=== PATIENT | male | born 1945 | race Caucasian/White ===

== ENCOUNTER → 2016-08-26 | Outpatient (CLI) | payer MEDICARE ==
[~2016-08-26] MED LIST: /AMIT10TA PO; /DULO30CA PO; /TAMS4CA PO; ATOR1TAB19 PO; FURO20TA2 PO; GABA-279 PO; GABA300C3 PO; OXYC10TA12 PO; OXYC30TA84 PO; OXYCPOW25 PO; PROS5TAB PO; QUET50TA2 PO; ROBA750T4 PO; TRAZ50TA4 PO; VIST25CA PO; VITA400T PO; VITA500C24 PO; elmiron PO; vitamin d PO
--- NOTE | 2016-09-11 02:13 | ECWPNPC ---
PATIENT NAME: NBA DORMAN : 1945 GENDER: MALE VISIT DATE: 08/26/2016 DISCHARGE DATE: 08/26/16 1458 VISIT LOCKED DATE TIME: PHYSICIAN: CHRYSTAL PARKER RESOURCE: CHRYSTAL PARKER REASON FOR APPOINTMENT 1. BLADDER HISTORY OF PRESENT ILLNESS HISTORY OF PRESENT ILLNESS: PAIN THE PATIENT DESCRIBES THE PAIN... FALL RISK SCREENING: SCREENING :NO FALLS IN THE PAST YEAR TODAY'S VISIT: NOTES: RATES PAIN TODAY 4/10. I HAVING SHARP SHOOTING PAIN IN LEFT LEG, AND NOTES LEG IS NUMB "ALL THE WAY DOWN" WHILE BE SEEING UROLOGY FOR A PSA AND UA ON 09/12/16. IS STILL HAVING BLADDDER PAIN WORST IN AM AND IN LATE EVENING.. CURRENT MEDICATIONS TAKING VITAMIN C 500 MG TABLET 1TAB ORALLY DAILY TAKING VITAMIN D 1000 TABLET 1TAB ORALLY DAILY TAKING FUROSEMIDE 20 MG TABLET 2 TABLET ORALLY ONCE A DAY TAKING TRAZODONE 100 100MG TABLET ORAL BEFORE BEDTIME TAKING FINASTERIDE 5 MG TABLET 1 TABLET ORALLY ONCE A DAY TAKING ATORVASTATIN CALCIUM 10 MG TABLET 1 TABLET ORALLY ONCE A DAY TAKING VITAMIN B COMPLEX - TABLET 1 TAB ORALLY ONCE DAILY TAKING CLONIDINE HCL 0.1 MG TABLET 1 TABLET ORALLY Q 8 HRS PRN WITHDRAWAL SYMPTOMS TAKING GABAPENTIN 300 MG CAPSULE 1 CAPSULE ORALLY FOUR TIMES DAILY TAKING FLOMAX 0.4 MG CAPSULE 2 CAPSULES ORALLY ONCE DAILY TAKING METHOCARBAMOL 750 MG TABLET 1 TABLET ORALLY TWICE A DAY TAKING OXYCODONE HCL 10 MG TABLET 1 TABLET ORALLY EVERY 6 HRS PRN PAIN MDD=4 TAKING DULOXETINE HCL 60 MG CAPSULE DELAYED RELEASE PARTICLES 1 CAPSULE ORALLY ONCE A DAY TAKING ROBAFEN 100 MG/5ML SYRUP 10 ML ORALLY EVERY 4 HRS NOT-TAKING MUCINEX 600 MG TABLET EXTENDED RELEASE 12 HOUR 1 TABLET NEEDED ORALLY EVERY 12 HRS UNKNOWN QUETIAPINE FUMARATE 50 MG TABLETS 2 TABLET AT BEDTIME ORALLY ONCE A DAY MEDICATION LIST REVIEWED AND RECONCILED WITH THE PATIENT PAST MEDICAL HISTORY ARTHRITIS GERD FIBROMYALGIA EDEMA TENDON SEPARATION RIGHT SHOULDER ALLERGIES N.K.D.A. SURGICAL HISTORY HIP REPLACEMENT 1996 MEDIAN NERVE SURGERY 2008 CYSTOSCOPY/HYDRODISTENSION 06/2011 REVISION OF LEFT HIP ARTHROPLASTY 04/2016 SOCIAL HISTORY GENERAL: TOBACCO USE ARE YOU A:NONSMOKER LEARNING BARRIERS / SPECIAL NEEDS ORIENTED TO PLAN OF CARE: PATIENT, PAIN MANAGEMENT PATIENT, ORIENTED TO PLAN OF CARE: PATIENT, PAIN MANAGEMENT PATIENT. NEW PATIENT PAIN DIARY TODAY'S VISITNOTES FROM 0-10, WHAT LEVEL IS YOUR PAIN TODAY?0 PAIN CLINIC PFS, CLERGY, PUBLIC HEALTH REFERRALS PFS REFERRAL NEEDED?NO CLERGY REFERRAL NEEDED?NO PUBLIC HEALTH REFERRAL NEEDED?NO WAS THE PROVIDER NOTIFIED OF ANY PERTINENT INFO?NO PFS REFERRAL NEEDED?NO CLERGY REFERRAL NEEDED?NO PUBLIC HEALTH REFERRAL NEEDED?NO WAS THE PROVIDER NOTIFIED OF ANY PERTINENT INFO?NO HOSPITALIZATION/MAJOR DIAGNOSTIC PROCEDURE SURGICAL RELATED REVIEW OF SYSTEMS CONSTITUTIONAL: ANY CHANGE IN YOUR MEDICAL CONDITION? NO . CHILLS NO . FEVER NO . INFECTION: DO YOU HAVE NEW INFECTIONS? NO . DO YOU HAVE HISTORY OF MRSA? NO . MUSCULOSKELETAL: ANY NEW PATTERNS OF PAIN OR NUMBNESS? NO . GASTROENTEROLOGY: ANY NEW CHANGE IN BOWEL CONTROL? NO . GENITOURINARY: ANY NEW CHANGE IN BLADDER CONTROL? NO . IS THERE A CHANCE YOU COULD BE ? NO . HEMATOLOGY/LYMPH: DO YOU TAKE ANY BLOOD THINNERS? (FOR EXAMPLE- COUMADIN, PLAVIX, AGGRENOX, PLATEL, PRADAXA, OR XARELTO) NO . WHEN WAS YOUR LAST DOSE? DATE: TIME: . NEUROLOGY: HAVE YOU FALLEN IN THE PAST 6 MONTHS? NO . ANY NEW EXTREMITY NUMBNESS OR WEAKNESS? YES NEW TINGLING LEFT FOOT X 2 MOS SINCE LEFT HIP SURGERY. SEES JAMILA APODACA 08/30/16. . CARDIOLOGY: DO YOU HAVE A PACEMAKER OR DEFIBRILLATOR? NO . RESPIRATORY: HAVE YOU BEEN SICK IN THE PAST WEEK? NO . FEVER NO . FLU LIKE SYMPTOMS? NO . COUGH NO . INTEGUMENTARY: DO YOU HAVE ANY RASHES OR OPEN SORES? NO . ALLERGIC/IMMUNO: ARE YOU ALLERGIC TO SHELLFISH OR IV DYE? NO . ANY NEW ALLERGIES? NO . PSYCHIATRIC: DO YOU HAVE THOUGHTS OF HURTING YOURSELF OR SOMEONE ELSE? NO . ARE YOU ABUSED, NEGLECTED, OR IN AN UNSAFE ENVIRONMENT? NO . ENDOCRINOLOGY: ARE YOU DIABETIC? NO . OTHER: DO YOU NEED ANY PRESCRIPTIONS? NO . IF YES, PLEASE LIST: ____ . ANY NEW PROBLEMS WITH YOUR MEDICATIONS? NO . WHEN DID YOU LAST EAT? ____ . WHEN DID YOU LAST DRINK? ____ . WHAT DID YOU LAST DRINK? ____ . NAME OF PERSON DRIVING YOU HOME? ____ . DO YOU HAVE ANY OTHER QUESTIONS OR CONCERNS NO . UROLOGY: GENERAL VERY POOR SLEEP DUE TO NOCTURIA . REVIEWED BY: PROVIDER: CHRYSTAL GROSS . VITAL SIGNS WT 190 LBS, HT 60 IN, BMI 37.10 INDEX, BP 157/74 MM HG, HR 78 /MIN, RR 16 /MIN, TEMP 97.7 F, OXYGEN SAT % 93%, NA INITIALS SC 14:07, REVIEWED BY: MLF. EXAMINATION GENERAL EXAMINATION: GENERAL APPEARANCE:GOOD COLOR. PSYCHALERT , ORIENTED X 3 , ANXIOUS. LUNGS:FEW SCATTERED WHEEZES. NO RALES/CRACKLES. FULL RESPIRATORY EXCURSION NOTED. HEART:HEART RATE REGULAR, NO S3, S4, MURMUR OR RUB. ABDOMEN:SOFT, DISTENDED, ACTIVE BOWEL SOUNDS.. MALE GENITOURINARY:TENDER WITH PALPATION OVER BLADDER/SYMPHISIS PUBIS. MUSCULOSKELETAL:MUSCLE STRENGTH TESTING 5/5 BILATERAL LPOWER EXTREMITIES. CANE USED FOR BALANCE. NO PAIN WITH PALPATION OVER LOW BACK.. EXTREMITIES:1+ ON RIGHT 2+ ON LEFT. 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 FOLLOW UP WITH UROLOGY AND ORTHOPEDICAS SLOWLY START HIP EXERCISES PER PHYSICAL THERAPY, FALLS CARE PLAN: 1. RECOMMEND REMOVING ALL THROW RUGS. 2. RECOMMEND NIGHT LIGHTS 3. RECOMMEND WEARING RUBBER SOLED SHOES AND TO NOT GO BAREFOOT. 4.. ADVISED TO CHANGE POSITION SLOWLY FROM SUPINE TO STANDING TO AVOID DIZZINESS. 5. ADVISED TO USE ASSISTIVE DEVICE SUCH CANE OR WALKER 6. , #128 - SCREENING BMI AND F/U PLAN IN : BMI ABOVE NORMAL TODAY. DISCUSSED WITH PATIENT NUTRITIONAL FOOD CHOICES TO ASSIST WITH WEIGHT LOSS. RECCOMMENDED REDUCING SALT, SUGAR, SODA INTAKE. RECOMMEND INCREASE ACTIVITY TO INCLUDE WALKING ON A REGULAR BASIS. CLINICAL NOTES: ISTOP REGISTRY REVIEWED AND DEMNOSTRATES COMPLLIANCE. BRINGS IN MEDICATIONS WHICH IS APPROPRIATE FOR WHAT WAS DISPENSED. RECENT URINE TOXICOLOGY REVIEWED. NO UNAUTHORIZED MEDICATIONS. NO ILLICIT SUBSTANCES AND PRESCRIBED MEDICATIONS WERE PRESENT. PROCEDURE CODES FA211 ESTABILISHED PATIENT [facility] CHARGE G6232 BP SCR PRFRM RCMDD DEFIND SCR INTVL G3415 PAIN ASSESS POS TOOL F/U PLAN DOC 3016F PT SCRND UNHLTHY [place] USE 1124F ACP DISCUSS-NO DSCNMKR DOCD 1036F TOBACCO NON-USER 0518F FALL PLAN OF CARE DOCD G8427 DOC MEDS VERIFIED W/PT OR RE G8417 BMI >=30 CALCUATE W/FOLLOWUP 3288F FALL RISK ASSESSMENT DOCD FOLLOW UP 7 WEEKS ELECTRONICALLY SIGNED BY CONSUELO CUELLAR ON 09/09/2016 AT 01:17 PM EST DISCLAIMER : THIS IS A VISIT SUMMARY EXTRACTED FROM THE [employer] CHART. IT IS NOT A COPY OF THE [employer] PROGRESS NOTE. MTDD
== END ==
LOC: M PAIN 14:20
PROVIDERS: ATTEND Nurse Practitioner Family
DX: Z09 Encounter for follow-up examination after completed treatment for conditions other than malignant neoplasm (principal); N30.10 Interstitial cystitis (chronic) without hematuria; R39.89 Other symptoms and signs involving the genitourinary system; M19.90 Unspecified osteoarthritis, unspecified site; K21.9 Gastro-esophageal reflux disease without esophagitis; M79.7 Fibromyalgia; Z79.891 Long term (current) use of opiate analgesic; Z79.899 Other long term (current) drug therapy

== ENCOUNTER → 2016-09-05 | Outpatient (CLI) | payer MEDICARE | LOC: M SMT 15:11 | PROVIDERS: ATTEND Nurse Practitioner Family | CPT/HCPCS: 36415; 81001; 87086; G0103 ==

== ENCOUNTER → 2016-11-01 | Outpatient (CLI) | payer MEDICARE ==
--- NOTE | 2016-11-06 23:39 | ECWPNPC ---
PATIENT NAME: NBA DORMAN : 1945 GENDER: MALE VISIT DATE: 11/01/2016 DISCHARGE DATE: 11/01/16 1612 VISIT LOCKED DATE TIME: PHYSICIAN: CHRYSTAL PARKER RESOURCE: CHRYSTAL PARKER REASON FOR APPOINTMENT 1. BLADDER HISTORY OF PRESENT ILLNESS HISTORY OF PRESENT ILLNESS: PAIN THE PATIENT DESCRIBES THE PAIN... FALL RISK SCREENING: SCREENING :NO FALLS IN THE PAST YEAR TODAY'S VISIT: NOTES: BLADDER PAIN UNCHANGED. RATES PAIN TODAY 5/10. EXPRESSES FRUSTRATION THAT HE IS STILL HAVING PAIN IN HIS LEFT HIP. ALSO NOTES THAT HE HAS NOT GONE OUT OF THE HOUSE IN WEEKS AND IS FEELING QUITE DEPRESSED. DENIES SUICIDAL THOUGHTS OR A PLAN.. CURRENT MEDICATIONS TAKING VITAMIN C 500 MG TABLET 1TAB ORALLY DAILY TAKING FUROSEMIDE 20 MG TABLET 2 TABLET ORALLY ONCE A DAY TAKING TRAZODONE 100 100MG TABLET ORAL BEFORE BEDTIME TAKING FINASTERIDE 5 MG TABLET 1 TABLET ORALLY ONCE A DAY TAKING ATORVASTATIN CALCIUM 10 MG TABLET 1 TABLET ORALLY ONCE A DAY TAKING VITAMIN B COMPLEX - TABLET 1 TAB ORALLY ONCE DAILY TAKING GABAPENTIN 300 MG CAPSULE 1 CAPSULE ORALLY FOUR TIMES DAILY TAKING DULOXETINE HCL 60 MG CAPSULE DELAYED RELEASE PARTICLES 1 CAPSULE ORALLY ONCE A DAY TAKING ROBAFEN 100 MG/5ML SYRUP 10 ML ORALLY EVERY 4 HRS TAKING AMITRIPTYLINE HCL 10 MG TABLET 1 TABLET ORALLY ONCE A DAY TAKING FLOMAX 0.4 MG CAPSULE 2 CAPSULES ORALLY ONCE A DAY TAKING OXYCODONE HCL 10 MG TABLET 1 TABLET ORALLY EVERY 6 HRS PRN PAIN MDD=4 TAKING VITAMIN D 1000 TABLET 1TAB ORALLY DAILY TAKING METHOCARBAMOL 750 MG TABLET 1 TABLET ORALLY TWICE A DAY NOT-TAKING PROSCAR 5 MG TABLET 1 TABLET ORALLY ONCE A DAY NOT-TAKING CLONIDINE HCL 0.1 MG TABLET 1 TABLET ORALLY Q 8 HRS PRN WITHDRAWAL SYMPTOMS NOT-TAKING MUCINEX 600 MG TABLET EXTENDED RELEASE 12 HOUR 1 TABLET NEEDED ORALLY EVERY 12 HRS UNKNOWN QUETIAPINE FUMARATE 50 MG TABLETS 2 TABLET AT BEDTIME ORALLY ONCE A DAY MEDICATION LIST REVIEWED AND RECONCILED WITH THE PATIENT PAST MEDICAL HISTORY ARTHRITIS GERD FIBROMYALGIA EDEMA TENDON SEPARATION RIGHT SHOULDER ALLERGIES N.K.D.A. SOCIAL HISTORY GENERAL: TOBACCO USE ARE YOU A:NONSMOKER LEARNING BARRIERS / SPECIAL NEEDS ORIENTED TO PLAN OF CARE: PATIENT, PAIN MANAGEMENT PATIENT, ORIENTED TO PLAN OF CARE: PATIENT, PAIN MANAGEMENT PATIENT. NEW PATIENT PAIN DIARY TODAY'S VISITNOTES FROM 0-10, WHAT LEVEL IS YOUR PAIN TODAY?0 PAIN CLINIC PFS, CLERGY, PUBLIC HEALTH REFERRALS PFS REFERRAL NEEDED?NO CLERGY REFERRAL NEEDED?NO PUBLIC HEALTH REFERRAL NEEDED?NO WAS THE PROVIDER NOTIFIED OF ANY PERTINENT INFO?NO PFS REFERRAL NEEDED?NO CLERGY REFERRAL NEEDED?NO PUBLIC HEALTH REFERRAL NEEDED?NO WAS THE PROVIDER NOTIFIED OF ANY PERTINENT INFO?NO REVIEW OF SYSTEMS CONSTITUTIONAL: ANY CHANGE IN YOUR MEDICAL CONDITION? NO . CHILLS NO . FEVER NO . INFECTION: DO YOU HAVE NEW INFECTIONS? NO . DO YOU HAVE HISTORY OF MRSA? NO . MUSCULOSKELETAL: ANY NEW PATTERNS OF PAIN OR NUMBNESS? NO . GASTROENTEROLOGY: ANY NEW CHANGE IN BOWEL CONTROL? NO . GENITOURINARY: ANY NEW CHANGE IN BLADDER CONTROL? NO . IS THERE A CHANCE YOU COULD BE ? NO . HEMATOLOGY/LYMPH: DO YOU TAKE ANY BLOOD THINNERS? (FOR EXAMPLE- COUMADIN, PLAVIX, AGGRENOX, PLATEL, PRADAXA, OR XARELTO) NO . WHEN WAS YOUR LAST DOSE? DATE: TIME: . NEUROLOGY: HAVE YOU FALLEN IN THE PAST 6 MONTHS? NO . ANY NEW EXTREMITY NUMBNESS OR WEAKNESS? NO . CARDIOLOGY: DO YOU HAVE A PACEMAKER OR DEFIBRILLATOR? NO . RESPIRATORY: HAVE YOU BEEN SICK IN THE PAST WEEK? NO . FEVER NO . FLU LIKE SYMPTOMS? NO . COUGH YES WITH OCCASIONAL PRODUCTION. COUGH PRODUCES SPASMS AND THIS INCREASES PAIN . INTEGUMENTARY: DO YOU HAVE ANY RASHES OR OPEN SORES? NO . ALLERGIC/IMMUNO: ARE YOU ALLERGIC TO SHELLFISH OR IV DYE? NO . ANY NEW ALLERGIES? NO . PSYCHIATRIC: DO YOU HAVE THOUGHTS OF HURTING YOURSELF OR SOMEONE ELSE? NO . ARE YOU ABUSED, NEGLECTED, OR IN AN UNSAFE ENVIRONMENT? NO . ENDOCRINOLOGY: ARE YOU DIABETIC? NO . OTHER: DO YOU NEED ANY PRESCRIPTIONS? NO . IF YES, PLEASE LIST: ____ . ANY NEW PROBLEMS WITH YOUR MEDICATIONS? NO . WHEN DID YOU LAST EAT? ____ . WHEN DID YOU LAST DRINK? ____ . WHAT DID YOU LAST DRINK? ____ . NAME OF PERSON DRIVING YOU HOME? ____ . DO YOU HAVE ANY OTHER QUESTIONS OR CONCERNS NO . REVIEWED BY: PROVIDER: CHRYSTAL PARKER CHIEF EXECUTIVE OFFICER . VITAL SIGNS WT 201.4 LBS, HT 60 IN, BMI 39.33 INDEX, BP 151/71 MM HG, HR 80 /MIN, RR 18 /MIN, TEMP 99.4 F, OXYGEN SAT % 93%, NA INITIALS SC 15:09, REVIEWED BY: KG. EXAMINATION GENERAL EXAMINATION: GENERAL APPEARANCE:GOOD COLOR. PSYCHALERT , ORIENTED X 3 , ANXIOUS. LUNGS:FEW SCATTERED WHEEZES. NO RALES/CRACKLES. FULL RESPIRATORY EXCURSION NOTED. HEART:HEART RATE REGULAR, NO S3, S4, MURMUR OR RUB. ABDOMEN:SOFT, DISTENDED, ACTIVE BOWEL SOUNDS.. MALE GENITOURINARY:TENDER WITH PALPATION OVER BLADDER/SYMPHISIS PUBIS. MUSCULOSKELETAL:MUSCLE STRENGTH TESTING 5/5 BILATERAL LPOWER EXTREMITIES. CANE USED FOR BALANCE. NO PAIN WITH PALPATION OVER LOW BACK. TENDER WITH PALPATION OVER LEFT TROCANTER. EXTREMITIES:1+ ON RIGHT 2+ ON LEFT. 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 PROCEDURE CODES FA211 ESTABILISHED PATIENT [facility] CHARGE G8730 PAIN ASSESS POS TOOL F/U PLAN DOC G8427 DOC MEDS VERIFIED W/PT OR RE DISPOSITION & COMMUNICATION FOLLOW UP 4-6 WEEKS ELECTRONICALLY SIGNED BY CONSUELO CUELLAR ON 11/06/2016 AT 09:04 AM EDT DISCLAIMER : THIS IS A VISIT SUMMARY EXTRACTED FROM THE [employer] CHART. IT IS NOT A COPY OF THE [employer] PROGRESS NOTE. CHARBEL
== END ==
LOC: M PAIN 15:00
PROVIDERS: ATTEND Nurse Practitioner Family
DX: N30.10 Interstitial cystitis (chronic) without hematuria (principal); N40.0 Benign prostatic hyperplasia without lower urinary tract symptoms; R39.89 Other symptoms and signs involving the genitourinary system; Z79.891 Long term (current) use of opiate analgesic; Z79.899 Other long term (current) drug therapy

== ENCOUNTER → 2016-12-13 | Outpatient (CLI) | payer MEDICARE ==
[~2016-12-13] MED LIST changes: +BENZ100C5 PO; +DULO1CAP3 PO; +FLOM5CAP PO; +GABA-282 PO; -GABA300C3 PO; +PANT40TA2 PO; +STOO100C PO; +VITA-130 PO; +VITA100037 PO; +VITATAB11 PO
--- NOTE | 2017-01-03 00:49 | ECWPNPC ---
PATIENT NAME: NBA DORMAN : 1945 GENDER: MALE VISIT DATE: 12/13/2016 DISCHARGE DATE: 12/13/16 1433 VISIT LOCKED DATE TIME: PHYSICIAN: CHRYSTAL PARKER RESOURCE: CHRYSTAL PARKER REASON FOR APPOINTMENT 1. BLADDER HISTORY OF PRESENT ILLNESS HISTORY OF PRESENT ILLNESS: PAIN THE PATIENT DESCRIBES THE PAIN... FALL RISK SCREENING: SCREENING :NO FALLS IN THE PAST YEAR TODAY'S VISIT: NOTES: RATES PAIN TODAY 4/10. DESCRIBES PAIN INTERMITTANT, SHARP, AND STABBING, BURNING AND IS LOCATED IN BLADDER AREA. . CURRENT MEDICATIONS TAKING VITAMIN C 500 MG TABLET 1TAB ORALLY DAILY TAKING FUROSEMIDE 20 MG TABLET 2 TABLET ORALLY ONCE A DAY TAKING TRAZODONE 100 100MG TABLET ORAL BEFORE BEDTIME TAKING FINASTERIDE 5 MG TABLET 1 TABLET ORALLY ONCE A DAY TAKING ATORVASTATIN CALCIUM 10 MG TABLET 1 TABLET ORALLY ONCE A DAY TAKING DULOXETINE HCL 60 MG CAPSULE DELAYED RELEASE PARTICLES 1 CAPSULE ORALLY ONCE A DAY TAKING FLOMAX 0.4 MG CAPSULE 2 CAPSULES ORALLY ONCE A DAY TAKING VITAMIN D 1000 TABLET 1TAB ORALLY DAILY TAKING METHOCARBAMOL 750 MG TABLET 1 TABLET ORALLY TWICE A DAY TAKING VITAMIN B COMPLEX - TABLET 1 TAB ORALLY ONCE DAILY TAKING GABAPENTIN 300 MG CAPSULE 1 CAPSULE ORALLY FOUR TIMES DAILY TAKING OXYCODONE HCL 10 MG TABLET 1 TABLET ORALLY EVERY 6 HRS PRN PAIN MDD=4 TAKING BENZONATATE 100 MG CAPSULE 1 CAPSULE NEEDED ORALLY THREE TIMES A DAY NEEDED FOR COUGH TAKING PANTOPRAZOLE SODIUM 40 MG TABLET DELAYED RELEASE 1 TABLET ORALLY TWICE A DAY TAKING COLACE 100 MG CAPSULE 2 CAPSULE NEEDED ORALLY ONCE A DAY NOT-TAKING ROBAFEN 100 MG/5ML SYRUP 10 ML ORALLY EVERY 4 HRS NOT-TAKING PROSCAR 5 MG TABLET 1 TABLET ORALLY ONCE A DAY NOT-TAKING CLONIDINE HCL 0.1 MG TABLET 1 TABLET ORALLY Q 8 HRS PRN WITHDRAWAL SYMPTOMS NOT-TAKING MUCINEX 600 MG TABLET EXTENDED RELEASE 12 HOUR 1 TABLET NEEDED ORALLY EVERY 12 HRS UNKNOWN QUETIAPINE FUMARATE 50 MG TABLETS 2 TABLET AT BEDTIME ORALLY ONCE A DAY MEDICATION LIST REVIEWED AND RECONCILED WITH THE PATIENT PAST MEDICAL HISTORY ARTHRITIS GERD FIBROMYALGIA EDEMA TENDON SEPARATION RIGHT SHOULDER ALLERGIES N.K.D.A. REVIEW OF SYSTEMS CONSTITUTIONAL: ANY CHANGE IN YOUR MEDICAL CONDITION? NO . CHILLS NO . FEVER NO . INFECTION: DO YOU HAVE NEW INFECTIONS? NO . DO YOU HAVE HISTORY OF MRSA? NO . MUSCULOSKELETAL: ANY NEW PATTERNS OF PAIN OR NUMBNESS? NO . GASTROENTEROLOGY: ANY NEW CHANGE IN BOWEL CONTROL? NO . ACID REFLUX TO BE EVALUATED WITH UPCOMING ENDOSCOPY . GENITOURINARY: ANY NEW CHANGE IN BLADDER CONTROL? NO . IS THERE A CHANCE YOU COULD BE ? NO . HEMATOLOGY/LYMPH: DO YOU TAKE ANY BLOOD THINNERS? (FOR EXAMPLE- COUMADIN, PLAVIX, AGGRENOX, PLATEL, PRADAXA, OR XARELTO) NO . WHEN WAS YOUR LAST DOSE? DATE: TIME: . NEUROLOGY: HAVE YOU FALLEN IN THE PAST 6 MONTHS? NO . ANY NEW EXTREMITY NUMBNESS OR WEAKNESS? NO . CARDIOLOGY: DO YOU HAVE A PACEMAKER OR DEFIBRILLATOR? NO . RESPIRATORY: HAVE YOU BEEN SICK IN THE PAST WEEK? NO . FEVER NO . FLU LIKE SYMPTOMS? NO . COUGH YES - THICK MUCOUS, HARD TO EXPECTORATE. WHEN ASKED SPECIFICALLY STATES TESSALON PERLES ARE MINIMALLY EFFECTIVE . INTEGUMENTARY: DO YOU HAVE ANY RASHES OR OPEN SORES? NO . ALLERGIC/IMMUNO: ARE YOU ALLERGIC TO SHELLFISH OR IV DYE? NO . ANY NEW ALLERGIES? NO . PSYCHIATRIC: DO YOU HAVE THOUGHTS OF HURTING YOURSELF OR SOMEONE ELSE? NO . ARE YOU ABUSED, NEGLECTED, OR IN AN UNSAFE ENVIRONMENT? NO . ENDOCRINOLOGY: ARE YOU DIABETIC? NO . OTHER: DO YOU NEED ANY PRESCRIPTIONS? YES . IF YES, PLEASE LIST: BENZONATATE . ANY NEW PROBLEMS WITH YOUR MEDICATIONS? NO . WHEN DID YOU LAST EAT? ____ . WHEN DID YOU LAST DRINK? ____ . WHAT DID YOU LAST DRINK? ____ . NAME OF PERSON DRIVING YOU HOME? ____ . DO YOU HAVE ANY OTHER QUESTIONS OR CONCERNS NO . PSYCHOLOGY: DEPRESSION DEPRESSED MOOD - LACK OF DESIRE TO PARTICIPATE . REVIEWED BY: PROVIDER: CHRYSTAL GROSS . VITAL SIGNS WT 199.0 LBS, HT 60 IN, BMI 38.86 INDEX, BP 132/69 MM HG, HR 73 /MIN, RR 16 /MIN, TEMP 98.7 F, OXYGEN SAT % 96%, NA INITIALS TL 1404, REVIEWED BY: CS. EXAMINATION GENERAL EXAMINATION: GENERAL APPEARANCE:GOOD COLOR. PSYCHALERT , ORIENTED X 3 , ANXIOUS. LUNGS:FEW SCATTERED WHEEZES. NO RALES/CRACKLES. FULL RESPIRATORY EXCURSION NOTED. HEART:HEART RATE REGULAR, NO S3, S4, MURMUR OR RUB. ABDOMEN:SOFT, DISTENDED, ACTIVE BOWEL SOUNDS.. MALE GENITOURINARY:TENDER WITH PALPATION OVER BLADDER/SYMPHISIS PUBIS. MUSCULOSKELETAL:MUSCLE STRENGTH TESTING 5/5 BILATERAL LPOWER EXTREMITIES. CANE USED FOR BALANCE. NO PAIN WITH PALPATION OVER LOW BACK. TENDER WITH PALPATION OVER LEFT TROCANTER. EXTREMITIES:1+ ON RIGHT 2+ ON LEFT. 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 CONTINUE WALKING. KEEP APPOINTMENT WITH HIP SURGEON. RESTART PHYSICAL THERAPY. PROCEDURE CODES FA211 ESTABILISHED PATIENT [facility] CHARGE G8730 PAIN ASSESS POS TOOL F/U PLAN DOC G8427 DOC MEDS VERIFIED W/PT OR RE DISPOSITION & COMMUNICATION FOLLOW UP 2 MONTHS (REASON: BLADDER PAIN) ELECTRONICALLY SIGNED BY CONSUELO CUELLAR ON 01/02/2017 AT 06:05 PM EDT DISCLAIMER : THIS IS A VISIT SUMMARY EXTRACTED FROM THE [employer] CHART. IT IS NOT A COPY OF THE [employer] PROGRESS NOTE. CHARBEL
== END | disposition home or self-care (01) ==
LOC: M PAIN 14:00
PROVIDERS: ATTEND Nurse Practitioner Family
DX: G89.29 Other chronic pain (principal); N30.10 Interstitial cystitis (chronic) without hematuria; M79.7 Fibromyalgia; K21.9 Gastro-esophageal reflux disease without esophagitis; M19.90 Unspecified osteoarthritis, unspecified site; R60.0 Localized edema; Z79.899 Other long term (current) drug therapy

== ENCOUNTER → 2016-12-20 | Outpatient (CLI) | payer MEDICARE ==
[~2016-12-20] VITALS: Ht 152.4 cm; Wt 90.7 kg
[~2016-12-20] MED LIST changes: +ALBUTEROL SULFATE 2.5 MG/0.5 ML INH NEB SOLN INH ONE; +LIDOCAINE 2% INJ 100 MG/5 ML SDV (FOR ANES.) As Ordered ONE; +NS 1,000 ML IV ONE; +PROPOFOL 200 MG/20 ML VIAL As Ordered ONE
--- NOTE | 2016-12-20 09:29 | ROOR ---
Patient Name: Brennon Tolbert Procedure Date: 12/20/2016 9:08 AM Date of : 1945 Age: 71 Room: [facility] Gender: Male Note Status: Finalized Procedure: Upper GI endoscopy Indications: Dysphagia Providers: Paok XIAO MD Referring MD: NA PAREDES Requesting Provider: Medicines: Monitored Anesthesia Care Complications: No immediate complications. Procedure: Pre-Anesthesia Assessment: - The heart rate, respiratory rate, oxygen saturations, blood pressure, adequacy of pulmonary ventilation, and response to care were monitored throughout the procedure. The Endoscope was introduced through the mouth, and advanced to the second part of duodenum. The upper GI endoscopy was accomplished without difficulty. The patient tolerated the procedure well. Findings: The examined esophagus was normal. No endoscopic abnormality was evident in the esophagus to explain the patient's complaint of dysphagia. It was decided, however, to proceed with dilation of the entire esophagus. The scope was withdrawn. Dilation was performed with a Warner dilator with no resistance at 54 Fr. The dilation site was examined following endoscope reinsertion and showed no change. The entire examined stomach was normal. The examined duodenum was normal. Impression: - Normal esophagus. - No definite endoscopic esophageal abnormality to explain patient's dysphagia-cricopharyngeus indentation may perhaps be a bit prominent. Esophagus dilated with 54 F warner dilator. - Normal stomach. - Normal examined duodenum. - No specimens collected. - (I note dry mucosal membranes-Xerostomia in mouth and esophagus. Cause for dysphagia may be related to salivary dysfunction). Recommendation: - Use Protonix (pantoprazole) 40 mg PO BID. - Observe patient's clinical course. - I anticipate no further need for intervention. Pako Xiao MD Pako XIAO MD 12/20/2016 9:29:02 AM This report has been signed electronically. Number of Addenda: 0 Note Initiated On: 12/20/2016 9:08 AM Estimated Blood Loss: Estimated blood loss: none.
[2016-12-20 09:45] VITALS: BP 100/68
== END ==
LOC: M OPP 08:07
PROVIDERS: ATTEND Internal Medicine Gastroenterology
DX: R13.10 Dysphagia, unspecified (principal); J44.9 Chronic obstructive pulmonary disease, unspecified; M19.90 Unspecified osteoarthritis, unspecified site; N40.0 Benign prostatic hyperplasia without lower urinary tract symptoms; E78.5 Hyperlipidemia, unspecified; Z79.899 Other long term (current) drug therapy; Z88.8 Allergy status to other drugs, medicaments and biological substances

== ENCOUNTER → 2017-02-11 | Outpatient (CLI) | payer MEDICARE ==
[~2017-02-11] MED LIST changes: -ALBUTEROL SULFATE 2.5 MG/0.5 ML INH NEB SOLN INH ONE; -LIDOCAINE 2% INJ 100 MG/5 ML SDV (FOR ANES.) As Ordered ONE; -NS 1,000 ML IV ONE; -PROPOFOL 200 MG/20 ML VIAL As Ordered ONE; +TRAZ50TA11 PO; -TRAZ50TA4 PO; -VITA-130 PO; -VITA100037 PO; +VITA100067 PO; +VITA500T PO
--- NOTE | 2017-03-01 01:37 | ECWPNPC ---
PATIENT NAME: NBA DORMAN : 1945 GENDER: MALE VISIT DATE: 02/11/2017 DISCHARGE DATE: 02/11/17 1451 VISIT LOCKED DATE TIME: PHYSICIAN: CHRYSTAL PARKER RESOURCE: CHRYSTAL PARKER REASON FOR APPOINTMENT 1. BLADDER HISTORY OF PRESENT ILLNESS HISTORY OF PRESENT ILLNESS: PAIN THE PATIENT DESCRIBES THE PAIN... FALL RISK SCREENING: SCREENING :NO FALLS IN THE PAST YEAR TODAY'S VISIT: NOTES: RATES PAIN TODAY 4/10. DESCRIBES PAIN INTERMITTANT, BURNING, SHARP AND STABBING. REPORTS THE OXYCODOEN IS HELPFUL FOR THE BLADDER AREA PAIN. . CURRENT MEDICATIONS TAKING VITAMIN C 500 MG TABLET 1TAB ORALLY DAILY TAKING FUROSEMIDE 20 MG TABLET 2 TABLET ORALLY ONCE A DAY TAKING TRAZODONE 100 100MG TABLET ORAL BEFORE BEDTIME TAKING FINASTERIDE 5 MG TABLET 1 TABLET ORALLY ONCE A DAY TAKING ATORVASTATIN CALCIUM 10 MG TABLET 1 TABLET ORALLY ONCE A DAY TAKING DULOXETINE HCL 60 MG CAPSULE DELAYED RELEASE PARTICLES 1 CAPSULE ORALLY ONCE A DAY TAKING FLOMAX 0.4 MG CAPSULE 2 CAPSULES ORALLY ONCE A DAY TAKING VITAMIN D 1000 TABLET 1TAB ORALLY DAILY TAKING METHOCARBAMOL 750 MG TABLET 1 TABLET ORALLY TWICE A DAY TAKING VITAMIN B COMPLEX - TABLET 1 TAB ORALLY ONCE DAILY TAKING GABAPENTIN 300 MG CAPSULE 1 CAPSULE ORALLY FOUR TIMES DAILY TAKING PANTOPRAZOLE SODIUM 40 MG TABLET DELAYED RELEASE 1 TABLET ORALLY TWICE A DAY TAKING COLACE 100 MG CAPSULE 2 CAPSULE NEEDED ORALLY ONCE A DAY TAKING OXYCODONE HCL 10 MG TABLET 1 TABLET ORALLY EVERY 6 HRS PRN PAIN MDD=4 NOT-TAKING ROBAFEN 100 MG/5ML SYRUP 10 ML ORALLY EVERY 4 HRS NOT-TAKING PROSCAR 5 MG TABLET 1 TABLET ORALLY ONCE A DAY NOT-TAKING CLONIDINE HCL 0.1 MG TABLET 1 TABLET ORALLY Q 8 HRS PRN WITHDRAWAL SYMPTOMS NOT-TAKING MUCINEX 600 MG TABLET EXTENDED RELEASE 12 HOUR 1 TABLET NEEDED ORALLY EVERY 12 HRS UNKNOWN QUETIAPINE FUMARATE 50 MG TABLETS 2 TABLET AT BEDTIME ORALLY ONCE A DAY MEDICATION LIST REVIEWED AND RECONCILED WITH THE PATIENT PAST MEDICAL HISTORY ARTHRITIS GERD FIBROMYALGIA EDEMA TENDON SEPARATION RIGHT SHOULDER ALLERGIES N.K.D.A. SURGICAL HISTORY HIP REPLACEMENT 1996 MEDIAN NERVE SURGERY 2008 CYSTOSCOPY/HYDRODISTENSION 06/2011 REVISION OF LEFT HIP ARTHROPLASTY 04/2016 HOSPITALIZATION/MAJOR DIAGNOSTIC PROCEDURE SURGICAL RELATED REVIEW OF SYSTEMS REVIEWED BY: PROVIDER: CHRYSTAL PARKER TELECOMMUNICATIONS ANALYST . CONSTITUTIONAL: ANY CHANGE IN YOUR MEDICAL CONDITION? NO . CHILLS NO . FEVER NO . INFECTION: DO YOU HAVE NEW INFECTIONS? NO . DO YOU HAVE HISTORY OF MRSA? NO . MUSCULOSKELETAL: ANY NEW PATTERNS OF PAIN OR NUMBNESS? NO . GASTROENTEROLOGY: ANY NEW CHANGE IN BOWEL CONTROL? NO - SIGNIFICANT ISSUES WITH CONSTIPATION . GENITOURINARY: ANY NEW CHANGE IN BLADDER CONTROL? NO . IS THERE A CHANCE YOU COULD BE ? NO . HEMATOLOGY/LYMPH: DO YOU TAKE ANY BLOOD THINNERS? (FOR EXAMPLE- COUMADIN, PLAVIX, AGGRENOX, PLATEL, PRADAXA, OR XARELTO) NO . WHEN WAS YOUR LAST DOSE? DATE: TIME: . NEUROLOGY: HAVE YOU FALLEN IN THE PAST 6 MONTHS? NO . ANY NEW EXTREMITY NUMBNESS OR WEAKNESS? NO . CARDIOLOGY: DO YOU HAVE A PACEMAKER OR DEFIBRILLATOR? NO . RESPIRATORY: HAVE YOU BEEN SICK IN THE PAST WEEK? NO . FEVER NO . FLU LIKE SYMPTOMS? NO . COUGH IMPROVED SINCE STARTING ON PROTONIX BID . INTEGUMENTARY: DO YOU HAVE ANY RASHES OR OPEN SORES? YES - LEFT LEG . ALLERGIC/IMMUNO: ARE YOU ALLERGIC TO SHELLFISH OR IV DYE? NO . ANY NEW ALLERGIES? NO . PSYCHIATRIC: DO YOU HAVE THOUGHTS OF HURTING YOURSELF OR SOMEONE ELSE? NO . ARE YOU ABUSED, NEGLECTED, OR IN AN UNSAFE ENVIRONMENT? NO . ENDOCRINOLOGY: ARE YOU DIABETIC? NO . OTHER: DO YOU NEED ANY PRESCRIPTIONS? YES, DULOXETINE, METHOCARBAMOL . IF YES, PLEASE LIST: ____ . ANY NEW PROBLEMS WITH YOUR MEDICATIONS? NO . WHEN DID YOU LAST EAT? ____ . WHEN DID YOU LAST DRINK? ____ . WHAT DID YOU LAST DRINK? ____ . NAME OF PERSON DRIVING YOU HOME? ____ . DO YOU HAVE ANY OTHER QUESTIONS OR CONCERNS NO . VITAL SIGNS WT 203.8 LBS, HT 60 IN, BMI 39.80 INDEX, BP 144/74 MM HG, HR 76 /MIN, RR 18 /MIN, TEMP 98.1 F, OXYGEN SAT % 91%, SAFE IN ENV? (Y/N) Y, NA INITIALS [place] 13:52, REVIEWED BY: THOMAS. EXAMINATION GENERAL EXAMINATION: GENERAL APPEARANCE:GOOD COLOR. PSYCHALERT , ORIENTED X 3 , ANXIOUS. LUNGS:FEW SCATTERED WHEEZES. NO RALES/CRACKLES. FULL RESPIRATORY EXCURSION NOTED. HEART:HEART RATE REGULAR, NO S3, S4, MURMUR OR RUB. ABDOMEN:SOFT, DISTENDED, ACTIVE BOWEL SOUNDS.. MALE GENITOURINARY:TENDER WITH PALPATION OVER BLADDER/SYMPHISIS PUBIS. MUSCULOSKELETAL:MUSCLE STRENGTH TESTING 5/5 BILATERAL LPOWER EXTREMITIES. CANE USED FOR BALANCE. NO PAIN WITH PALPATION OVER LOW BACK. MINIMAL TENDERNESS WITH PALPATION OVER LEFT TROCANTER. EXTREMITIES:1+ ON RIGHT 2+ ON LEFT. 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 CONTINUE GOOD DIET, AND GET AT LEAST 4 GLASSES OF FLUID PER DAY. CALL TAMERA GTZ ABOUT OPEN AREAS/REDNESS ON LEFT LEG. PROCEDURE CODES FA211 ESTABILISHED PATIENT [facility] FACILITY CHARGE G8730 PAIN ASSESS POS TOOL F/U PLAN DOC G8427 DOC MEDS VERIFIED W/PT OR RE DISPOSITION & COMMUNICATION FOLLOW UP 2 MONTHS (REASON: BLADDER) ELECTRONICALLY SIGNED BY CONSUELO CUELLAR ON 02/28/2017 AT 09:00 AM EDT DISCLAIMER : THIS IS A VISIT SUMMARY EXTRACTED FROM THE [employer] CHART. IT IS NOT A COPY OF THE [employer] PROGRESS NOTE. CHARBEL
== END ==
LOC: M PAIN 14:00
PROVIDERS: ATTEND Nurse Practitioner Family
DX: N30.10 Interstitial cystitis (chronic) without hematuria (principal); Z79.891 Long term (current) use of opiate analgesic; R10.9 Unspecified abdominal pain; Z79.899 Other long term (current) drug therapy

== ENCOUNTER → 2017-04-30 | Outpatient (CLI) | payer MEDICARE ==
--- NOTE | 2017-05-15 00:39 | ECWPNPC ---
PATIENT NAME: NBA DORMAN : 1945 GENDER: MALE VISIT DATE: 04/30/2017 DISCHARGE DATE: 04/30/17 1519 VISIT LOCKED DATE TIME: PHYSICIAN: CHRYSTAL PARKER RESOURCE: CHRYSTAL PARKER REASON FOR APPOINTMENT 1. MEDS HISTORY OF PRESENT ILLNESS FALL RISK SCREENING: SCREENING :NO FALLS IN THE PAST YEAR PAIN SCREENING: PATIENT HAS A COMPLAINT OF ACUTE OR CHRONIC PAIN :YES TODAY'S VISIT: NOTES: RATES PAIN TODAY 4/10 DESCRIBES PAIN INTERMITTANT, BURNING, SHARP AND STABBING, SORE. PAIN IS IN THE PELVIS AND BLADEER AND HAS FREQ URINATION. DENIES HEMATURIA. CURRENT MEDICATIONS TAKING VITAMIN C 500 MG TABLET 1TAB ORALLY DAILY TAKING FUROSEMIDE 20 MG TABLET 2 TABLET ORALLY ONCE A DAY TAKING TRAZODONE 100 100MG TABLET ORAL BEFORE BEDTIME TAKING FINASTERIDE 5 MG TABLET 1 TABLET ORALLY ONCE A DAY TAKING ATORVASTATIN CALCIUM 10 MG TABLET 1 TABLET ORALLY ONCE A DAY TAKING FLOMAX 0.4 MG CAPSULE 2 CAPSULES ORALLY ONCE A DAY TAKING VITAMIN D 1000 TABLET 1TAB ORALLY DAILY TAKING VITAMIN B COMPLEX - TABLET 1 TAB ORALLY ONCE DAILY TAKING GABAPENTIN 300 MG CAPSULE 1 CAPSULE ORALLY FOUR TIMES DAILY TAKING PANTOPRAZOLE SODIUM 40 MG TABLET DELAYED RELEASE 1 TABLET ORALLY TWICE A DAY TAKING COLACE 100 MG CAPSULE 2 CAPSULE NEEDED ORALLY ONCE A DAY TAKING METHOCARBAMOL 750 MG TABLET 1 TABLET ORALLY TWICE A DAY TAKING DULOXETINE HCL 60 MG CAPSULE DELAYED RELEASE PARTICLES 1 CAPSULE ORALLY ONCE A DAY TAKING OXYCODONE HCL 10 MG TABLET 1 TABLET ORALLY EVERY 6 HRS PRN PAIN MDD=4 NOT-TAKING ROBAFEN 100 MG/5ML SYRUP 10 ML ORALLY EVERY 4 HRS NOT-TAKING PROSCAR 5 MG TABLET 1 TABLET ORALLY ONCE A DAY NOT-TAKING CLONIDINE HCL 0.1 MG TABLET 1 TABLET ORALLY Q 8 HRS PRN WITHDRAWAL SYMPTOMS NOT-TAKING MUCINEX 600 MG TABLET EXTENDED RELEASE 12 HOUR 1 TABLET NEEDED ORALLY EVERY 12 HRS UNKNOWN QUETIAPINE FUMARATE 50 MG TABLETS 2 TABLET AT BEDTIME ORALLY ONCE A DAY MEDICATION LIST REVIEWED AND RECONCILED WITH THE PATIENT PAST MEDICAL HISTORY ARTHRITIS GERD FIBROMYALGIA EDEMA TENDON SEPARATION RIGHT SHOULDER ALLERGIES N.K.D.A. SURGICAL HISTORY HIP REPLACEMENT 1996 MEDIAN NERVE SURGERY 2008 CYSTOSCOPY/HYDRODISTENSION 06/2011 REVISION OF LEFT HIP ARTHROPLASTY 04/2016 SOCIAL HISTORY GENERAL: TOBACCO USE ARE YOU A:NONSMOKER CAFFEINE CAFFEINE USE?YES HOW OFTEN AND HOW MUCH? 1 SODA PER DAY LEARNING BARRIERS / SPECIAL NEEDS ORIENTED TO PLAN OF CARE: PATIENT, PAIN MANAGEMENT PATIENT, ORIENTED TO PLAN OF CARE: PATIENT, PAIN MANAGEMENT PATIENT. NEW PATIENT PAIN DIARY TODAY'S VISITNOTES FROM 0-10, WHAT LEVEL IS YOUR PAIN TODAY?0 PAIN CLINIC PFS, CLERGY, PUBLIC HEALTH REFERRALS PFS REFERRAL NEEDED?NO CLERGY REFERRAL NEEDED?NO PUBLIC HEALTH REFERRAL NEEDED?NO WAS THE PROVIDER NOTIFIED OF ANY PERTINENT INFO?YES HAS THE PATIENT BEEN EDUCATED REGARDING HIS/HER PLAN OF CARE?YES HAS THE PATIENT BEEN EDUCATED REGARDING PAIN, THE RISK FOR PAIN, THE IMPORTANCE OF EFFECTIVE PAIN MANAGEMENT, AND THE PAIN ASSESSMENT PROCESS?YES REVIEWED BY: JOSE ANGEL. HOSPITALIZATION/MAJOR DIAGNOSTIC PROCEDURE SURGICAL RELATED REVIEW OF SYSTEMS REVIEWED BY: PROVIDER: CHRYSTAL GROSS . CONSTITUTIONAL: ANY CHANGE IN YOUR MEDICAL CONDITION? NO . CHILLS NO . FEVER NO . INFECTION: DO YOU HAVE NEW INFECTIONS? NO . DO YOU HAVE HISTORY OF MRSA? NO . MUSCULOSKELETAL: ANY NEW PATTERNS OF PAIN OR NUMBNESS? NO . SYTEMIC LUPUS NO . GASTROENTEROLOGY: ANY NEW CHANGE IN BOWEL CONTROL? NO . BARRETTS ESOPHAGUS NO . CIRRHOSIS NO . HEPATITIS NO . LIVER FAILURE NO . ACID REFLUX NO . CONSTIPATION HAVING TO STRAIN AND FEELS CONSTIPATED. NO HEMATACHEZIA . UNEXPLAINED WEIGHT LOSS NO . GENITOURINARY: ANY NEW CHANGE IN BLADDER CONTROL? NO . IS THERE A CHANCE YOU COULD BE ? NO . HEMATOLOGY/LYMPH: DO YOU TAKE ANY BLOOD THINNERS? (FOR EXAMPLE- COUMADIN, PLAVIX, AGGRENOX, PLATEL, PRADAXA, OR XARELTO) NO . WHEN WAS YOUR LAST DOSE? DATE: TIME: . LOW PLATELET COUNT NO . SICKLE CELL DISEASE NO . VON WILLIEBRANDS NO . FACTOR V LEIDEN NO . THALLASEMIA NO . ANEMIA NO . EASY BRUISING NO . NEUROLOGY: HAVE YOU FALLEN IN THE PAST 6 MONTHS? NO . ANY NEW EXTREMITY NUMBNESS OR WEAKNESS? NO . HEAD INJURY NO . DEMENTIA NO . CEREBRAL PALSY NO . MULTIPLE SCLEROSIS NO . DIZZINESS NO . HEADACHE NO . STROKES NO . VERTIGO NO . CARDIOLOGY: DO YOU HAVE A PACEMAKER OR DEFIBRILLATOR? NO . ANGINA NO . HEART ATTACK NO . HEART SURGERY NO . CONGESTIVE HEART FAILURE/FLUID OVERLOAD NO . CHEST PAIN NO . HIGH BLOOD PRESSURE NO . IRREGULAR HEART BEAT NO . RESPIRATORY: HAVE YOU BEEN SICK IN THE PAST WEEK? NO . FEVER NO . FLU LIKE SYMPTOMS? NO . CPAP NO . BYPAP NO . ASTHMA NO . EMPHYSEMA NO . CHRONIC LUNG DISEASES NO . SHORTNESS OF BREATH ON EXERTION NO . COUGH YES - NONE PRODUCTIVE. DOES NOT RESPOND TO ANY TREATMENT TRIED SO FAR . SNORING NO . INTEGUMENTARY: DO YOU HAVE ANY RASHES OR OPEN SORES? NO . ALLERGIC/IMMUNO: ARE YOU ALLERGIC TO SHELLFISH OR IV DYE? NO . ANY NEW ALLERGIES? NO . PSYCHIATRIC: DO YOU HAVE THOUGHTS OF HURTING YOURSELF OR SOMEONE ELSE? NO . ARE YOU ABUSED, NEGLECTED, OR IN AN UNSAFE ENVIRONMENT? NO . ENDOCRINOLOGY: ARE YOU DIABETIC? NO . THYROID DISORDER NO . OTHER: DO YOU NEED ANY PRESCRIPTIONS? YES, NEEDS VIT B COMPLEX REFILLED . IF YES, PLEASE LIST: ____ . ANY NEW PROBLEMS WITH YOUR MEDICATIONS? NO . WHEN DID YOU LAST EAT? ____ . WHEN DID YOU LAST DRINK? ____ . WHAT DID YOU LAST DRINK? ____ . NAME OF PERSON DRIVING YOU HOME? ____ . DO YOU HAVE ANY OTHER QUESTIONS OR CONCERNS NO . VITAL SIGNS WT 203 LBS, HT 60 IN, BMI 39.64 INDEX, BP 133/60 MM HG, HR 67 /MIN, RR 18 /MIN, TEMP 98.2 F, OXYGEN SAT % 93%, SAFE IN ENV? (Y/N) Y, NA INITIALS AW 1418, REVIEWED BY: JOSE ANGEL. EXAMINATION GENERAL EXAMINATION: PSYCHALERT , ORIENTED X 3 , APPROPRIATE MOOD AND AFFECT . LUNGS:CLEAR TO AUSCULTATION BILATERALLY, COUGH INTERMITTANT, DRY. HEART:HEART RATE REGULAR. ABDOMEN:DISTENDED, BOWEL SOUNDS QUIET . TENDER OVER PELVIS/BLADDER AREA. MUSCULOSKELETAL:GAIT STIFF, ANTALGIC WITH RIGHT LEG LIMP . 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 CALL WHEN SCRIPTS DUESTOP B COMPLEX VITAMIN - OK TO RESTART IF BLADDER AREA BURNING INCREASES. CLINICAL NOTES: ISTOP REGISTRY REVIEWED AND DEMNOSTRATES COMPLLIANCE. BRINGS IN MEDICATIONS WHICH IS APPROPRIATE FOR WHAT WAS DISPENSED. RECENT URINE TOXICOLOGY REVIEWED. NO UNAUTHORIZED MEDICATIONS. NO ILLICIT SUBSTANCES AND PRESCRIBED MEDICATIONS WERE PRESENT. PROCEDURE CODES FA211 ESTABILISHED PATIENT [facility] FACILITY CHARGE [id number] PAIN ASSESS POS TOOL F/U PLAN DOC G8427 DOC MEDS VERIFIED W/PT OR RE DISPOSITION & COMMUNICATION FOLLOW UP 2 MONTHS (REASON: BLADDER PAIN) ELECTRONICALLY SIGNED BY CONSUELO CUELLAR ON 05/14/2017 AT 01:19 PM EDT DISCLAIMER : THIS IS A VISIT SUMMARY EXTRACTED FROM THE [employer] CHART. IT IS NOT A COPY OF THE [employer] PROGRESS NOTE. CHARBEL
== END ==
LOC: M PAIN 14:15
PROVIDERS: ATTEND Nurse Practitioner Family
DX: N30.10 Interstitial cystitis (chronic) without hematuria (principal); G89.29 Other chronic pain; Z79.891 Long term (current) use of opiate analgesic; Z79.899 Other long term (current) drug therapy; R39.89 Other symptoms and signs involving the genitourinary system; R10.9 Unspecified abdominal pain

== ENCOUNTER → 2017-07-16 | Outpatient (CLI) | payer MEDICARE ==
--- NOTE | 2017-08-07 01:02 | ECWPNPC ---
PATIENT NAME: NBA DORMAN : 1945 GENDER: MALE VISIT DATE: 07/16/2017 DISCHARGE DATE: 07/16/17 1610 VISIT LOCKED DATE TIME: PHYSICIAN: CHRYSTAL PARKER RESOURCE: CHRYSTAL PARKER HISTORY OF PRESENT ILLNESS TODAY'S VISIT: NOTES: RATES PAIN TODAY 4/10. DESCRIBES PAIN BURNING SHARP AND STABBING AND PAIN IS INTERMITTANT. PAIN IS CENTERED IN BADDER AND PELVIS AND IS EXACERBATED BY URINATION. CAN FEEL URGE TO URINATE 1-10 TIMES IN HOUR. DENIED HEMATURIA. CURRENT MEDICATIONS TAKING VITAMIN C 500 MG TABLET 1TAB ORALLY DAILY TAKING FUROSEMIDE 20 MG TABLET 2 TABLET ORALLY ONCE A DAY TAKING TRAZODONE 100 100MG TABLET ORAL BEFORE BEDTIME TAKING FINASTERIDE 5 MG TABLET 1 TABLET ORALLY ONCE A DAY TAKING ATORVASTATIN CALCIUM 10 MG TABLET 1 TABLET ORALLY ONCE A DAY TAKING FLOMAX 0.4 MG CAPSULE 2 CAPSULES ORALLY ONCE A DAY TAKING VITAMIN D 1000 TABLET 1TAB ORALLY DAILY TAKING VITAMIN B COMPLEX - TABLET 1 TAB ORALLY ONCE DAILY TAKING PANTOPRAZOLE SODIUM 40 MG TABLET DELAYED RELEASE 1 TABLET ORALLY TWICE A DAY TAKING COLACE 100 MG CAPSULE 2 CAPSULE NEEDED ORALLY ONCE A DAY TAKING METHOCARBAMOL 750 MG TABLET 1 TABLET ORALLY TWICE A DAY TAKING DULOXETINE HCL 60 MG CAPSULE DELAYED RELEASE PARTICLES 1 CAPSULE ORALLY ONCE A DAY TAKING GABAPENTIN 300 MG CAPSULE 1 CAPSULE ORALLY FOUR TIMES DAILY TAKING OXYCODONE HCL 10 MG TABLET 1 TABLET ORALLY EVERY 6 HRS PRN PAIN MDD=4 NOT-TAKING ROBAFEN 100 MG/5ML SYRUP 10 ML ORALLY EVERY 4 HRS NOT-TAKING PROSCAR 5 MG TABLET 1 TABLET ORALLY ONCE A DAY NOT-TAKING CLONIDINE HCL 0.1 MG TABLET 1 TABLET ORALLY Q 8 HRS PRN WITHDRAWAL SYMPTOMS NOT-TAKING MUCINEX 600 MG TABLET EXTENDED RELEASE 12 HOUR 1 TABLET NEEDED ORALLY EVERY 12 HRS NOT-TAKING QUETIAPINE FUMARATE 50 MG TABLETS 2 TABLET AT BEDTIME ORALLY ONCE A DAY MEDICATION LIST REVIEWED AND RECONCILED WITH THE PATIENT PAST MEDICAL HISTORY ARTHRITIS GERD FIBROMYALGIA EDEMA TENDON SEPARATION RIGHT SHOULDER ALLERGIES N.K.D.A. SOCIAL HISTORY GENERAL: TOBACCO USE ARE YOU A:NONSMOKER CAFFEINE CAFFEINE USE?YES HOW OFTEN AND HOW MUCH? 1 SODA PER DAY EPISCOPALIAN [id number] NONE NO SABIANIST BELIEFS THAT WOULD IMPACT HEALTH CARE. LEARNING BARRIERS / SPECIAL NEEDS ORIENTED TO PLAN OF CARE: PATIENT, PAIN MANAGEMENT PATIENT, ORIENTED TO PLAN OF CARE: PATIENT, PAIN MANAGEMENT PATIENT. NEW PATIENT PAIN DIARY TODAY'S VISITNOTES FROM 0-10, WHAT LEVEL IS YOUR PAIN TODAY?0 PAIN CLINIC PFS, CLERGY, PUBLIC HEALTH REFERRALS PFS REFERRAL NEEDED?NO CLERGY REFERRAL NEEDED?NO PUBLIC HEALTH REFERRAL NEEDED?NO WAS THE PROVIDER NOTIFIED OF ANY PERTINENT INFO?YES HAS THE PATIENT BEEN EDUCATED REGARDING HIS/HER PLAN OF CARE?YES HAS THE PATIENT BEEN EDUCATED REGARDING PAIN, THE RISK FOR PAIN, THE IMPORTANCE OF EFFECTIVE PAIN MANAGEMENT, AND THE PAIN ASSESSMENT PROCESS?YES REVIEWED BY: JOSE ANGEL. ADVANCE DIRECTIVES HEALTH CARE PROXY?NO WOULD YOU LIKE MORE INFORMATION?NO REVIEW OF SYSTEMS FOLLOW-UP ROS: CARDIOLOGY: NEGATIVE FOR, CHEST PAIN . GENERAL: RECENT URI . PULMONOLOGY: POSITIVE FOR, COUGH WITH PRODUCTION . VITAL SIGNS WT 200 LBS, HT 60 IN, BMI 39.06 INDEX, BP 112/64 MM HG, HR 73 /MIN, RR 16 /MIN, TEMP 98.1 F, OXYGEN SAT % 90, NA INITIALS SC 15:20, REVIEWED BY: BRITTANY. EXAMINATION GENERAL EXAMINATION: PSYCHALERT , ORIENTED X 3 , APPROPRIATE MOOD AND AFFECT . LUNGS:BILATERAL WHEEZES, , COUGH INTERMITTANT, DRY. HEART:HEART RATE REGULAR. ABDOMEN:DISTENDED, BOWEL SOUNDS QUIET . TENDER OVER PELVIS/BLADDER AREA. MUSCULOSKELETAL:GAIT STIFF, ANTALGIC WITH RIGHT LEG LIMP . 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 CLINICAL NOTES: ISTOP REGISTRY REVIEWED AND DEMNOSTRATES COMPLLIANCE (REF # [id number]) . BRINGS IN MEDICATIONS WHICH IS APPROPRIATE FOR WHAT WAS DISPENSED. RECENT URINE TOXICOLOGY REVIEWED. NO UNAUTHORIZED MEDICATIONS. NO ILLICIT SUBSTANCES AND PRESCRIBED MEDICATIONS WERE PRESENT. , RISKS AND BENEFITS OF NARCOTIC/OPIOD MEDICATIONS WERE REVIEWED WITH PATIENT - THIS INCLUDES BUT IS NOT LIMITED TO RISK OF DEPENDANCE/DEVELOPMENT OF ADDICTION, MOOD DISTURBANCE AND DEPRESSION, OSTEOPOROSIS, HORMONAL AND LABIDAL CHANGES, RESPIRATORY DEPRESSION AND . PATIENT IS ADVISED NOT TO DRIVE WHILE ON THESE MEDICATIONS. PROCEDURE CODES FA211 ESTABILISHED PATIENT [facility] FACILITY CHARGE G6530 PAIN ASSESS POS TOOL F/U PLAN DOC G8427 DOC MEDS VERIFIED W/PT OR RE DISPOSITION & COMMUNICATION FOLLOW UP 7 WEEKS (REASON: BLADDER PAIN) ELECTRONICALLY SIGNED BY CONSUELO CUELLAR ON 08/06/2017 AT 07:41 PM EST DISCLAIMER : THIS IS A VISIT SUMMARY EXTRACTED FROM THE [employer] CHART. IT IS NOT A COPY OF THE [employer] PROGRESS NOTE. CHARBEL
== END ==
LOC: M PAIN 14:30
PROVIDERS: ATTEND Nurse Practitioner Family
DX: N30.10 Interstitial cystitis (chronic) without hematuria (principal); Z79.891 Long term (current) use of opiate analgesic; Z79.899 Other long term (current) drug therapy

== ENCOUNTER → 2017-09-08 | Outpatient (CLI) | payer MEDICARE ==
[2017-09-08 19:57] LABS: ANION GAP 5 MEQ/L (8-16); BLOOD UREA NITROGEN 15 MG/DL (7-18); CALCIUM LEVEL 9.1 MG/DL (8.8-10.2); CARBON DIOXIDE LEVEL 38 MEQ/L (21-32); CHLORIDE LEVEL 99 MEQ/L (98-107); CREATININE FOR GFR 0.96 MG/DL (0.70-1.30); GLOMERULAR FILTRATION RATE > 60.0 (>42); GLUCOSE, FASTING 106 MG/DL (70-100); POTASSIUM SERUM 4.2 MEQ/L (3.5-5.1); SODIUM LEVEL 142 MEQ/L (136-145)
== END ==
LOC: M SMT 10:40
DX: R31.29 Other microscopic hematuria (principal)
CPT/HCPCS: 80048

== ENCOUNTER → 2017-09-11 | Outpatient (CLI) | payer MEDICARE | LOC: M PAIN 15:00 | DX: N30.10 Interstitial cystitis (chronic) without hematuria (principal); T40.2X5A Adverse effect of other opioids, initial encounter; K59.03 Drug induced constipation; K21.9 Gastro-esophageal reflux disease without esophagitis; Z79.891 Long term (current) use of opiate analgesic; Z79.899 Other long term (current) drug therapy | CPT/HCPCS: G0463 ==

== ENCOUNTER → 2017-09-18 | Outpatient (CLI) | payer MEDICARE ==
[~2017-09-18] MED LIST changes: -/AMIT10TA PO; -/DULO30CA PO; -/TAMS4CA PO; -ATOR1TAB19 PO; -BENZ100C5 PO; -DULO1CAP3 PO; -FLOM5CAP PO; -FURO20TA2 PO; -GABA-279 PO; -GABA-282 PO; +ISOVUE-370 76% 100ML VIAL (Q9967) As Ordered; -OXYC10TA12 PO; -OXYC30TA84 PO; -OXYCPOW25 PO; -PANT40TA2 PO; -PROS5TAB PO; -QUET50TA2 PO; -ROBA750T4 PO; -STOO100C PO; -TRAZ50TA11 PO; -VIST25CA PO; -VITA100067 PO; -VITA400T PO; -VITA500C24 PO; -VITA500T PO; -VITATAB11 PO; -elmiron PO; -vitamin d PO
== END ==
LOC: M RAD 13:39
DX: R31.29 Other microscopic hematuria (principal)
CPT/HCPCS: Q9967

== ENCOUNTER → 2017-11-10 | Outpatient (CLI) | payer MEDICARE | LOC: M PAIN 10:15 | DX: N30.10 Interstitial cystitis (chronic) without hematuria (principal); Z79.891 Long term (current) use of opiate analgesic; T40.2X5A Adverse effect of other opioids, initial encounter; K59.03 Drug induced constipation; K21.9 Gastro-esophageal reflux disease without esophagitis; Z79.899 Other long term (current) drug therapy | CPT/HCPCS: G0463 ==

== ENCOUNTER → 2018-02-09 | Outpatient (CLI) | payer MEDICARE | LOC: M PAIN 13:15 | DX: N30.10 Interstitial cystitis (chronic) without hematuria (principal); T40.2X5S Adverse effect of other opioids, sequela; K59.03 Drug induced constipation; M19.90 Unspecified osteoarthritis, unspecified site; K21.9 Gastro-esophageal reflux disease without esophagitis; M79.7 Fibromyalgia; Z79.891 Long term (current) use of opiate analgesic; Z79.899 Other long term (current) drug therapy; Z96.649 Presence of unspecified artificial hip joint | CPT/HCPCS: G0463 ==

== ENCOUNTER → 2018-07-15 | Outpatient (CLI) | payer MEDICARE | LOC: M PAIN 11:00 | DX: N30.10 Interstitial cystitis (chronic) without hematuria (principal); G89.29 Other chronic pain; M19.90 Unspecified osteoarthritis, unspecified site; M79.7 Fibromyalgia; K21.9 Gastro-esophageal reflux disease without esophagitis; E66.01 Morbid (severe) obesity due to excess calories; Z68.39 Body mass index [BMI] 39.0-39.9, adult; Z79.891 Long term (current) use of opiate analgesic; Z79.899 Other long term (current) drug therapy; Z96.649 Presence of unspecified artificial hip joint | CPT/HCPCS: G0463 ==

== ENCOUNTER → 2018-09-03 | Outpatient (REF) | payer MEDICARE ==
[~2018-09-03] MED LIST changes: +/AMIT10TA PO; +/DULO30CA PO; +/TAMS4CA PO; +ATOR1TAB19 PO; +BENZ-18 PO; +DULO1CAP3 PO; +FLOM0.4C39 PO; +FURO20TA2 PO; +GABA-1171 PO; +GABA-843 PO; -ISOVUE-370 76% 100ML VIAL (Q9967) As Ordered; +OXYC10TA12 PO; +OXYC30TA84 PO; +OXYCPOW25 PO; +PANT40TA3 PO; +PROS5TAB PO; +QUET50TA2 PO; +ROBA750T4 PO; +STOO100C PO; +TRAZ-160 PO; +VIST25CA PO; +VITA100067 PO; +VITA400T PO; +VITA500C24 PO; +VITA500T PO; +VITATAB11 PO; +elmiron PO; +vitamin d PO
[2018-09-03 18:54] LABS: BACTERIA, URINE AUTO NEGATIVE (NEGATIVE); MUCUS, URINE SMALL (NEGATIVE); RBC, URINE AUTO TNTC /HPF (0-3); SQUAMOUS EPITHELIAL CELL UR AU 0 /HPF (0-6); WBC, URINE AUTO 9 /HPF (0-3)
== END ==
LOC: M SMT 17:24
PROVIDERS: ATTEND Specialist
DX: N30.10 Interstitial cystitis (chronic) without hematuria (principal)
CPT/HCPCS: 52000; 81015; 87086; G0463

== ENCOUNTER → 2018-09-10 | Outpatient (CLI) | payer MEDICARE ==
[2018-09-10 15:05] LABS: BLOOD UREA NITROGEN 10 MG/DL (7-18); CALCIUM LEVEL 8.8 MG/DL (8.8-10.2); CARBON DIOXIDE LEVEL 29 MEQ/L (21-32); CHLORIDE LEVEL 99 MEQ/L (98-107); CREATININE FOR GFR 0.96 MG/DL (0.70-1.30); GLOMERULAR FILTRATION RATE > 60.0 (>42); GLUCOSE, FASTING 84 MG/DL (70-100); SODIUM LEVEL 139 MEQ/L (136-145)
== END ==
LOC: M SMT 11:22
PROVIDERS: ATTEND Specialist
DX: R82.8 Abnormal findings on cytological and histological examination of urine (principal); N30.10 Interstitial cystitis (chronic) without hematuria

== ENCOUNTER → 2018-09-22 | Outpatient (CLI) | payer MEDICARE ==
--- NOTE | 2018-10-08 00:24 | ECWPNPC ---
PATIENT NAME: NBA DORMAN : 1945 GENDER: MALE VISIT DATE: 09/22/2018 DISCHARGE DATE: 09/22/18 1209 VISIT LOCKED DATE TIME: PHYSICIAN: NURIA FELIX RESOURCE: NURIA FELIX REASON FOR APPOINTMENT 1. MEDICATION MANAGEMENT HISTORY OF PRESENT ILLNESS HISTORY OF PRESENT ILLNESS: HERE FOR ROUTINE F/U AND MEDICINE MANAGEMENT FOR CHRONIC PELVIC PAIN/GROIN PAIN.DESCRIBES PAIN INTERMITTENT,SHARP AND STABBING PAIN.RATING PAIN VAS 5/10.HISTORY OF CHRONIC INTERSTITIAL CYSTITIS.CURRENTLY USING OXYCODONE 10MG Q6H PRN FOR PAIN.FINDS MEDICATION SOMEWHAT EFFECTIVE.DENIES SIDE EFFECTS. PAIN THE PATIENT DESCRIBES THE PAIN... THE PATIENT DESCRIBES THE PAIN... FALL RISK SCREENING: SCREENING :NO FALLS IN THE PAST YEAR CURRENT MEDICATIONS TAKING VITAMIN C 500 MG TABLET 1TAB ORALLY DAILY TAKING FUROSEMIDE 20 MG TABLET 2 TABLET ORALLY ONCE A DAY TAKING TRAZODONE 100 100MG TABLET ORAL BEFORE BEDTIME TAKING FINASTERIDE 5 MG TABLET 1 TABLET ORALLY ONCE A DAY TAKING ATORVASTATIN CALCIUM 10 MG TABLET 1 TABLET ORALLY ONCE A DAY TAKING VITAMIN D 2000 UNIT CAPSULE 1TAB ORALLY DAILY TAKING PANTOPRAZOLE SODIUM 40 MG TABLET DELAYED RELEASE 1 TABLET ORALLY TWICE A DAY TAKING GABAPENTIN 300 MG CAPSULE 1 CAPSULE ORALLY FOUR TIMES DAILY TAKING VITAMIN B COMPLEX - TABLET 1 TAB ORALLY ONCE DAILY TAKING GUAIFENESIN 100 MG/5ML SYRUP 10 ML NEEDED ORALLY EVERY 4 HRS TAKING PYRIDIUM 100 MG TABLET 1 TABLET AFTER MEALS ORALLY THREE TIMES A DAY NEEDED FOR BURNING OR BLADDER PAIN TAKING PHENAZOPYRIDINE HCL 95 MG TABLET 1 TABLETS AFTER MEALS ORALLY THREE TIMES A DAY TAKING ELMIRON 100 MG CAPSULE 1 CAPSULE ON AN EMPTY STOMACH ORALLY THREE TIMES A DAY TAKING MOVANTIK 25 MG TABLET 1 TABLET IN THE MORNING ORALLY ONCE A DAY TAKING DULOXETINE HCL 60 MG CAPSULE DELAYED RELEASE PARTICLES 1 CAPSULE ORALLY ONCE A DAY TAKING METHOCARBAMOL 750 MG TABLET 1 TABLET ORALLY TWICE A DAY TAKING OXYCODONE HCL 10 MG TABLET 1 TABLET ORALLY EVERY 6 HRS PRN PAIN MDD=4 TAKING FLOMAX 0.4 MG CAPSULE 2 CAPSULES ORALLY ONCE DAILY TAKING PROSCAR 5 MG TABLET 1 TABLET ORALLY ONCE A DAY NOT-TAKING BACTRIM DS 800-160 MG TABLET 1 TABLET 1 HOUR PRIOR TO YOUR CYSTOSCOPY ORALLY ONCE NOT-TAKING COLACE 100 MG CAPSULE 2 CAPSULE NEEDED ORALLY ONCE A DAY NOT-TAKING ROBAFEN 100 MG/5ML SYRUP 10 ML ORALLY EVERY 4 HRS NOT-TAKING CLONIDINE HCL 0.1 MG TABLET 1 TABLET ORALLY Q 8 HRS PRN WITHDRAWAL SYMPTOMS NOT-TAKING MUCINEX 600 MG TABLET EXTENDED RELEASE 12 HOUR 1 TABLET NEEDED ORALLY EVERY 12 HRS NOT-TAKING QUETIAPINE FUMARATE 50 MG TABLETS 2 TABLET AT BEDTIME ORALLY ONCE A DAY MEDICATION LIST REVIEWED AND RECONCILED WITH THE PATIENT PAST MEDICAL HISTORY ARTHRITIS GERD FIBROMYALGIA EDEMA TENDON SEPARATION RIGHT SHOULDER ALLERGIES N.K.D.A. SURGICAL HISTORY HIP REPLACEMENT 1996 MEDIAN NERVE SURGERY 2008 CYSTOSCOPY/HYDRODISTENSION 06/2011 REVISION OF LEFT HIP ARTHROPLASTY 04/2016 CYSTOSCOPY 09/03/2018 SOCIAL HISTORY GENERAL: TOBACCO USE ARE YOU A:FORMER SMOKER HOW LONG HAS IT BEEN SINCE YOU LAST SMOKED?> 10 YEARS ALCOHOL SCREENING DID YOU HAVE A DRINK CONTAINING ALCOHOL IN THE PAST YEAR?NO POINTS0 INTERPRETATIONNEGATIVE RECREATIONAL DRUG USE DRUG USE?NO CAFFEINE CAFFEINE USE?YES HOW OFTEN AND HOW MUCH? 1 SODA PER DAY SEXUAL HX HAD SEX IN THE LAST 12 MONTHS (VAGINAL, ORAL, OR ANAL)?NO HAVE YOU EVER HAD AN STD?NO BAPTISM [id number] NONE NO LUTHERAN BELIEFS THAT WOULD IMPACT HEALTH CARE. LANGUAGE LANGUAGES SPOKEN:MACEDONIAN EDUCATION LEVEL OF EDUCATION:COLLEGE LEARNING BARRIERS / SPECIAL NEEDS CHANGE FROM LAST VISIT?NO BARRIERS TO LEARNING?NO HEARING IMPAIRED?NO VISION IMPAIRED?YES COGNITIVELY IMPAIRED?NO :CORRECTIVE LENSES READINESS TO LEARN?YES LEARNING PREFERENCES?NO LEARNING CAPABILITIES PRESENT?YES EMOTIONAL BARRIERS?NO SPECIAL DEVICES?NO HERBARIUM CURATOR NEEDED?NO DOMESTIC VIOLENCE DO YOU FEEL SAFE IN YOUR ENVIRONMENT?YES NEW PATIENT PAIN DIARY TODAY'S VISIT NOTES, FROM 0-10, WHAT LEVEL IS YOUR PAIN TODAY? 0. PAIN CLINIC PFS, CLERGY, PUBLIC HEALTH REFERRALS PFS REFERRAL NEEDED?NO CLERGY REFERRAL NEEDED?NO PUBLIC HEALTH REFERRAL NEEDED?NO WAS THE PROVIDER NOTIFIED OF ANY PERTINENT INFO?YES HAS THE PATIENT BEEN EDUCATED REGARDING HIS/HER PLAN OF CARE?YES HAS THE PATIENT BEEN EDUCATED REGARDING PAIN, THE RISK FOR PAIN, THE IMPORTANCE OF EFFECTIVE PAIN MANAGEMENT, AND THE PAIN ASSESSMENT PROCESS?YES ADVANCE DIRECTIVE ADVANCE DIRECTIVE DISCUSSED WITH PATIENT:YES HCP CHRYSTAL DORMAN [phone] REVIEWED WITH PT 09/22/18 1155 LAS. HOSPITALIZATION/MAJOR DIAGNOSTIC PROCEDURE SURGICAL RELATED REVIEW OF SYSTEMS REVIEWED BY: PROVIDER: NURIA GROSS . CONSTITUTIONAL: ANY CHANGE IN YOUR MEDICAL CONDITION? NO . CHILLS NO . FEVER NO . INFECTION: DO YOU HAVE NEW INFECTIONS? NO . DO YOU HAVE HISTORY OF MRSA? NO . MUSCULOSKELETAL: ANY NEW PATTERNS OF PAIN OR NUMBNESS? NO . GASTROENTEROLOGY: ANY NEW CHANGE IN BOWEL CONTROL? NO . GENITOURINARY: ANY NEW CHANGE IN BLADDER CONTROL? NO . IS THERE A CHANCE YOU COULD BE ? NO . HEMATOLOGY/LYMPH: DO YOU TAKE ANY BLOOD THINNERS? (FOR EXAMPLE- COUMADIN, PLAVIX, AGGRENOX, PLATEL, PRADAXA, OR XARELTO) NO . WHEN WAS YOUR LAST DOSE? DATE: TIME: . NEUROLOGY: HAVE YOU FALLEN IN THE PAST 12 MONTHS? NO . ANY NEW EXTREMITY NUMBNESS OR WEAKNESS? NO . CARDIOLOGY: DO YOU HAVE A PACEMAKER OR DEFIBRILLATOR? NO . RESPIRATORY: HAVE YOU BEEN SICK IN THE PAST WEEK? NO . FEVER NO . FLU LIKE SYMPTOMS? NO . COUGH NO . INTEGUMENTARY: DO YOU HAVE ANY RASHES OR OPEN SORES? NO . ALLERGIC/IMMUNO: ARE YOU ALLERGIC TO IV DYE? NO . ANY NEW ALLERGIES? NO . PSYCHIATRIC: DO YOU HAVE THOUGHTS OF HURTING YOURSELF OR SOMEONE ELSE? NO . ARE YOU ABUSED, NEGLECTED, OR IN AN UNSAFE ENVIRONMENT? NO . ENDOCRINOLOGY: ARE YOU DIABETIC? NO . OTHER: DO YOU NEED ANY PRESCRIPTIONS? YES . IF YES, PLEASE LIST: ____OXYCODONE ON 09/30 . ANY NEW PROBLEMS WITH YOUR MEDICATIONS? NO . WHEN DID YOU LAST EAT? ____ . WHEN DID YOU LAST DRINK? ____ . WHAT DID YOU LAST DRINK? ____ . NAME OF PERSON DRIVING YOU HOME? ____ . DO YOU HAVE ANY OTHER QUESTIONS OR CONCERNS NO . VITAL SIGNS WT 201.6 LBS, HT 60 IN, BMI 39.37 INDEX, BP 122/56 MM HG, HR 70 /MIN, RR 18 /MIN, TEMP 98.1 F, OXYGEN SAT % 91%, SAFE IN ENV? (Y/N) YES, NA INITIALS VT 11:36, REVIEWED BY: YOBANY. EXAMINATION GENERAL EXAMINATION: GENERAL APPEARANCE:AWAKE,ALERT ,PLEAASANT . PSYCHAFFECT NORMAL . LUNGS:LUNG HOLMAN ARE CLEAR TO AUSCULTATION BILATERALLY. GOOD MOVEMENT OF AIR . HEART:S1, S2 IN A REGULAR RATE AND RHYTHM. NO SIGNIFICANT MURMURS, RUBS OR GALLOPS NOTED . ASSESSMENTS INTERSTITIAL CYSTITIS - N30.10 (PRIMARY) TREATMENT INTERSTITIAL CYSTITIS CONTINUE MOVANTIK TABLET, 25 MG, 1 TABLET IN THE MORNING, ORALLY, ONCE A DAY REFILL OXYCODONE HCL TABLET, 10 MG, 1 TABLET, ORALLY, EVERY 6 HRS PRN PAIN MDD=4, 30 DAY(S), 120, REFILLS 0 NOTES: ISTOP REGISTRY REVIEWED AND DEMONSTRATES COMPLLIANCE. BRINGS IN MEDICATIONS WHICH IS APPROPRIATE FOR WHAT WAS DISPENSED. RECENT URINE TOXICOLOGY REVIEWED. NO UNAUTHORIZED MEDICATIONS. NO ILLICIT SUBSTANCES AND PRESCRIBED MEDICATIONS WERE PRESENT. , RISKS AND BENEFITS OF NARCOTIC/OPIOD MEDICATIONS WERE REVIEWED WITH PATIENT - THIS INCLUDES BUT IS NOT LIMITED TO RISK OF DEPENDANCE/DEVELOPMENT OF ADDICTION, MOOD DISTURBANCE AND DEPRESSION, OSTEOPOROSIS, HORMONAL AND LABIDAL CHANGES, RESPIRATORY DEPRESSION AND . PATIENT IS ADVISED NOT TO DRIVE OR DRINK ALCOHOL WHILE ON THESE MEDICATIONS. PROCEDURE CODES FA211 ESTABILISHED PATIENT [facility] CHARGE DISPOSITION & COMMUNICATION FOLLOW UP 3 MONTHS ELECTRONICALLY SIGNED BY RENATO CARBONE ON 10/07/2018 AT 02:07 PM EST DISCLAIMER : THIS IS A VISIT SUMMARY EXTRACTED FROM THE [employer] CHART. IT IS NOT A COPY OF THE [employer] PROGRESS NOTE. CHARBEL
== END ==
LOC: M PAIN 11:15
PROVIDERS: ATTEND Nurse Practitioner Family
DX: N30.10 Interstitial cystitis (chronic) without hematuria (principal); M19.90 Unspecified osteoarthritis, unspecified site; K21.9 Gastro-esophageal reflux disease without esophagitis; M79.7 Fibromyalgia; Z96.642 Presence of left artificial hip joint; Z87.891 Personal history of nicotine dependence; Z79.891 Long term (current) use of opiate analgesic; Z79.899 Other long term (current) drug therapy

== ENCOUNTER → 2018-10-08 | Outpatient (CLI) | payer MEDICARE ==
[~2018-10-08] MED LIST changes: +ISOVUE-370 76% 100ML VIAL (Q9967) As Ordered ONE
--- NOTE | 2018-10-08 17:59 | REP ---
CT of the abdomen and pelvis without and with IV contrast, without bowel contrast: The studies performed for interstitial cystitis. Comparison is 09/18/2017. Initially a scanning is performed without IV contrast. This is followed by dual phase post IV contrast scanning, initially during the portal venous phase of enhancement and again later during the renal excretion phase of enhancement. The bladder is poorly distended. Additionally there is a left hip arthroplasty with beam-hardening artifacts significantly obscuring the inferior pelvis and bladder. Nevertheless, there is focal bladder wall irregularity along the posterolateral bladder wall on the left. This is nonspecific and could be postsurgical, infectious or neoplastic. However, it appears to be unchanged from the prior study. It appears to be just at and posterior to the left trigone. There is no left hydronephrosis or hydroureter. There are no renal or ureteral calculi. There is mild pararenal stranding, not significantly changed. The hepatic parenchyma, gallbladder, pancreas, spleen and adrenals are unremarkable. The abdominal aorta is unremarkable. There is no retroperitoneal adenopathy or mass. There is sigmoid colon diverticulosis. The CT of acute tear of the colitis. Pelvis: The appendix is unremarkable. There is no adenopathy or mass. There are findings in the bladder as described. Impression: There is focal irregularity of the bladder wall posterolaterally on the left in the region of the trigone. This is unchanged in appearance from the comparison study. The finding is nonspecific and could be postsurgical, infectious or neoplastic. There is no hydronephrosis. There are no renal collecting system calculi. No renal masses are identified. Sigmoid colon diverticulosis without diverticulitis. Otherwise, negative CT of the abdomen and pelvis Electronically Signed by Garry Scott MD 10/08/2018 05:51 P
== END ==
LOC: M RAD 14:56
PROVIDERS: ATTEND Specialist
DX: N30.10 Interstitial cystitis (chronic) without hematuria (principal)
CPT/HCPCS: 74178; Q9967

== ENCOUNTER → 2018-12-31 | Outpatient (CLI) | payer MEDICARE ==
[~2018-12-31] MED LIST changes: -/AMIT10TA PO; -/DULO30CA PO; -/TAMS4CA PO; +AMIT1TAB10 PO; +CYMB1CAP5 PO; -ISOVUE-370 76% 100ML VIAL (Q9967) As Ordered ONE
--- NOTE | 2019-01-20 01:25 | ECWPNPC ---
PATIENT NAME: NBA DORMAN : 1945 GENDER: MALE VISIT DATE: 12/31/2018 DISCHARGE DATE: 12/31/18 1222 VISIT LOCKED DATE TIME: PHYSICIAN: NURIA FELIX RESOURCE: NURIA FELIX REASON FOR APPOINTMENT 1. MED MGMT HISTORY OF PRESENT ILLNESS HISTORY OF PRESENT ILLNESS: HERE FOR ROUTINE F/U AND MEDICINE MANAGEMENT FOR CHRONIC PELVIC PAIN/GROIN PAIN.DESCRIBES PAIN INTERMITTENT,SHARP AND STABBING PAIN.RATING PAIN VAS 5/10.HISTORY OF CHRONIC INTERSTITIAL CYSTITIS.CURRENTLY USING OXYCODONE 10MG Q6H PRN FOR PAIN.FINDS MEDICATION SOMEWHAT EFFECTIVE.DENIES SIDE EFFECTS. PAIN THE PATIENT DESCRIBES THE PAIN... THE PATIENT DESCRIBES THE PAIN... THE PATIENT DESCRIBES THE PAIN... PAIN THE PATIENT DESCRIBES THE PAIN... THE PATIENT DESCRIBES THE PAIN... THE PATIENT DESCRIBES THE PAIN... FALL RISK SCREENING: SCREENING :NO FALLS REPORTED IN THE LAST YEAR CURRENT MEDICATIONS TAKING AMITRIPTYLINE HCL 25 MG TABLET 1 TABLET AT BEDTIME ORALLY ONCE A DAY TAKING VITAMIN C 500 MG TABLET 1TAB ORALLY DAILY TAKING FUROSEMIDE 20 MG TABLET 2 TABLET ORALLY ONCE A DAY TAKING TRAZODONE 100 100MG TABLET ORAL BEFORE BEDTIME TAKING FINASTERIDE 5 MG TABLET 1 TABLET ORALLY ONCE A DAY TAKING ATORVASTATIN CALCIUM 10 MG TABLET 1 TABLET ORALLY ONCE A DAY TAKING VITAMIN D 2000 UNIT CAPSULE 1TAB ORALLY DAILY TAKING PANTOPRAZOLE SODIUM 40 MG TABLET DELAYED RELEASE 1 TABLET ORALLY TWICE A DAY TAKING GABAPENTIN 300 MG CAPSULE 1 CAPSULE ORALLY FOUR TIMES DAILY TAKING PHENAZOPYRIDINE HCL 95 MG TABLET 1 TABLETS AFTER MEALS ORALLY THREE TIMES A DAY TAKING ELMIRON 100 MG CAPSULE 1 CAPSULE ON AN EMPTY STOMACH ORALLY THREE TIMES A DAY TAKING METHOCARBAMOL 750 MG TABLET 1 TABLET ORALLY TWICE A DAY TAKING FLOMAX 0.4 MG CAPSULE 2 CAPSULES ORALLY ONCE DAILY TAKING DULOXETINE HCL 60 MG CAPSULE DELAYED RELEASE PARTICLES 1 CAPSULE ORALLY ONCE A DAY TAKING MOVANTIK 25 MG TABLET 1 TABLET IN THE MORNING ORALLY ONCE A DAY TAKING OXYCODONE HCL 10 MG TABLET 1 TABLET ORALLY EVERY 6 HRS PRN PAIN MDD=4 TAKING ROBAFEN 100 MG/5ML SYRUP 10 ML ORALLY EVERY 4 HRS TAKING MUCINEX 600 MG TABLET EXTENDED RELEASE 12 HOUR 1 TABLET NEEDED ORALLY EVERY 12 HRS NOT-TAKING VITAMIN B COMPLEX - TABLET 1 TAB ORALLY ONCE DAILY NOT-TAKING GUAIFENESIN 100 MG/5ML SYRUP 10 ML NEEDED ORALLY EVERY 4 HRS NOT-TAKING PYRIDIUM 100 MG TABLET 1 TABLET AFTER MEALS ORALLY THREE TIMES A DAY NEEDED FOR BURNING OR BLADDER PAIN NOT-TAKING PROSCAR 5 MG TABLET 1 TABLET ORALLY ONCE A DAY, NOTES: DUPLICATE NOT-TAKING BACTRIM DS 800-160 MG TABLET 1 TABLET 1 HOUR PRIOR TO YOUR CYSTOSCOPY ORALLY ONCE NOT-TAKING COLACE 100 MG CAPSULE 2 CAPSULE NEEDED ORALLY ONCE A DAY NOT-TAKING CLONIDINE HCL 0.1 MG TABLET 1 TABLET ORALLY Q 8 HRS PRN WITHDRAWAL SYMPTOMS NOT-TAKING QUETIAPINE FUMARATE 50 MG TABLETS 2 TABLET AT BEDTIME ORALLY ONCE A DAY MEDICATION LIST REVIEWED AND RECONCILED WITH THE PATIENT PAST MEDICAL HISTORY ARTHRITIS GERD FIBROMYALGIA EDEMA TENDON SEPARATION RIGHT SHOULDER ALLERGIES N.K.D.A. SURGICAL HISTORY HIP REPLACEMENT 1996 MEDIAN NERVE SURGERY 2008 CYSTOSCOPY/HYDRODISTENSION 06/2011 REVISION OF LEFT HIP ARTHROPLASTY 04/2016 CYSTOSCOPY 09/03/2018 FAMILY HISTORY NO FAMILY HISTORY DOCUMENTED. SOCIAL HISTORY GENERAL: TOBACCO USE ARE YOU A:FORMER SMOKER HOW LONG HAS IT BEEN SINCE YOU LAST SMOKED?> 10 YEARS EDUCATION LEVEL OF EDUCATION:COLLEGE LANGUAGE LANGUAGES SPOKEN:SCOTTISH DOMESTIC VIOLENCE DO YOU FEEL SAFE IN YOUR ENVIRONMENT?YES NEW PATIENT PAIN DIARY TODAY'S VISIT NOTES, FROM 0-10, WHAT LEVEL IS YOUR PAIN TODAY? 0. RECREATIONAL DRUG USE DRUG USE?NO LEARNING BARRIERS / SPECIAL NEEDS CHANGE FROM LAST VISIT?NO BARRIERS TO LEARNING?NO HEARING IMPAIRED?NO VISION IMPAIRED?YES :CORRECTIVE LENSES COGNITIVELY IMPAIRED?NO READINESS TO LEARN?YES LEARNING PREFERENCES?NO LEARNING CAPABILITIES PRESENT?YES EMOTIONAL BARRIERS?NO SPECIAL DEVICES?NO PLASTIC HOSPITAL PRODUCTS ASSEMBLER NEEDED?NO PAIN CLINIC PFS, CLERGY, PUBLIC HEALTH REFERRALS PFS REFERRAL NEEDED?NO CLERGY REFERRAL NEEDED?NO PUBLIC HEALTH REFERRAL NEEDED?NO WAS THE PROVIDER NOTIFIED OF ANY PERTINENT INFO?YES HAS THE PATIENT BEEN EDUCATED REGARDING HIS/HER PLAN OF CARE?YES HAS THE PATIENT BEEN EDUCATED REGARDING PAIN, THE RISK FOR PAIN, THE IMPORTANCE OF EFFECTIVE PAIN MANAGEMENT, AND THE PAIN ASSESSMENT PROCESS?YES CAFFEINE CAFFEINE USE?YES HOW OFTEN AND HOW MUCH? 1 SODA PER DAY ADVANCE DIRECTIVE ADVANCE DIRECTIVE DISCUSSED WITH PATIENT:YES HCP CHRYSTAL DORMAN [phone] MANDAEISM [id number] NONE NO BUDDHISM BELIEFS THAT WOULD IMPACT HEALTH CARE. ALCOHOL SCREENING DID YOU HAVE A DRINK CONTAINING ALCOHOL IN THE PAST YEAR?NO POINTS0 INTERPRETATIONNEGATIVE SEXUAL HX HAD SEX IN THE LAST 12 MONTHS (VAGINAL, ORAL, OR ANAL)?NO HAVE YOU EVER HAD AN STD?NO REVIEWED WITH PT 09/22/18 1155 LASREVIEWED WITH PT 12/31/18 1140 LAS. HOSPITALIZATION/MAJOR DIAGNOSTIC PROCEDURE SURGICAL RELATED REVIEW OF SYSTEMS REVIEWED BY: PROVIDER: NURIA GROSS . CONSTITUTIONAL: ANY CHANGE IN YOUR MEDICAL CONDITION? NO . CHILLS NO . FEVER NO . INFECTION: DO YOU HAVE NEW INFECTIONS? NO . DO YOU HAVE HISTORY OF MRSA? NO . MUSCULOSKELETAL: ANY NEW PATTERNS OF PAIN OR NUMBNESS? NO . GASTROENTEROLOGY: ANY NEW CHANGE IN BOWEL CONTROL? NO . GENITOURINARY: ANY NEW CHANGE IN BLADDER CONTROL? NO . IS THERE A CHANCE YOU COULD BE ? NO . HEMATOLOGY/LYMPH: DO YOU TAKE ANY BLOOD THINNERS? (FOR EXAMPLE- COUMADIN, PLAVIX, AGGRENOX, PLATEL, PRADAXA, OR XARELTO) NO . WHEN WAS YOUR LAST DOSE? DATE: TIME: . NEUROLOGY: HAVE YOU FALLEN IN THE PAST 12 MONTHS? YES PT REPORTS THAT A COUPLE OF WEEKS AGO, HE TRIPPED OVER A DOORWAY THRESHOLD, FELL BACKWARDS ONTO BOTTOM, STATES IT HURT A BIT, BUT DENIES INJURIES. NO ED VISIT, NO XRAYS. . ANY NEW EXTREMITY NUMBNESS OR WEAKNESS? NO . CARDIOLOGY: DO YOU HAVE A PACEMAKER OR DEFIBRILLATOR? NO . RESPIRATORY: HAVE YOU BEEN SICK IN THE PAST WEEK? NO . FEVER NO . FLU LIKE SYMPTOMS? NO . COUGH NO . INTEGUMENTARY: DO YOU HAVE ANY RASHES OR OPEN SORES? NO . ALLERGIC/IMMUNO: ARE YOU ALLERGIC TO IV DYE? NO . ANY NEW ALLERGIES? NO . PSYCHIATRIC: DO YOU HAVE THOUGHTS OF HURTING YOURSELF OR SOMEONE ELSE? NO . ARE YOU ABUSED, NEGLECTED, OR IN AN UNSAFE ENVIRONMENT? NO . ENDOCRINOLOGY: ARE YOU DIABETIC? NO . OTHER: DO YOU NEED ANY PRESCRIPTIONS? NO . IF YES, PLEASE LIST: ____ . ANY NEW PROBLEMS WITH YOUR MEDICATIONS? NO . WHEN DID YOU LAST EAT? ____ . WHEN DID YOU LAST DRINK? ____ . WHAT DID YOU LAST DRINK? ____ . NAME OF PERSON DRIVING YOU HOME? ____ . DO YOU HAVE ANY OTHER QUESTIONS OR CONCERNS NO . VITAL SIGNS WT 203.4 LBS, HT 60 IN, BMI 39.72 INDEX, BP 121/63 MM HG, HR 67 /MIN, RR 18 /MIN, TEMP 98.2 F, OXYGEN SAT % 95, SAFE IN ENV? (Y/N) YES, NA INITIALS MP 1129, REVIEWED BY: YOBANY. EXAMINATION GENERAL EXAMINATION: GENERAL APPEARANCE:AWAKE,ALERT ,PLEAASANT . PSYCHAFFECT NORMAL . LUNGS:LUNG HOLMAN ARE CLEAR TO AUSCULTATION BILATERALLY. GOOD MOVEMENT OF AIR . HEART:S1, S2 IN A REGULAR RATE AND RHYTHM. NO SIGNIFICANT MURMURS, RUBS OR GALLOPS NOTED . 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 BRINGS IN MEDICATIONS WHICH IS APPROPRIATE FOR WHAT WAS DISPENSED. RECENT URINE TOXICOLOGY REVIEWED. NO UNAUTHORIZED MEDICATIONS. NO ILLICIT SUBSTANCES AND PRESCRIBED MEDICATIONS WERE PRESENT. , UTOX TODAY, [facility] NARCOTIC AGREEMENT WAS UPDATED REVIEWED AND SIGNED TODAY BY THE PATIENT. SEE ATTACHED DOCUMENT FOR FULL DETAILS; SPECIFIC ISSUES WERE REVIEWED: 1) KEEP PAIN MEDS IN THEIR ORIGINAL BOTTLES AND ANY WEEKLY PLANNERS ARE TO BE BROUGHT TO THE PAIN CENTER AT EVERY VISIT. 2) THE PATIENT IS NOT TO INCREASE DOSING OR TIMING OF THEIR PAIN MEDICATION WITHOUT SPECIFIC DIRECTION OF THEIR PAIN CENTERPROVIDER (NOT ER OR OTHER PROVIDERS). 3) ALL PAIN MEDS ARE TO BE KEPT SECURED, IN A LOCKED BOX. 4) NO PAIN MEDS ARE TO BE SHARED WITH ANY OTHER PERSON FOR ANY REASON. 5) NO PAIN MEDS MAY BE TAKEN FROM ANY FRIENDS OR RELATIVES FOR ANY REASON 6) NO MEDS OR SUBSTANCES WHICH ARE NOT LEGAL ARE TO BE USED- NO MARIJUANA, NO COCAINE, AMPHETAMINES, HEROIN, OR OTHERS ARE EVER TO BE USED. 7)URINE TESTING IS DONE TO ACCOUNT FOR MEDS AND SUBSTANCES BEING TAKEN AND WILL BE DONE RANDOMLY., RISKS AND BENEFITS OF NARCOTIC/OPIOD MEDICATIONS WERE REVIEWED WITH PATIENT - THIS INCLUDES BUT IS NOT LIMITED TO RISK OF DEPENDANCE/DEVELOPMENT OF ADDICTION, MOOD DISTURBANCE AND DEPRESSION, OSTEOPOROSIS, HORMONAL AND LABIDAL CHANGES, RESPIRATORY DEPRESSION AND . PATIENT IS ADVISED NOT TO DRIVE OR DRINK ALCOHOL WHILE ON THESE MEDICATIONS. PROCEDURE CODES FA211 ESTABILISHED PATIENT [facility] FACILITY CHARGE DISPOSITION & COMMUNICATION FOLLOW UP 3 MONTHS (REASON: MED MGMNT) ELECTRONICALLY SIGNED BY RENATO CARBONE ON 01/19/2019 AT 09:48 AM EDT DISCLAIMER : THIS IS A VISIT SUMMARY EXTRACTED FROM THE [email or web address] CHART. IT IS NOT A COPY OF THE [employer] PROGRESS NOTE. CHARBEL
== END ==
LOC: M PAIN 11:00
PROVIDERS: ATTEND Nurse Practitioner Family
DX: N30.10 Interstitial cystitis (chronic) without hematuria (principal); G89.29 Other chronic pain; K21.9 Gastro-esophageal reflux disease without esophagitis; M79.7 Fibromyalgia; M19.90 Unspecified osteoarthritis, unspecified site; Z79.891 Long term (current) use of opiate analgesic; Z79.899 Other long term (current) drug therapy; Z96.649 Presence of unspecified artificial hip joint; Z87.891 Personal history of nicotine dependence

== ENCOUNTER → 2019-05-04 | Outpatient (CLI) | payer MEDICARE ==
[~2019-05-04] MED LIST changes: -DULO1CAP3 PO; +DULO1CAP6 PO; +MM S100C PO; -STOO100C PO; -TRAZ-160 PO; +TRAZ-252 PO
--- NOTE | 2019-05-18 00:24 | ECWPNPC ---
PATIENT NAME: NBA DORMAN : 1945 GENDER: MALE VISIT DATE: 05/04/2019 DISCHARGE DATE: 05/04/19 1218 VISIT LOCKED DATE TIME: PHYSICIAN: NURIA FELIX RESOURCE: NURIA FELIX REASON FOR APPOINTMENT 1. MED MNGMNT HISTORY OF PRESENT ILLNESS HISTORY OF PRESENT ILLNESS: HERE FOR ROUTINE F/U AND MEDICINE MANAGEMENT FOR CHRONIC PELVIC PAIN/GROIN PAIN.DESCRIBES PAIN INTERMITTENT,SHARP AND STABBING PAIN.RATING PAIN VAS 5/10.HISTORY OF CHRONIC INTERSTITIAL CYSTITIS.CURRENTLY USING OXYCODONE 10MG Q6H PRN FOR PAIN.FINDS MEDICATION SOMEWHAT EFFECTIVE.DENIES SIDE EFFECTS. PAIN THE PATIENT DESCRIBES THE PAIN... THE PATIENT DESCRIBES THE PAIN... THE PATIENT DESCRIBES THE PAIN... THE PATIENT DESCRIBES THE PAIN... PAIN THE PATIENT DESCRIBES THE PAIN... THE PATIENT DESCRIBES THE PAIN... THE PATIENT DESCRIBES THE PAIN... THE PATIENT DESCRIBES THE PAIN... FALL RISK SCREENING: SCREENING :NO FALLS REPORTED IN THE LAST YEAR CURRENT MEDICATIONS TAKING AMITRIPTYLINE HCL 25 MG TABLET 1 TABLET AT BEDTIME ORALLY ONCE A DAY TAKING VITAMIN C 500 MG TABLET 1TAB ORALLY DAILY TAKING FUROSEMIDE 20 MG TABLET 2 TABLET ORALLY ONCE A DAY TAKING TRAZODONE 100 100MG TABLET ORAL BEFORE BEDTIME TAKING FINASTERIDE 5 MG TABLET 1 TABLET ORALLY ONCE A DAY TAKING ATORVASTATIN CALCIUM 10 MG TABLET 1 TABLET ORALLY ONCE A DAY TAKING VITAMIN D 2000 UNIT CAPSULE 1TAB ORALLY DAILY TAKING PANTOPRAZOLE SODIUM 40 MG TABLET DELAYED RELEASE 1 TABLET ORALLY TWICE A DAY TAKING PHENAZOPYRIDINE HCL 95 MG TABLET 1 TABLETS AFTER MEALS ORALLY THREE TIMES A DAY TAKING FLOMAX 0.4 MG CAPSULE 2 CAPSULES ORALLY ONCE DAILY TAKING ROBAFEN 100 MG/5ML SYRUP 10 ML ORALLY EVERY 4 HRS TAKING GABAPENTIN 300 MG CAPSULE 1 CAPSULE ORALLY FOUR TIMES DAILY TAKING METHOCARBAMOL 750 MG TABLET 1 TABLET ORALLY NEEDED FOR SPASMS AND PAIN TWICE A DAY MDD2 TAKING ELMIRON 100 MG CAPSULE 1 CAPSULE ON AN EMPTY STOMACH ORALLY THREE TIMES A DAY TAKING OXYCODONE HCL 10 MG TABLET 1 TABLET ORALLY EVERY 6 HRS PRN PAIN MDD=4 TAKING DULOXETINE HCL 60 MG CAPSULE DELAYED RELEASE PARTICLES 1 CAPSULE ORALLY ONCE A DAY TAKING MOVANTIK 25 MG TABLET 1 TABLET IN THE MORNING ORALLY ONCE A DAY NOT-TAKING VITAMIN B COMPLEX - TABLET 1 TAB ORALLY ONCE DAILY NOT-TAKING GUAIFENESIN 100 MG/5ML SYRUP 10 ML NEEDED ORALLY EVERY 4 HRS NOT-TAKING PYRIDIUM 100 MG TABLET 1 TABLET AFTER MEALS ORALLY THREE TIMES A DAY NEEDED FOR BURNING OR BLADDER PAIN NOT-TAKING PROSCAR 5 MG TABLET 1 TABLET ORALLY ONCE A DAY, NOTES: DUPLICATE NOT-TAKING BACTRIM DS 800-160 MG TABLET 1 TABLET 1 HOUR PRIOR TO YOUR CYSTOSCOPY ORALLY ONCE NOT-TAKING COLACE 100 MG CAPSULE 2 CAPSULE NEEDED ORALLY ONCE A DAY NOT-TAKING CLONIDINE HCL 0.1 MG TABLET 1 TABLET ORALLY Q 8 HRS PRN WITHDRAWAL SYMPTOMS NOT-TAKING QUETIAPINE FUMARATE 50 MG TABLETS 2 TABLET AT BEDTIME ORALLY ONCE A DAY DISCONTINUED MUCINEX 600 MG TABLET EXTENDED RELEASE 12 HOUR 1 TABLET NEEDED ORALLY EVERY 12 HRS MEDICATION LIST REVIEWED AND RECONCILED WITH THE PATIENT PAST MEDICAL HISTORY ARTHRITIS GERD FIBROMYALGIA EDEMA TENDON SEPARATION RIGHT SHOULDER ALLERGIES N.K.D.A. SURGICAL HISTORY HIP REPLACEMENT 1996 MEDIAN NERVE SURGERY 2008 CYSTOSCOPY/HYDRODISTENSION 06/2011 REVISION OF LEFT HIP ARTHROPLASTY 04/2016 CYSTOSCOPY 09/03/2018 FAMILY HISTORY NO FAMILY HISTORY DOCUMENTED. SOCIAL HISTORY GENERAL: TOBACCO USE ARE YOU A:FORMER SMOKER HOW LONG HAS IT BEEN SINCE YOU LAST SMOKED?> 10 YEARS EDUCATION LEVEL OF EDUCATION:COLLEGE DIET: REGULAR. LANGUAGE LANGUAGES SPOKEN:[place]OS[place] DOMESTIC VIOLENCE DO YOU FEEL SAFE IN YOUR ENVIRONMENT?YES NEW PATIENT PAIN DIARY TODAY'S VISIT NOTES, FROM 0-10, WHAT LEVEL IS YOUR PAIN TODAY? 0. RECREATIONAL DRUG USE DRUG USE?NO EXERCISE: NO REGULAR EXERCISE. LEARNING BARRIERS / SPECIAL NEEDS CHANGE FROM LAST VISIT?NO BARRIERS TO LEARNING?NO HEARING IMPAIRED?NO VISION IMPAIRED?YES COGNITIVELY IMPAIRED?NO :CORRECTIVE LENSES READINESS TO LEARN?YES LEARNING PREFERENCES?NO LEARNING CAPABILITIES PRESENT?YES EMOTIONAL BARRIERS?NO SPECIAL DEVICES?NO COIN PURSE ASSEMBLER NEEDED?NO PAIN CLINIC PFS, CLERGY, PUBLIC HEALTH REFERRALS PFS REFERRAL NEEDED?NO CLERGY REFERRAL NEEDED?NO PUBLIC HEALTH REFERRAL NEEDED?NO WAS THE PROVIDER NOTIFIED OF ANY PERTINENT INFO?YES HAS THE PATIENT BEEN EDUCATED REGARDING HIS/HER PLAN OF CARE?YES HAS THE PATIENT BEEN EDUCATED REGARDING PAIN, THE RISK FOR PAIN, THE IMPORTANCE OF EFFECTIVE PAIN MANAGEMENT, AND THE PAIN ASSESSMENT PROCESS?YES LATEX QUESTIONNAIRE LATEX ALLERGY : HAVE YOU EVER DEVELOPED ANY TYPE OF REACTION AFTER HANDLING LATEX PRODUCTS SUCH RUBBER GLOVES, CONDOMS, DIAPHRAGMS, BALLOONS, SOCKS, OR UNDERWEAR?NO LATEX ALLERGY : HAVE YOU EVER DEVELOPED ANY TYPE OF REACTION DURING OR AFTER DENTAL APPOINTMENT, VAGINAL/RECTAL EXAMINATION, SURGICAL PROCEDURE, OR ANY OTHER EXPOSURE?NO DATE ASKED : 03/12/2019 LATEX RISK : HAVE YOU EVER HAD ANY DIFFICULTY BREATHING OR HIVES AFTER EATING OR HANDLING ANY FRUITS, OR VEGETABLES; SUCH KIWI, BANANAS, STONE FRUITS, OR CHESTNUTSNO LATEX RISK : DO YOU HAVE A PREVIOUS PERSONAL HISTORY OF MORE THAN NINE SURGERIES, SPINA BIFIDA, OR REPEATED CATHERIZATIONS? NO LATEX RISK : ARE YOU FREQUENTLY EXPOSED TO LATEX PRODUCTS IN YOUR OCCUPATION?NO CAFFEINE CAFFEINE USE?YES HOW OFTEN AND HOW MUCH? 1 SODA PER DAY ADVANCE DIRECTIVE ADVANCE DIRECTIVE DISCUSSED WITH PATIENT:YES HCP CHRYSTAL DORMAN [phone] CHRISTIAN [id number] NONE NO DENOMINATIONAL BELIEFS THAT WOULD IMPACT HEALTH CARE. MARITAL STATUS: . ALCOHOL SCREENING DID YOU HAVE A DRINK CONTAINING ALCOHOL IN THE PAST YEAR?NO POINTS0 INTERPRETATIONNEGATIVE SEXUAL HX HAD SEX IN THE LAST 12 MONTHS (VAGINAL, ORAL, OR ANAL)?NO HAVE YOU EVER HAD AN STD?NO REVIEWED WITH PT 09/22/18 1155 LASREVIEWED WITH PT 12/31/18 1140 LAS. HOSPITALIZATION/MAJOR DIAGNOSTIC PROCEDURE SURGICAL RELATED REVIEW OF SYSTEMS REVIEWED BY: PROVIDER: NURIA GROSS . CONSTITUTIONAL: ANY CHANGE IN YOUR MEDICAL CONDITION? NO . CHILLS NO . FEVER NO . INFECTION: DO YOU HAVE NEW INFECTIONS? NO . DO YOU HAVE HISTORY OF MRSA? NO . MUSCULOSKELETAL: ANY NEW PATTERNS OF PAIN OR NUMBNESS? NO . GASTROENTEROLOGY: ANY NEW CHANGE IN BOWEL CONTROL? NO . GENITOURINARY: ANY NEW CHANGE IN BLADDER CONTROL? NO . IS THERE A CHANCE YOU COULD BE ? NO . HEMATOLOGY/LYMPH: DO YOU TAKE ANY BLOOD THINNERS? (FOR EXAMPLE- COUMADIN, PLAVIX, AGGRENOX, PLATEL, PRADAXA, OR XARELTO) NO . WHEN WAS YOUR LAST DOSE? DATE: TIME: . NEUROLOGY: HAVE YOU FALLEN IN THE PAST 12 MONTHS? NO . ANY NEW EXTREMITY NUMBNESS OR WEAKNESS? NO . CARDIOLOGY: DO YOU HAVE A PACEMAKER OR DEFIBRILLATOR? NO . RESPIRATORY: HAVE YOU BEEN SICK IN THE PAST WEEK? NO . FEVER NO . FLU LIKE SYMPTOMS? NO . COUGH NO . INTEGUMENTARY: DO YOU HAVE ANY RASHES OR OPEN SORES? NO . ALLERGIC/IMMUNO: ARE YOU ALLERGIC TO IV DYE? NO . ANY NEW ALLERGIES? NO . PSYCHIATRIC: DO YOU HAVE THOUGHTS OF HURTING YOURSELF OR SOMEONE ELSE? NO . ARE YOU ABUSED, NEGLECTED, OR IN AN UNSAFE ENVIRONMENT? NO . ENDOCRINOLOGY: ARE YOU DIABETIC? NO . OTHER: DO YOU NEED ANY PRESCRIPTIONS? YES, JESSENIA WAS CALLED IN THE SCRIPT LINE YESTERDAY . IF YES, PLEASE LIST: ____ . ANY NEW PROBLEMS WITH YOUR MEDICATIONS? NO . WHEN DID YOU LAST EAT? ____ . WHEN DID YOU LAST DRINK? ____ . WHAT DID YOU LAST DRINK? ____ . NAME OF PERSON DRIVING YOU HOME? ____ . DO YOU HAVE ANY OTHER QUESTIONS OR CONCERNS NO . VITAL SIGNS WT 198 LBS, HT 60 IN, BMI 38.67 INDEX, BP 153/65 MM HG, HR 64 /MIN, RR 18 /MIN, TEMP 94 F, OXYGEN SAT % 94%, NA INITIALS SC 11:41, REVIEWED BY: EM. EXAMINATION GENERAL EXAMINATION: GENERALAWAKE,ALERT ,PLEAASANT . PSYCHAFFECT NORMAL . LUNGS:LUNG HOLMAN ARE CLEAR TO AUSCULTATION BILATERALLY. GOOD MOVEMENT OF AIR . HEART:S1, S2 IN A REGULAR RATE AND RHYTHM. NO SIGNIFICANT MURMURS, RUBS OR GALLOPS NOTED . ASSESSMENTS INTERSTITIAL CYSTITIS - N30.10 (PRIMARY) TREATMENT INTERSTITIAL CYSTITIS REFILL OXYCODONE HCL TABLET, 10 MG, 1 TABLET, ORALLY, EVERY 6 HRS PRN PAIN MDD=4, 30 DAY(S), 120, REFILLS 0 REFILL MOVANTIK TABLET, 25 MG, 1 TABLET IN THE MORNING, ORALLY, ONCE A DAY, 30 DAYS, 30 TABLET, REFILLS 5 CONTINUE METHOCARBAMOL TABLET, 750 MG, 1 TABLET, ORALLY NEEDED FOR SPASMS AND PAIN, TWICE A DAY MDD2 CONTINUE DULOXETINE HCL CAPSULE DELAYED RELEASE PARTICLES, 60 MG, 1 CAPSULE, ORALLY, ONCE A DAY, 30 DAY(S), 30, REFILLS 5 NOTES: ISTOP REGISTRY REVIEWED AND DEMONSTRATES COMPLLIANCE. BRINGS IN MEDICATIONS WHICH IS APPROPRIATE FOR WHAT WAS DISPENSED. RECENT URINE TOXICOLOGY REVIEWED. NO UNAUTHORIZED MEDICATIONS. NO ILLICIT SUBSTANCES AND PRESCRIBED MEDICATIONS WERE PRESENT. , RISKS AND BENEFITS OF NARCOTIC/OPIOD MEDICATIONS WERE REVIEWED WITH PATIENT - THIS INCLUDES BUT IS NOT LIMITED TO RISK OF DEPENDANCE/DEVELOPMENT OF ADDICTION, MOOD DISTURBANCE AND DEPRESSION, OSTEOPOROSIS, HORMONAL AND LABIDAL CHANGES, RESPIRATORY DEPRESSION AND . PATIENT IS ADVISED NOT TO DRIVE OR DRINK ALCOHOL WHILE ON THESE MEDICATIONS. REFERRAL TO:OF [facility] [place] [facility] [employer] REASON:CHRONIC BLADDER PAIN ASSOCIATED W INTRSTITIAL CYSTITIS PROCEDURE CODES FA211 ESTABILISHED PATIENT [facility] CHARGE DISPOSITION & COMMUNICATION FOLLOW UP NO F/U NEEDED (REASON: [facility] REFERRAL) ELECTRONICALLY SIGNED BY RENATO CARBONE ON 05/17/2019 AT 08:56 AM EDT DISCLAIMER : THIS IS A VISIT SUMMARY EXTRACTED FROM THE [employer] CHART. IT IS NOT A COPY OF THE [employer] PROGRESS NOTE. CEDRICKD
== END ==
LOC: M PAIN 11:30
PROVIDERS: ATTEND Nurse Practitioner Family
DX: N30.10 Interstitial cystitis (chronic) without hematuria (principal); G89.29 Other chronic pain; M19.90 Unspecified osteoarthritis, unspecified site; K21.9 Gastro-esophageal reflux disease without esophagitis; M79.7 Fibromyalgia; Z96.649 Presence of unspecified artificial hip joint; Z87.891 Personal history of nicotine dependence; Z79.891 Long term (current) use of opiate analgesic; Z79.899 Other long term (current) drug therapy

== ENCOUNTER → 2020-01-25 | Outpatient (CLI) | payer MEDICARE ==
[~2020-01-25] MED LIST changes: +OXYC30TA PO; -OXYC30TA84 PO; +VITA-243 PO; -VITA500T PO
[2020-01-25 16:40] LABS: BLOOD UREA NITROGEN 10 MG/DL (7-18); CREATININE FOR GFR 0.94 MG/DL (0.70-1.30); GLOMERULAR FILTRATION RATE > 60.0 (>42)
== END ==
LOC: M LAB 15:35
PROVIDERS: ATTEND Ophthalmology
DX: H49.20 Sixth [abducent] nerve palsy, unspecified eye (principal)

== ENCOUNTER → 2020-01-26 | Outpatient (CLI) | payer MEDICARE ==
[~2020-01-26] MED LIST changes: +PROHANCE 279.3MG/ML 15ML VIAL As Ordered ONE; +PROHANCE 279.3MG/ML 5ML VIAL As Ordered ONE
--- NOTE | 2020-01-26 12:11 | REP ---
MRI brain and orbits: 01/26/2020. Indication: Sixth nerve palsy. Technique: Multiplanar short and long TR sequences of the brain and orbits were performed including post gadolinium imaging. Comparison: None. Findings: No areas of restricted diffusion are present. There are no areas of pathologic gadolinium enhancement. Diffuse cerebral volume loss is noted. There is no hydrocephalus or mass effect. There are multiple areas of elevated CT signal throughout the cerebral hemisphere white matter which is nonspecific but most consistent with chronic small vessel disease. There is no evidence of intracranial hemorrhage. The large intracranial flow voids are present. There are no abnormalities of the ocular or intramural anatomy. Diffuse chronic appearing periosteal mucosal thickening is present within the sinuses. The mastoid air cells are clear. Impression: Unremarkable ocular and intraorbital anatomy. No acute intracranial process. Volume loss and sequelae of chronic microangiopathic ischemic disease. Diffuse chronic appearing paranasal sinus mucosal disease. Electronically Signed by Shelton Emerson DO 01/26/2020 12:03 P
== END ==
LOC: M RAD 07:56
PROVIDERS: ATTEND Ophthalmology
DX: H49.20 Sixth [abducent] nerve palsy, unspecified eye (principal)
CPT/HCPCS: 70543; 70553; A9576

== ENCOUNTER → 2020-04-19 | Outpatient (CLI) | payer MEDICARE ==
[~2020-04-19] MED LIST changes: +PANT40TA29 PO; -PANT40TA3 PO; -PROHANCE 279.3MG/ML 15ML VIAL As Ordered ONE; -PROHANCE 279.3MG/ML 5ML VIAL As Ordered ONE
--- NOTE | 2020-04-19 16:13 | REPVR ---
PROCEDURE INFORMATION: Exam: US Duplex Left Lower Extremity Veins, Limited Exam date and time: 04/19/2020 3:55 PM Age: 74 years old Clinical indication: Pain; Leg, lower; Left; Additional info: Pain in left leg; R/O dvt TECHNIQUE: Imaging protocol: Real-time Duplex ultrasound of the Left Lower Extremity with 2-D byrne scale, color Doppler flow and spectral waveform analysis with image documentation. Limited exam focused on the left lower extremity veins. COMPARISON: US Duplex, Ext,LOWER veins,unilat 05/16/2016 1:09 PM FINDINGS: Left deep veins: Unremarkable. The common femoral, femoral and popliteal veins are patent without thrombus. Normal compressibility, augmentation response and Doppler waveforms. Left superficial veins: Unremarkable. Saphenofemoral junction is patent without thrombus. Soft tissues: Unremarkable. IMPRESSION: No sonographic evidence of deep vein thrombosis. Electronically signed by: Christos Ramirez On 04/19/2020 16:12:50 PM
== END ==
LOC: M RAD 15:15
PROVIDERS: ATTEND Family Medicine
DX: M79.605 Pain in left leg (principal); R60.9 Edema, unspecified

== ENCOUNTER 2021-03-23 16:34 | Emergency (ER) | payer MEDICARE ==
[~2021-03-23] VITALS: Ht 152.4 cm; Wt 85.5 kg
[~2021-03-23 16:34] MED LIST changes: +GABA-282 PO; -GABA-843 PO
[2021-03-23 16:35] VITALS: BP 136/61
== END 2021-03-23 19:10 | disposition left against medical advice (07) ==
LOC: M ED 18:48
DX: Z53.21 Procedure and treatment not carried out due to patient leaving prior to being seen by health care provider (principal)

== ENCOUNTER 2022-02-12 17:02 | Inpatient (IN) | payer MEDICARE ==
[~2022-02-12] VITALS: Ht 152.4 cm; Wt 87.5 kg
[2022-02-12] MEDS ORDERED: BOOSTRIX/ADACEL VACCINE (DIPHTH/PERTUSS/ACELL/TETANUS) 0.5ML SYR IM.IMMUN ONE (17:20)
[2022-02-12] MEDS ORDERED: DERMABOND TOPICAL SKIN ADHESIVE TOP ONE (17:40)
[2022-02-12] MEDS ORDERED: PERCOCET 5MG/325MG TAB PO ONE (18:10)
[2022-02-12] MEDS ORDERED: LIDOCAINE W/EPINEPHRINE 1% 20ML VIAL SC ONE (19:10)
[2022-02-12 21:32] LABS: BASO # 0.1 10^3/uL (0.0-0.2); BASO % 0.4 % (0.0-1.0); EOS # 0.1 10^3/uL (0.0-0.5); EOS % 0.8 % (0.0-3.0); HEMATOCRIT 45.2 % (42.0-52.0); HEMOGLOBIN 14.8 g/dl (13.5-17.5); LYMPH # 1.8 10^3/uL (1.5-5.0); LYMPH % 12.4 % (24.0-44.0); MEAN CORPUSCULAR HEMOGLOBIN 30.9 pg (27.0-33.0); MEAN CORPUSCULAR HGB CONC 32.7 g/dl (32.0-36.5); MEAN CORPUSCULAR VOLUME 94.4 fl (80.0-96.0); MONO # 0.8 10^3/uL (0.0-0.8); MONO % 5.8 % (2.0-8.0); NEUTROPHILS # 11.4 10^3/uL (1.5-8.5); NEUTROPHILS % 80.2 % (36.0-66.0); PLATELET COUNT, AUTOMATED 186 10^3/uL (150-450); RED BLOOD COUNT 4.79 10^6/uL (4.30-6.10); WHITE BLOOD COUNT 14.2 10^3/uL (4.0-10.0)
[2022-02-12 21:49] LABS: BLOOD UREA NITROGEN 8 MG/DL (7-18); CALCIUM LEVEL 8.5 MG/DL (8.8-10.2); CARBON DIOXIDE LEVEL 32 MEQ/L (21-32); CHLORIDE LEVEL 104 MEQ/L (98-107); CREATININE FOR GFR 0.82 MG/DL (0.70-1.30); GLOMERULAR FILTRATION RATE > 60.0 (>42); GLUCOSE, FASTING 90 MG/DL (70-100); POTASSIUM SERUM 3.9 MEQ/L (3.5-5.1); SODIUM LEVEL 141 MEQ/L (136-145)
[2022-02-12 22:00] LABS: RSV AMPLIFICATION NEGATIVE (NEGATIVE)
[2022-02-12] MEDS ORDERED: MORPHINE 2 MG/ML 1ML VIAL IV PRN (22:20)
[2022-02-12] MEDS ORDERED: MOM 30ML SUSPENSION UDC PO PRN (23:15)
[2022-02-12] MEDS ORDERED: ACETAMINOPHEN TAB 650MG DOSE (2X325MG) PO PRN (23:15)
[2022-02-13] MEDS: MORPHINE 4 MG/ML 1ML VIAL/SYRINGE IV PRN ×2 (00:56→04:04)
[2022-02-13] MEDS ORDERED: MELO15TA28 PO (01:43)
[2022-02-13] MEDS ORDERED: CVS100LI4 PO (01:43)
[2022-02-13] MEDS ORDERED: METH-1165 PO (01:43)
[2022-02-13] MEDS ORDERED: VITA100093 PO (01:43)
[2022-02-13] MEDS ORDERED: BUPR300T92 PO (01:43)
[2022-02-13] MEDS ORDERED: AMIT-253 PO (01:43)
[2022-02-13] MEDS ORDERED: HOME MED LIST COMPLETE! XX SCH (01:55)
[2022-02-13 07:08] LABS: HEMATOCRIT 44.3 % (42.0-52.0); HEMOGLOBIN 14.4 g/dl (13.5-17.5); MEAN CORPUSCULAR HEMOGLOBIN 30.9 pg (27.0-33.0); MEAN CORPUSCULAR HGB CONC 32.5 g/dl (32.0-36.5); MEAN CORPUSCULAR VOLUME 95.1 fl (80.0-96.0); PLATELET COUNT, AUTOMATED 175 10^3/uL (150-450); RED BLOOD COUNT 4.66 10^6/uL (4.30-6.10); WHITE BLOOD COUNT 13.3 10^3/uL (4.0-10.0)
[2022-02-13 07:32] LABS: BLOOD UREA NITROGEN 9 MG/DL (7-18); CALCIUM LEVEL 8.4 MG/DL (8.8-10.2); CARBON DIOXIDE LEVEL 31 MEQ/L (21-32); CHLORIDE LEVEL 103 MEQ/L (98-107); GLOMERULAR FILTRATION RATE > 60.0 (>42); GLUCOSE, FASTING 95 MG/DL (70-100); POTASSIUM SERUM 3.8 MEQ/L (3.5-5.1); SODIUM LEVEL 140 MEQ/L (136-145)
[2022-02-13] MEDS: DOCUSATE SODIUM 100MG CAPSULE PO SCH (14:00)
[2022-02-13] MEDS: ENOXAPARIN 40MG/0.4ML SYRINGE (J1650 PER 10MG) SC SCH (14:00)
[2022-02-13 17:15] LABS: APPEARANCE, URINE HAZY (CLEAR); BACTERIA, URINE AUTO NEGATIVE (NEGATIVE); BILIRUBIN, URINE AUTO 1+ (NEGATIVE); BLOOD, URINE BLOOD NEGATIVE (NEGATIVE); COLOR, URINE AMBER (YELLOW); GLUCOSE, URINE (UA) AUTO NEGATIVE (NEGATIVE); KETONE, URINE AUTO 1+ mg/dL (NEGATIVE); LEUKOCYTE ESTERASE, URINE AUTO 1+ (NEGATIVE); MUCUS, URINE SMALL (NEGATIVE); NITRITE, URINE AUTO NEGATIVE (NEGATIVE); PROTEIN, URINE AUTO 2+ mg/dL (NEGATIVE); RBC, URINE AUTO 4 /HPF (0-3); SPECIFIC GRAVITY URINE AUTO 1.025 (1.002-1.035); SQUAMOUS EPITHELIAL CELL UR AU 1 /HPF (0-6); WBC, URINE AUTO 5 /HPF (0-3)
[2022-02-13] MEDS ORDERED: TAMSULOSIN 0.4 MG CAP PO SCH (21:00)
[2022-02-13] MEDS ORDERED: AMITRIPTYLINE 10MG TABLET PO SCH (21:00)
[2022-02-13] MEDS ORDERED: traZODone 100 MG TAB PO SCH (21:00)
[2022-02-13 22:16] VITALS: BP 151/61
[2022-02-14] MEDS: DOCUSATE SODIUM 100MG CAPSULE PO SCH ×2 (01:42→08:45)
[2022-02-14] MEDS: GABAPENTIN 300 MG CAP PO SCH ×3 (01:57→13:26)
[2022-02-14] MEDS: methocarbamoL 750 MG TAB PO SCH ×2 (01:57→08:44)
[2022-02-14] MEDS ORDERED: cefTRIAXone SOD 1 GM in D5W MINI-BAG PLUS 50 ML IV SCH (05:00)
[2022-02-14] MEDS ORDERED: PHENAZOPYRIDINE 100 MG TAB PO ONE (05:00)
[2022-02-14 06:00] VITALS: BP 140/60
[2022-02-14 06:32] LABS: HEMATOCRIT 41.5 % (42.0-52.0); HEMOGLOBIN 13.7 g/dl (13.5-17.5); MEAN CORPUSCULAR HEMOGLOBIN 30.9 pg (27.0-33.0); MEAN CORPUSCULAR VOLUME 93.5 fl (80.0-96.0); PLATELET COUNT, AUTOMATED 173 10^3/uL (150-450); RED BLOOD COUNT 4.44 10^6/uL (4.30-6.10); WHITE BLOOD COUNT 13.3 10^3/uL (4.0-10.0)
[2022-02-14 06:59] LABS: ALBUMIN 3.2 GM/DL (3.2-5.2); ALT/SGPT 17 U/L (12-78); BILIRUBIN,TOTAL 0.8 MG/DL (0.2-1.0); BLOOD UREA NITROGEN 9 MG/DL (7-18); CALCIUM LEVEL 8.7 MG/DL (8.8-10.2); CARBON DIOXIDE LEVEL 27 MEQ/L (21-32); CHLORIDE LEVEL 108 MEQ/L (98-107); CREATININE FOR GFR 0.76 MG/DL (0.70-1.30); GLOMERULAR FILTRATION RATE > 60.0 (>42); GLUCOSE, FASTING 103 MG/DL (70-100); POTASSIUM SERUM 3.8 MEQ/L (3.5-5.1); SODIUM LEVEL 142 MEQ/L (136-145); TOTAL PROTEIN 5.9 GM/DL (6.4-8.2)
[2022-02-14] MEDS: ENOXAPARIN 40MG/0.4ML SYRINGE (J1650 PER 10MG) SC SCH (08:45)
[2022-02-14] MEDS ORDERED: DULoxetine 30MG CAPSULE (CYMBALTA) PO SCH (09:00)
[2022-02-14] MEDS ORDERED: PANTOPRAZOLE 40MG TAB (PROTONIX) PO SCH (09:00)
[2022-02-14] MEDS ORDERED: VITAMIN D 1,000 INTERNATIONAL UNITS TABLET PO SCH (09:00)
[2022-02-14] MEDS ORDERED: ATORVASTATIN 10 MG TAB PO SCH (09:00)
[2022-02-14] MEDS ORDERED: MELOXICAM (MOBIC) 7.5 MG TAB PO SCH (09:00)
[2022-02-14] MEDS ORDERED: FINASTERIDE 5MG TAB PO SCH (09:00)
[2022-02-14] MEDS ORDERED: buPROPion **XL** TABLET 150MG (WELLBUTRIN XL) PO SCH (09:00)
[2022-02-14] MEDS ORDERED: FUROSEMIDE 20 MG TAB PO SCH (09:00)
[2022-02-14] MEDS ORDERED: ASCORBIC ACID 500 MG TAB PO SCH (09:00)
[2022-02-14 10:33] LABS: APPEARANCE, URINE MANUAL CLEAR (CLEAR); COLOR, URINE MANUAL ORANGE (YELLOW); PH,URINE MAN 5.5 UNITS (5.0 - 7.0); SPECIFIC GRAVITY,URINE MANUAL 1.021 (1.002-1.035)
[2022-02-14 10:34] LABS: BILIRUBIN, URINE MANUAL OBSCURED (NEGATIVE); BLOOD URINE MANUAL OBSCURED (NEGATIVE); GLUCOSE, URINE (UA) MANUAL NEGATIVE (NEGATIVE); KETONE, URINE MANUAL 2+ mg/dL (NEGATIVE); LEUKOCYTE ESTERASE, URINE MAN OBSCURED (NEGATIVE); NITRITE, URINE MANUAL OBSCURED (NEGATIVE); PROTEIN, URINE MANUAL NEGATIVE (NEGATIVE); UROBILINOGEN, URINE MANUAL OBSCURED mg/dl (NORMAL)
[2022-02-14 10:48] LABS: RBC, URINE NONE SEEN /hpf (0-3)
[2022-02-14 10:49] LABS: AMORPHOUS SEDIMENT, URINE SMALL AMOUNT (NEGATIVE); BACTERIA, URINE SMALL AMOUNT; HYALINE CAST, URINE NONE SEEN /lpf (0-1); MUCUS, URINE MOD AMOUNT (NEGATIVE); SQUAMOUS EPITHELIAL CELL URINE SMALL AMOUNT /hpf (SMALL AMT)
[2022-02-14] MEDS ORDERED: BACITRACIN OINTMENT 30GM TUBE TOP SCH (11:45)
[2022-02-14] MEDS ORDERED: BACI50OI TOP (12:39)
[2022-02-14] MEDS ORDERED: CEFD300CAP PO (12:40)
[2022-02-14] MEDS ORDERED: CEFDINIR 300 MG CAP (OMNICEF) PO SCH (21:00)
== END 2022-02-14 14:12 | disposition home or self-care (01) | DRG 948 ==
LOC: M ED 17:02 → EDBD 17:02 → M ED INP 23:12 → ENRESERV 02-13 17:28 → M MSPAV 02-13 22:16
PROVIDERS: ADMIT Family Medicine; ATTEND Family Medicine
DX: G89.11 Acute pain due to trauma (principal); N39.0 Urinary tract infection, site not specified; M25.552 Pain in left hip; R33.9 Retention of urine, unspecified; N30.10 Interstitial cystitis (chronic) without hematuria; Z87.891 Personal history of nicotine dependence; Z96.642 Presence of left artificial hip joint; Z79.899 Other long term (current) drug therapy; Z88.8 Allergy status to other drugs, medicaments and biological substances; S51.012A Laceration without foreign body of left elbow, initial encounter; W18.09XA Striking against other object with subsequent fall, initial encounter; Y92.009 Unspecified place in unspecified non-institutional (private) residence as the place of occurrence of the external cause; Y93.89 Activity, other specified; Y99.8 Other external cause status

== ENCOUNTER → 2022-03-20 | Outpatient (REF) | payer MEDICARE ==
[~2022-03-20] MED LIST changes: +AMIT-253 PO; +BACI50OI TOP; +BUPR300T92 PO; +CEFD300CAP PO; +CVS100LI4 PO; +MELO15TA28 PO; +METH-1165 PO; +VITA100093 PO
[2022-03-20 17:28] LABS: BACTERIA, URINE AUTO NEGATIVE (NEGATIVE); MUCUS, URINE SMALL (NEGATIVE); RBC, URINE AUTO 1 /HPF (0-3); SQUAMOUS EPITHELIAL CELL UR AU 0 /HPF (0-6); WBC, URINE AUTO 4 /HPF (0-3)
== END ==
LOC: M SMT 16:34
PROVIDERS: ATTEND Specialist
DX: N30.10 Interstitial cystitis (chronic) without hematuria (principal)

== ENCOUNTER → 2022-05-02 | Outpatient (CLI) | payer MEDICARE | LOC: M WUC 14:06 | PROVIDERS: ATTEND Physician Assistant | DX: M25.512 Pain in left shoulder (principal) ==

== ENCOUNTER → 2022-11-04 | Outpatient (CLI) | payer MEDICARE ==
[2022-11-04 19:29] LABS: HEMATOCRIT 44.9 % (42.0-52.0); HEMOGLOBIN 14.3 g/dl (13.5-17.5); MEAN CORPUSCULAR HGB CONC 31.8 g/dl (32.0-36.5); MEAN CORPUSCULAR VOLUME 97.4 fl (80.0-96.0); PLATELET COUNT, AUTOMATED 198 10^3/uL (150-450); RED BLOOD COUNT 4.61 10^6/uL (4.30-6.10); WHITE BLOOD COUNT 9.6 10^3/uL (4.0-10.0)
[2022-11-04 20:05] LABS: PROSTATIC SPECIFIC AG MONITOR 0.68 NG/ML (< 4.00)
[2022-11-04 20:07] LABS: ALBUMIN 3.8 G/DL (3.2-5.2); ALKALINE PHOSPHATASE 77 U/L (46-116); ALT/SGPT 36 U/L (7.0-40); AST/SGOT 18 U/L (<34); BILIRUBIN,TOTAL 0.4 MG/DL (0.3-1.2); BLOOD UREA NITROGEN 13 MG/DL (9-23); CALCIUM LEVEL 8.9 MG/DL (8.3-10.6); CARBON DIOXIDE LEVEL 31 MMOL/L (20-31); CHLORIDE LEVEL 104 MMOL/L (98-107); CHOLESTEROL LEVEL 160 MG/DL (<200); CHOLESTEROL RISK RATIO 2.41 (<5); CREATININE FOR GFR 1.01 MG/DL (0.70-1.30); GLOMERULAR FILTRATION RATE > 60.0 (>42); GLUCOSE, FASTING 86 MG/DL (74-106); HDL CHOLESTEROL 66.3 MG/DL (>40); LDL CHOLESTEROL 50.7 MG/DL (<100); NON-HDL-C 93.7 MG/DL; POTASSIUM SERUM 4.2 MMOL/L (3.5-5.1); SODIUM LEVEL 140 MMOL/L (136-145); TOTAL PROTEIN 6.5 G/DL (5.7-8.2); TRIGLYCERIDES LEVEL 215 MG/DL (<150)
[2022-11-04 20:09] LABS: THYROID STIMULATING HORMONE 1.834 uIU/ML (0.55-4.78)
[2022-11-04 20:47] LABS: APPEARANCE, URINE HAZY (CLEAR); BACTERIA, URINE AUTO NEGATIVE (NEGATIVE); BILIRUBIN, URINE AUTO NEGATIVE (NEGATIVE); BLOOD, URINE BLOOD NEGATIVE (NEGATIVE); COLOR, URINE AMBER (YELLOW); GLUCOSE, URINE (UA) AUTO NEGATIVE (NEGATIVE); KETONE, URINE AUTO TRACE mg/dL (NEGATIVE); LEUKOCYTE ESTERASE, URINE AUTO NEGATIVE (NEGATIVE); MUCUS, URINE SMALL (NEGATIVE); NITRITE, URINE AUTO NEGATIVE (NEGATIVE); PROTEIN, URINE AUTO NEGATIVE (NEGATIVE); RBC, URINE AUTO 1 /HPF (0-3); SPECIFIC GRAVITY URINE AUTO 1.019 (1.002-1.035); SQUAMOUS EPITHELIAL CELL UR AU 0 /HPF (0-6); UROBILINOGEN, URINE AUTO 0.2 mg/dL (0.0-2.0); WBC, URINE AUTO 5 /HPF (0-3)
== END ==
LOC: M WUC 15:20
PROVIDERS: ATTEND Physician Assistant
DX: M25.512 Pain in left shoulder (principal); R73.01 Impaired fasting glucose; E78.5 Hyperlipidemia, unspecified; R35.1 Nocturia

== ENCOUNTER 2023-02-14 17:07 | Inpatient (IN) | payer MEDICARE ==
[~2023-02-14] VITALS: Ht 152.4 cm; Wt 73.0 kg
[~2023-02-14 17:07] MED LIST changes: +FINA-48 PO; -PROS5TAB PO
[2023-02-14 18:27] LABS: BASO # 0.1 10^3/uL (0.0-0.2); BASO % 0.4 % (0.0-1.0); EOS # 0.2 10^3/uL (0.0-0.5); EOS % 1.8 % (0.0-3.0); HEMATOCRIT 41.1 % (42.0-52.0); HEMOGLOBIN 13.2 g/dl (13.5-17.5); LYMPH # 1.7 10^3/uL (1.5-5.0); LYMPH % 15.1 % (24.0-44.0); MEAN CORPUSCULAR HEMOGLOBIN 30.5 pg (27.0-33.0); MEAN CORPUSCULAR HGB CONC 32.1 g/dl (32.0-36.5); MEAN CORPUSCULAR VOLUME 94.9 fl (80.0-96.0); MONO # 0.6 10^3/uL (0.0-0.8); MONO % 5.2 % (2.0-8.0); NEUTROPHILS # 8.9 10^3/uL (1.5-8.5); NEUTROPHILS % 77.1 % (36.0-66.0); PLATELET COUNT, AUTOMATED 194 10^3/uL (150-450); RED BLOOD COUNT 4.33 10^6/uL (4.30-6.10); WHITE BLOOD COUNT 11.5 10^3/uL (4.0-10.0)
[2023-02-14 18:43] LABS: CK-MB VALUE MASS 1.2 NG/ML (<3.6); ETHYL ALCOHOL (ETHANOL) < 0.003 % (0.000-0.010)
[2023-02-14 18:45] LABS: ALBUMIN 3.6 G/DL (3.2-5.2); ALKALINE PHOSPHATASE 70 U/L (46-116); ALT/SGPT 22 U/L (7.0-40); AST/SGOT 26 U/L (<34); BILIRUBIN,DIRECT 0.1 MG/DL (<0.4); BILIRUBIN,TOTAL 0.4 MG/DL (0.3-1.2); BLOOD UREA NITROGEN 12 MG/DL (9-23); CALCIUM LEVEL 8.1 MG/DL (8.3-10.6); CARBON DIOXIDE LEVEL 28 MMOL/L (20-31); CHLORIDE LEVEL 108 MMOL/L (98-107); CREATININE FOR GFR 1.03 MG/DL (0.70-1.30); GLOMERULAR FILTRATION RATE > 60.0 (>42); GLUCOSE, FASTING 82 MG/DL (74-106); POTASSIUM SERUM 4.1 MMOL/L (3.5-5.1); SODIUM LEVEL 139 MMOL/L (136-145); TOTAL PROTEIN 5.8 G/DL (5.7-8.2)
[2023-02-14 18:46] LABS: INR 0.96
[2023-02-14 18:47] LABS: PARTIAL THROMBOPLASTIN TIME 28.3 SECONDS (24.8-34.2); THYROID STIMULATING HORMONE 2.201 uIU/ML (0.55-4.78)
[2023-02-14 19:01] LABS: CPK CREATINE PHOSPHOKINASE 281 U/L (46-171); MB/CK RELATIVE INDEX 0.42 (< OR =4)
[2023-02-14 19:45] LABS: RSV AMPLIFICATION NEGATIVE (NEGATIVE)
[2023-02-14] MEDS ORDERED: MED REC IN PROGRESS XX SCH (19:55)
[2023-02-14] MEDS ORDERED: cefTRIAXone SOD 1 GM in D5W MINI-BAG PLUS 50 ML IV ONE (19:55)
[2023-02-14] MEDS ORDERED: THIAMINE 200MG 2ML VIAL IM ONE (20:05)
[2023-02-14 20:17] LABS: CK-MB VALUE MASS 1.2 NG/ML (<3.6)
[2023-02-14] MEDS ORDERED: AMIT25TA17 PO (20:18)
[2023-02-14] MEDS ORDERED: HOME MED LIST COMPLETE! XX SCH (20:20)
[2023-02-14 20:23] LABS: MB/CK RELATIVE INDEX 0.26 (< OR =4)
[2023-02-14] MEDS ORDERED: oxyBUTYnin 5 MG TAB PO ONE (21:35)
[2023-02-14] MEDS ORDERED: ALBUTEROL SULFATE 2.5MG/0.5ML INH NEB SOLN NEB PRN (21:35)
[2023-02-14] MEDS ORDERED: ALPRAZolam 0.25 MG TAB PO ONE (22:00)
[2023-02-14 22:16] LABS: PROCALCITONIN 0.07 ng/ml
[2023-02-14] MEDS: NS 1,000 ML IV SCH (23:00)
[2023-02-14] MEDS: TAMSULOSIN 0.4 MG CAP PO SCH (23:00)
[2023-02-14] MEDS: GABAPENTIN 300 MG CAP PO SCH (23:00)
[2023-02-14 23:35] VITALS: BP 138/66; TEMP 97.2; O2SAT 92
[2023-02-15] MEDS: IPRATROPIUM 0.5MG/ALBUTEROL 2.5MG INH SOL UD 3ML (DUONEB) NEB SCH ×4 (02:01→19:28)
[2023-02-15 04:00] VITALS: BP 143/76; TEMP 97.8; O2SAT 96
[2023-02-15 06:01] LABS: BLOOD UREA NITROGEN 11 MG/DL (9-23); CALCIUM LEVEL 8.6 MG/DL (8.3-10.6); CARBON DIOXIDE LEVEL 31 MMOL/L (20-31); CHLORIDE LEVEL 107 MMOL/L (98-107); CREATININE FOR GFR 0.94 MG/DL (0.70-1.30); GLOMERULAR FILTRATION RATE > 60.0 (>42); GLUCOSE, FASTING 80 MG/DL (74-106); POTASSIUM SERUM 3.9 MMOL/L (3.5-5.1); SODIUM LEVEL 142 MMOL/L (136-145)
[2023-02-15 06:02] LABS: CPK CREATINE PHOSPHOKINASE 1077 U/L (46-171)
[2023-02-15 07:34] VITALS: BP 139/61; TEMP 97.1; O2SAT 96
[2023-02-15] MEDS ORDERED: MIRALAX *UNIT DOSE* 17GM PACKET PO PRN (08:10)
[2023-02-15 08:31] LABS: BASO # 0.1 10^3/uL (0.0-0.2); BASO % 0.6 % (0.0-1.0); EOS # 0.2 10^3/uL (0.0-0.5); EOS % 2.3 % (0.0-3.0); HEMATOCRIT 39.5 % (42.0-52.0); HEMOGLOBIN 12.6 g/dl (13.5-17.5); LYMPH # 1.9 10^3/uL (1.5-5.0); LYMPH % 22.9 % (24.0-44.0); MEAN CORPUSCULAR HEMOGLOBIN 30.7 pg (27.0-33.0); MEAN CORPUSCULAR HGB CONC 31.9 g/dl (32.0-36.5); MEAN CORPUSCULAR VOLUME 96.1 fl (80.0-96.0); MONO # 0.6 10^3/uL (0.0-0.8); MONO % 6.8 % (2.0-8.0); NEUTROPHILS # 5.6 10^3/uL (1.5-8.5); NEUTROPHILS % 67.2 % (36.0-66.0); PLATELET COUNT, AUTOMATED 167 10^3/uL (150-450); RED BLOOD COUNT 4.11 10^6/uL (4.30-6.10); WHITE BLOOD COUNT 8.3 10^3/uL (4.0-10.0)
[2023-02-15] MEDS ORDERED: PANTOPRAZOLE 40MG TAB (PROTONIX) PO SCH (09:00)
[2023-02-15] MEDS ORDERED: FINASTERIDE 5MG TAB PO SCH (09:00)
[2023-02-15] MEDS ORDERED: ATORVASTATIN 10 MG TAB PO SCH (09:00)
[2023-02-15] MEDS ORDERED: DULoxetine 30MG CAPSULE (CYMBALTA) PO SCH (09:00)
[2023-02-15] MEDS ORDERED: FOLIC ACID 1MG TAB PO SCH (09:00)
[2023-02-15] MEDS ORDERED: buPROPion **XL** TABLET 150MG (WELLBUTRIN XL) PO SCH (09:00)
[2023-02-15] MEDS ORDERED: MULTIVITAMINS/MINERALS THERAP 1 TAB PO SCH (09:00)
[2023-02-15 09:04] LABS: ALBUMIN 3.1 G/DL (3.2-5.2); ALKALINE PHOSPHATASE 67 U/L (46-116); ALT/SGPT 22 U/L (7.0-40); AST/SGOT 26 U/L (<34); BILIRUBIN,TOTAL 0.6 MG/DL (0.3-1.2); BLOOD UREA NITROGEN 10 MG/DL (9-23); CALCIUM LEVEL 8.4 MG/DL (8.3-10.6); CARBON DIOXIDE LEVEL 28 MMOL/L (20-31); CHLORIDE LEVEL 108 MMOL/L (98-107); CK-MB VALUE MASS 2.6 NG/ML (<3.6); CPK CREATINE PHOSPHOKINASE 1079 U/L (46-171); CREATININE FOR GFR 0.85 MG/DL (0.70-1.30); GLOMERULAR FILTRATION RATE > 60.0 (>42); GLUCOSE, FASTING 77 MG/DL (74-106); MB/CK RELATIVE INDEX 0.24 (< OR =4); SODIUM LEVEL 141 MMOL/L (136-145); TOTAL PROTEIN 5.4 G/DL (5.7-8.2)
[2023-02-15] MEDS: THIAMINE 100 MG TAB PO SCH ×3 (10:58→21:10)
[2023-02-15] MEDS: LORazepam 2 MG TAB PO PRN ×3 (10:59→15:45)
[2023-02-15] MEDS: GABAPENTIN 300 MG CAP PO SCH ×5 (10:59→21:10)
[2023-02-15] MEDS: DOCUSATE SODIUM 100MG CAPSULE PO SCH ×3 (10:59→21:10)
[2023-02-15] MEDS: HEPARIN SOD (PORCINE) 5000UNITS/ML 1ML VIAL/SYRINGE SC SCH ×2 (11:00→21:11)
[2023-02-15 11:55] VITALS: BP 137/67; TEMP 97.3; O2SAT 92
[2023-02-15] MEDS: NS 1,000 ML IV SCH (13:54)
[2023-02-15] MEDS ORDERED: OXAZEPAM 10MG CAP PO SCH (14:35)
[2023-02-15] MEDS: OXAZEPAM 10MG CAP PO SCH ×2 (15:22→18:00)
[2023-02-15 15:40] VITALS: BP 139/63; TEMP 97.6; O2SAT 93
[2023-02-15 20:00] VITALS: BP 150/70; TEMP 97; O2SAT 97
[2023-02-15] MEDS ORDERED: cefTRIAXone SOD 1 GM in D5W MINI-BAG PLUS 50 ML IV SCH (20:00)
[2023-02-15] MEDS: TAMSULOSIN 0.4 MG CAP PO SCH ×2 (21:00→21:10)
[2023-02-15] MEDS: AMITRIPTYLINE 25MG TABLET PO SCH ×2 (21:00→21:10)
[2023-02-15] MEDS: SENNA 8.6 MG TAB (SENOKOT) PO SCH ×2 (21:00→21:10)
[2023-02-16] VITALS (38 sets, daily range): BP systolic 93–187; BP diastolic 58–121; TEMP 97–99.1; O2SAT 92–100
[2023-02-16] MEDS: OXAZEPAM 10MG CAP PO SCH ×2 (00:21→05:15)
[2023-02-16] MEDS: LORazepam 2 MG TAB PO PRN ×5 (00:36→06:48)
[2023-02-16] MEDS: IPRATROPIUM 0.5MG/ALBUTEROL 2.5MG INH SOL UD 3ML (DUONEB) NEB SCH ×4 (01:24→19:14)
[2023-02-16] MEDS: NS 1,000 ML IV SCH (04:06)
[2023-02-16 05:24] LABS: HEMATOCRIT 41.2 % (42.0-52.0); MEAN CORPUSCULAR HEMOGLOBIN 30.6 pg (27.0-33.0); MEAN CORPUSCULAR HGB CONC 31.6 g/dl (32.0-36.5); MEAN CORPUSCULAR VOLUME 96.9 fl (80.0-96.0); PLATELET COUNT, AUTOMATED 172 10^3/uL (150-450); RED BLOOD COUNT 4.25 10^6/uL (4.30-6.10); WHITE BLOOD COUNT 11.4 10^3/uL (4.0-10.0)
[2023-02-16 05:55] LABS: CK-MB VALUE MASS 3.4 NG/ML (<3.6)
[2023-02-16 05:57] LABS: ALBUMIN 3.3 G/DL (3.2-5.2); ALKALINE PHOSPHATASE 70 U/L (46-116); ALT/SGPT 20 U/L (7.0-40); AST/SGOT 37 U/L (<34); BILIRUBIN,TOTAL 0.5 MG/DL (0.3-1.2); BLOOD UREA NITROGEN 9 MG/DL (9-23); CALCIUM LEVEL 7.8 MG/DL (8.3-10.6); CARBON DIOXIDE LEVEL 30 MMOL/L (20-31); CHLORIDE LEVEL 106 MMOL/L (98-107); GLOMERULAR FILTRATION RATE > 60.0 (>42); GLUCOSE, FASTING 79 MG/DL (74-106); POTASSIUM SERUM 4.3 MMOL/L (3.5-5.1); SODIUM LEVEL 141 MMOL/L (136-145); TOTAL PROTEIN 5.6 G/DL (5.7-8.2)
[2023-02-16 05:58] LABS: CPK CREATINE PHOSPHOKINASE 1098 U/L (46-171)
[2023-02-16] MEDS ORDERED: LORazepam 2 MG/ML 1ML VIAL IV STA (06:25)
[2023-02-16] MEDS ORDERED: LR 1,000 ML IV SCH (07:50)
[2023-02-16] MEDS: HEPARIN SOD (PORCINE) 5000UNITS/ML 1ML VIAL/SYRINGE SC SCH ×2 (09:05→20:28)
[2023-02-16] MEDS: PANTOPRAZOLE 40MG VIAL IV SCH (09:05)
[2023-02-16] MEDS: LORazepam 2 MG/ML 1ML VIAL IV PRN ×3 (09:05→11:41)
[2023-02-16] MEDS: MULTIVITAMIN -ADULT INJECTION 10 ML, THIAMINE INJection 100 MG, FOLIC ACID 1 MG in NS 1... IV SCH (09:23)
[2023-02-16] MEDS ORDERED: LORazepam 2 MG/ML 1ML VIAL IM STA ×2 (10:39→11:36)
[2023-02-16] MEDS ORDERED: ALBUTEROL SULFATE 2.5MG/0.5ML INH NEB SOLN NEB PRN (10:55)
[2023-02-16 11:39] LABS: PHOSPHORUS LEVEL 3.4 MG/DL (2.4-5.1)
[2023-02-16] MEDS: dexmedeTOMidine 200 MCG in IV 1 EA IV SCH ×3 (13:36→21:48)
[2023-02-16] MEDS: LORazepam 2 MG/ML 1ML VIAL IV SCH ×2 (15:37→20:13)
[2023-02-16] MEDS ORDERED: hydrALAZINE 20MG/ML 1ML VIAL IV ONE (17:10)
[2023-02-16] MEDS: D5W/LR 1,000 ML IV SCH (19:54)
[2023-02-17] VITALS (31 sets, daily range): BP systolic 97–177; BP diastolic 56–84; TEMP 97.4–98.9; O2SAT 88–99
[2023-02-17] MEDS: LORazepam 2 MG/ML 1ML VIAL IV SCH ×7 (01:16→23:00)
[2023-02-17] MEDS: D5W/LR 1,000 ML IV SCH ×3 (01:28→23:42)
[2023-02-17] MEDS: IPRATROPIUM 0.5MG/ALBUTEROL 2.5MG INH SOL UD 3ML (DUONEB) NEB SCH ×4 (01:40→19:05)
[2023-02-17] MEDS: hydrALAZINE 20MG/ML 1ML VIAL IV PRN ×3 (03:37→21:39)
[2023-02-17 05:23] LABS: HEMATOCRIT 40.5 % (42.0-52.0); HEMOGLOBIN 13.1 g/dl (13.5-17.5); MEAN CORPUSCULAR HEMOGLOBIN 30.7 pg (27.0-33.0); MEAN CORPUSCULAR HGB CONC 32.3 g/dl (32.0-36.5); MEAN CORPUSCULAR VOLUME 94.8 fl (80.0-96.0); PLATELET COUNT, AUTOMATED 175 10^3/uL (150-450); RED BLOOD COUNT 4.27 10^6/uL (4.30-6.10); WHITE BLOOD COUNT 11.6 10^3/uL (4.0-10.0)
[2023-02-17 05:58] LABS: ALKALINE PHOSPHATASE 63 U/L (46-116); ALT/SGPT 11 U/L (7.0-40); AST/SGOT 43 U/L (<34); BILIRUBIN,TOTAL 0.5 MG/DL (0.3-1.2); BLOOD UREA NITROGEN 11 MG/DL (9-23); CALCIUM LEVEL 7.7 MG/DL (8.3-10.6); CARBON DIOXIDE LEVEL 30 MMOL/L (20-31); CHLORIDE LEVEL 108 MMOL/L (98-107); CPK CREATINE PHOSPHOKINASE 1274 U/L (46-171); CREATININE FOR GFR 0.76 MG/DL (0.70-1.30); GLOMERULAR FILTRATION RATE > 60.0 (>42); GLUCOSE, FASTING 109 MG/DL (74-106); POTASSIUM SERUM 4.1 MMOL/L (3.5-5.1); SODIUM LEVEL 143 MMOL/L (136-145); TOTAL PROTEIN 5.2 G/DL (5.7-8.2)
[2023-02-17] MEDS: PANTOPRAZOLE 40MG VIAL IV SCH (07:49)
[2023-02-17] MEDS: dexmedeTOMidine 200 MCG in IV 1 EA IV SCH ×4 (08:47→23:01)
[2023-02-17] MEDS: HEPARIN SOD (PORCINE) 5000UNITS/ML 1ML VIAL/SYRINGE SC SCH ×2 (09:00→20:14)
[2023-02-17] MEDS ORDERED: GLUCOSE 4GM CHEW TABLET PO PRN (10:25)
[2023-02-17] MEDS ORDERED: DEXTROSE 50% 50ML SYRINGE IV PRN (10:25)
[2023-02-17] MEDS ORDERED: GLUCAGON INJ 1MG VIAL SC PRN (10:25)
[2023-02-17] MEDS: MULTIVITAMIN -ADULT INJECTION 10 ML, THIAMINE INJection 100 MG, FOLIC ACID 1 MG in NS 1... IV SCH (10:56)
[2023-02-17] MEDS ORDERED: MIDAZOLAM 5MG/ML 1ML VIAL IV ONE (16:45)
[2023-02-18] VITALS (63 sets, daily range): BP systolic 112–231; BP diastolic 57–107; TEMP 97.5–98.7; O2SAT 91–100
[2023-02-18] MEDS ORDERED: HALOPERIDOL 5MG/ML 1ML VIAL IM STA ×2 (00:36→09:51)
[2023-02-18] MEDS: IPRATROPIUM 0.5MG/ALBUTEROL 2.5MG INH SOL UD 3ML (DUONEB) NEB SCH ×4 (00:53→19:14)
[2023-02-18] MEDS ORDERED: MORPHINE 2 MG/ML 1ML VIAL IV ONE (00:55)
[2023-02-18] MEDS: dexmedeTOMidine 200 MCG in IV 1 EA IV SCH ×3 (01:35→12:12)
[2023-02-18] MEDS: D5W/LR 1,000 ML IV SCH ×3 (04:00→22:21)
[2023-02-18] MEDS: LORazepam 2 MG/ML 1ML VIAL IV SCH ×3 (05:58→12:13)
[2023-02-18 06:50] LABS: HEMATOCRIT 37.6 % (42.0-52.0); HEMOGLOBIN 12.5 g/dl (13.5-17.5); MEAN CORPUSCULAR HEMOGLOBIN 31.1 pg (27.0-33.0); MEAN CORPUSCULAR HGB CONC 33.2 g/dl (32.0-36.5); MEAN CORPUSCULAR VOLUME 93.5 fl (80.0-96.0); PLATELET COUNT, AUTOMATED 155 10^3/uL (150-450); RED BLOOD COUNT 4.02 10^6/uL (4.30-6.10); WHITE BLOOD COUNT 11.1 10^3/uL (4.0-10.0)
[2023-02-18 07:02] LABS: CPK CREATINE PHOSPHOKINASE 918 U/L (46-171)
[2023-02-18 07:03] LABS: ALBUMIN 2.7 G/DL (3.2-5.2); ALKALINE PHOSPHATASE 59 U/L (46-116); ALT/SGPT 20 U/L (7.0-40); AST/SGOT 37 U/L (<34); BILIRUBIN,TOTAL 0.6 MG/DL (0.3-1.2); BLOOD UREA NITROGEN 10 MG/DL (9-23); CALCIUM LEVEL 7.6 MG/DL (8.3-10.6); CARBON DIOXIDE LEVEL 27 MMOL/L (20-31); CHLORIDE LEVEL 108 MMOL/L (98-107); CREATININE FOR GFR 0.63 MG/DL (0.70-1.30); GLOMERULAR FILTRATION RATE > 60.0 (>42); GLUCOSE, FASTING 166 MG/DL (74-106); MAGNESIUM LEVEL 1.8 MG/DL (1.8-2.4); PHOSPHORUS LEVEL 2.5 MG/DL (2.4-5.1); POTASSIUM SERUM 3.7 MMOL/L (3.5-5.1); SODIUM LEVEL 142 MMOL/L (136-145)
[2023-02-18] MEDS: PANTOPRAZOLE 40MG VIAL IV SCH (07:49)
[2023-02-18] MEDS ORDERED: IPRATROPIUM 0.5MG/ALBUTEROL 2.5MG INH SOL UD 3ML (DUONEB) NEB PRN (08:30)
[2023-02-18] MEDS ORDERED: FAMOTIDINE 20MG/2ML VIAL IVP SCH (09:00)
[2023-02-18] MEDS: EPINEPHrine INJ 1 MG/ML 1ML AMP IM STA ×2 (10:18→10:30)
[2023-02-18] MEDS ORDERED: RACEPINEPHrine 2.25% UD INHAL As Ordered ONE (10:19)
[2023-02-18] MEDS ORDERED: EPINEPHrine INJ 1 MG/ML 1ML AMP IM STA ×3 (10:19→14:11)
[2023-02-18] MEDS ORDERED: RACEPINEPHrine 2.25% UD INHAL INH ONE ×3 (10:20→14:15)
[2023-02-18] MEDS ORDERED: diphenhydrAMINE 50MG/ML VIAL IV STA (10:36)
[2023-02-18] MEDS: methylPREDNISolone 40MG 1ML VIAL IV SCH ×2 (10:40→22:20)
[2023-02-18 11:30] LABS: ABG BASE EXCESS 1.3 (-2.0-2.0); ABG HCO3 26.1 MMOL/L (22.0-26.0); ABG O2 SATURATION 99.3 % (95.0-99.0); ABG PARTIAL PRESSURE CO2 41.8 mmHg (35.0-45.0); ABG PARTIAL PRESSURE O2 242.9 mmHg (75.0-100.0); ABG STANDARD HCO3 25.7 MMOL/L. (22.0-26.0); ABG TOTAL CO2 27.4 MMOL/L (23.0-31.0); ABG pH (ARTERIAL) 7.413 UNITS (7.350-7.450)
[2023-02-18] MEDS: HEPARIN SOD (PORCINE) 5000UNITS/ML 1ML VIAL/SYRINGE SC SCH ×2 (11:44→21:13)
[2023-02-18] MEDS: MULTIVITAMIN -ADULT INJECTION 10 ML, THIAMINE INJection 100 MG, FOLIC ACID 1 MG in NS 1... IV SCH (12:12)
[2023-02-18] MEDS: hydrALAZINE 20MG/ML 1ML VIAL IV PRN (12:13)
[2023-02-18] MEDS: MAG SULF 1GM/100ML (MAG RUN) 1 GM in IV 1 EA IV SCH ×2 (12:14→13:00)
[2023-02-18] MEDS ORDERED: PROPOFOL 1,000 MG/100 ML VIAL As Ordered ONE (14:31)
[2023-02-18] MEDS ORDERED: FENTANYL DRIP LOCK BOX KEY 1 EACH XX PRN (14:35)
[2023-02-18 15:05] LABS: ABG BASE EXCESS -1.4 (-2.0-2.0); ABG HCO3 22.6 MMOL/L (22.0-26.0); ABG O2 SATURATION 95.8 % (95.0-99.0); ABG PARTIAL PRESSURE CO2 35.8 mmHg (35.0-45.0); ABG PARTIAL PRESSURE O2 80.4 mmHg (75.0-100.0); ABG STANDARD HCO3 23.3 MMOL/L. (22.0-26.0); ABG TOTAL CO2 23.7 MMOL/L (23.0-31.0); ABG pH (ARTERIAL) 7.418 UNITS (7.350-7.450)
[2023-02-18 15:24] LABS: HEMATOCRIT 37.4 % (42.0-52.0); HEMOGLOBIN 12.3 g/dl (13.5-17.5); MEAN CORPUSCULAR HGB CONC 32.9 g/dl (32.0-36.5); MEAN CORPUSCULAR VOLUME 94.2 fl (80.0-96.0); PLATELET COUNT, AUTOMATED 169 10^3/uL (150-450); RED BLOOD COUNT 3.97 10^6/uL (4.30-6.10); WHITE BLOOD COUNT 15.7 10^3/uL (4.0-10.0)
[2023-02-18] MEDS: propofoL 1,000 MG in IV 1 EA IV SCH ×2 (15:35→20:25)
[2023-02-18] MEDS ORDERED: ETOMIDATE INJ 20MG/10ML VIAL IV STA (15:36)
[2023-02-18] MEDS ORDERED: propofoL 200 MG/20 ML VIAL ONE (15:38)
[2023-02-18] MEDS ORDERED: ETOMIDATE INJ 20MG/10ML VIAL ONE (15:38)
[2023-02-18] MEDS ORDERED: ROCURONIUM BROMIDE 50MG/5ML VIAL ONE (15:38)
[2023-02-18] MEDS ORDERED: propofoL 200 MG/20 ML VIAL IV ONE (15:40)
[2023-02-18] MEDS ORDERED: ROCURONIUM BROMIDE 50MG/5ML VIAL IV SCH (15:40)
[2023-02-18 15:47] LABS: ALBUMIN 2.7 G/DL (3.2-5.2); ALKALINE PHOSPHATASE 56 U/L (46-116); ALT/SGPT 10 U/L (7.0-40); AST/SGOT 53 U/L (<34); BILIRUBIN,TOTAL 0.7 MG/DL (0.3-1.2); BLOOD UREA NITROGEN 9 MG/DL (9-23); CALCIUM LEVEL 7.2 MG/DL (8.3-10.6); CARBON DIOXIDE LEVEL 22 MMOL/L (20-31); CHLORIDE LEVEL 110 MMOL/L (98-107); CREATININE FOR GFR 0.58 MG/DL (0.70-1.30); GLOMERULAR FILTRATION RATE > 60.0 (>42); GLUCOSE, FASTING 176 MG/DL (74-106); MAGNESIUM LEVEL 2.3 MG/DL (1.8-2.4); PHOSPHORUS LEVEL 2.1 MG/DL (2.4-5.1); POTASSIUM SERUM 3.6 MMOL/L (3.5-5.1); SODIUM LEVEL 141 MMOL/L (136-145); TOTAL PROTEIN 4.8 G/DL (5.7-8.2)
[2023-02-18] MEDS: KCL 10MEQ/100ML SWI (KRUN) 10 MEQ in IV 1 EA IV SCH ×4 (15:51→19:10)
[2023-02-18] MEDS: PIPERACILLIN/TAZOBACTAM SOD 3.375 GM in D5W MINI-BAG PLUS 50 ML IV SCH ×2 (16:38→21:13)
[2023-02-18] MEDS: fentaNYL CITRATE/NaCl 1,000 MCG in IV 1 EA IV SCH (17:58)
[2023-02-18] MEDS: CHLORHEXIDINE GLUCONATE 0.12 % 15ML UDC (PERIDEX ORAL RINSE) MT SCH (21:14)
[2023-02-18] MEDS ORDERED: diphenhydrAMINE 50MG/ML VIAL IV PRN (23:00)
[2023-02-18] MEDS ORDERED: diphenhydrAMINE 50MG/ML VIAL IV SCH (23:00)
[2023-02-19] VITALS (35 sets, daily range): BP systolic 117–177; BP diastolic 58–96; TEMP 97–98; O2SAT 90–97
[2023-02-19] MEDS: IPRATROPIUM 0.5MG/ALBUTEROL 2.5MG INH SOL UD 3ML (DUONEB) NEB SCH ×4 (03:06→20:37)
[2023-02-19] MEDS: PIPERACILLIN/TAZOBACTAM SOD 3.375 GM in D5W MINI-BAG PLUS 50 ML IV SCH ×4 (03:54→21:28)
[2023-02-19 04:44] LABS: HEMATOCRIT 35.1 % (42.0-52.0); HEMOGLOBIN 11.5 g/dl (13.5-17.5); MEAN CORPUSCULAR HEMOGLOBIN 30.6 pg (27.0-33.0); MEAN CORPUSCULAR HGB CONC 32.8 g/dl (32.0-36.5); MEAN CORPUSCULAR VOLUME 93.4 fl (80.0-96.0); PLATELET COUNT, AUTOMATED 145 10^3/uL (150-450); RED BLOOD COUNT 3.76 10^6/uL (4.30-6.10); WHITE BLOOD COUNT 10.7 10^3/uL (4.0-10.0)
[2023-02-19 05:11] LABS: ALBUMIN 2.3 G/DL (3.2-5.2); ALKALINE PHOSPHATASE 52 U/L (46-116); ALT/SGPT 19 U/L (7.0-40); AST/SGOT 24 U/L (<34); BILIRUBIN,TOTAL 0.5 MG/DL (0.3-1.2); BLOOD UREA NITROGEN 8 MG/DL (9-23); CALCIUM LEVEL 7.3 MG/DL (8.3-10.6); CARBON DIOXIDE LEVEL 23 MMOL/L (20-31); CHLORIDE LEVEL 109 MMOL/L (98-107); CREATININE FOR GFR 0.58 MG/DL (0.70-1.30); GLOMERULAR FILTRATION RATE > 60.0 (>42); GLUCOSE, FASTING 212 MG/DL (74-106); MAGNESIUM LEVEL 2.1 MG/DL (1.8-2.4); PHOSPHORUS LEVEL 1.4 MG/DL (2.4-5.1); POTASSIUM SERUM 3.6 MMOL/L (3.5-5.1); SODIUM LEVEL 140 MMOL/L (136-145); TOTAL PROTEIN 4.6 G/DL (5.7-8.2)
[2023-02-19 05:40] LABS: ABG BASE EXCESS -0.5 (-2.0-2.0); ABG HCO3 21.8 MMOL/L (22.0-26.0); ABG O2 SATURATION 96.8 % (95.0-99.0); ABG PARTIAL PRESSURE CO2 28.7 mmHg (35.0-45.0); ABG PARTIAL PRESSURE O2 84.8 mmHg (75.0-100.0); ABG STANDARD HCO3 24.1 MMOL/L. (22.0-26.0); ABG TOTAL CO2 22.7 MMOL/L (23.0-31.0); ABG pH (ARTERIAL) 7.498 UNITS (7.350-7.450)
[2023-02-19] MEDS: propofoL 1,000 MG in IV 1 EA IV SCH (06:32)
[2023-02-19] MEDS ORDERED: POTASSIUM CHL PWD 20MEQ PACKET PO ONE (07:55)
[2023-02-19] MEDS ORDERED: FUROSEMIDE 40MG/4ML VIAL IV ONE (08:30)
[2023-02-19] MEDS ORDERED: MULTIVITAMINS/MINERALS THERAP 1 TAB PO ONE (08:30)
[2023-02-19] MEDS: MIRALAX *UNIT DOSE* 17GM PACKET PO SCH (08:35)
[2023-02-19] MEDS: HEPARIN SOD (PORCINE) 5000UNITS/ML 1ML VIAL/SYRINGE SC SCH ×2 (08:35→20:44)
[2023-02-19] MEDS: SENNA 8.6 MG TAB (SENOKOT) PO SCH (08:36)
[2023-02-19] MEDS: CHLORHEXIDINE GLUCONATE 0.12 % 15ML UDC (PERIDEX ORAL RINSE) MT SCH ×2 (08:36→20:44)
[2023-02-19] MEDS ORDERED: PANTOPRAZOLE 40MG VIAL IV SCH (09:00)
[2023-02-19] MEDS ORDERED: FOLIC ACID 1MG TAB PO SCH (09:00)
[2023-02-19] MEDS ORDERED: POTASSIUM PHOSPHATE INJ 30 MMOL in D5W 500 ML IV ONE (10:00)
[2023-02-19] MEDS: dexmedeTOMidine 200 MCG in IV 1 EA IV SCH ×5 (11:38→23:53)
[2023-02-19] MEDS: fentaNYL CITRATE/NaCl 1,000 MCG in IV 1 EA IV SCH (14:35)
[2023-02-20] VITALS (30 sets, daily range): BP systolic 91–192; BP diastolic 53–85; TEMP 97.1–98.4; O2SAT 88–99
[2023-02-20] MEDS: dexmedeTOMidine 200 MCG in IV 1 EA IV SCH ×2 (01:59→03:11)
[2023-02-20] MEDS: IPRATROPIUM 0.5MG/ALBUTEROL 2.5MG INH SOL UD 3ML (DUONEB) NEB SCH ×2 (02:04→07:50)
[2023-02-20] MEDS: PIPERACILLIN/TAZOBACTAM SOD 3.375 GM in D5W MINI-BAG PLUS 50 ML IV SCH ×2 (03:10→11:07)
[2023-02-20 04:28] LABS: BASO % 0.1 % (0.0-1.0); EOS # 0.1 10^3/uL (0.0-0.5); EOS % 0.4 % (0.0-3.0); HEMATOCRIT 38.1 % (42.0-52.0); HEMOGLOBIN 12.4 g/dl (13.5-17.5); LYMPH % 7.3 % (24.0-44.0); MEAN CORPUSCULAR HEMOGLOBIN 30.5 pg (27.0-33.0); MEAN CORPUSCULAR HGB CONC 32.5 g/dl (32.0-36.5); MEAN CORPUSCULAR VOLUME 93.8 fl (80.0-96.0); MONO % 7.2 % (2.0-8.0); NEUTROPHILS # 11.9 10^3/uL (1.5-8.5); NEUTROPHILS % 84.6 % (36.0-66.0); PLATELET COUNT, AUTOMATED 154 10^3/uL (150-450); RED BLOOD COUNT 4.06 10^6/uL (4.30-6.10); WHITE BLOOD COUNT 14.1 10^3/uL (4.0-10.0)
[2023-02-20 04:49] LABS: INR 1.1; PROTHROMBIN TIME 14.4 SECONDS (12.5-14.5)
[2023-02-20 04:50] LABS: PARTIAL THROMBOPLASTIN TIME 29.8 SECONDS (24.8-34.2)
[2023-02-20 04:56] LABS: ALBUMIN 2.6 G/DL (3.2-5.2); ALKALINE PHOSPHATASE 61 U/L (46-116); ALT/SGPT 23 U/L (7.0-40); AST/SGOT 22 U/L (<34); BILIRUBIN,TOTAL 0.6 MG/DL (0.3-1.2); BLOOD UREA NITROGEN 9 MG/DL (9-23); CALCIUM LEVEL 7.8 MG/DL (8.3-10.6); CARBON DIOXIDE LEVEL 27 MMOL/L (20-31); CHLORIDE LEVEL 108 MMOL/L (98-107); CPK CREATINE PHOSPHOKINASE 301 U/L (46-171); CREATININE FOR GFR 0.69 MG/DL (0.70-1.30); GLOMERULAR FILTRATION RATE > 60.0 (>42); GLUCOSE, FASTING 123 MG/DL (74-106); MAGNESIUM LEVEL 1.9 MG/DL (1.8-2.4); PHOSPHORUS LEVEL 3.5 MG/DL (2.4-5.1); POTASSIUM SERUM 4.2 MMOL/L (3.5-5.1); SODIUM LEVEL 142 MMOL/L (136-145)
[2023-02-20 06:01] LABS: ABG BASE EXCESS 3.4 (-2.0-2.0); ABG HCO3 27.8 MMOL/L (22.0-26.0); ABG O2 SATURATION 98.7 % (95.0-99.0); ABG PARTIAL PRESSURE CO2 41.8 mmHg (35.0-45.0); ABG PARTIAL PRESSURE O2 128.6 mmHg (75.0-100.0); ABG STANDARD HCO3 27.5 MMOL/L. (22.0-26.0); ABG TOTAL CO2 29.1 MMOL/L (23.0-31.0); ABG pH (ARTERIAL) 7.441 UNITS (7.350-7.450)
[2023-02-20] MEDS ORDERED: LORazepam 2 MG TAB PO PRN (08:40)
[2023-02-20] MEDS ORDERED: ADENOSINE 6MG 2ML INJECTION IV STA ×3 (08:50→09:50)
[2023-02-20] MEDS ORDERED: ADENOSINE 6MG 2ML INJECTION As Ordered ONE ×2 (08:50→09:46)
[2023-02-20] MEDS ORDERED: MULTIVITAMINS/MINERALS THERAP 1 TAB PO SCH (09:00)
[2023-02-20] MEDS: CHLORHEXIDINE GLUCONATE 0.12 % 15ML UDC (PERIDEX ORAL RINSE) MT SCH (09:00)
[2023-02-20] MEDS ORDERED: FOLIC ACID 1MG TAB PO SCH (09:00)
[2023-02-20] MEDS: THIAMINE 100 MG TAB PO SCH ×2 (09:00→20:19)
[2023-02-20] MEDS ORDERED: FUROSEMIDE 40MG/4ML VIAL IV ONE (09:35)
[2023-02-20] MEDS ORDERED: FUROSEMIDE 20MG/2ML VIAL IV ONE (09:50)
[2023-02-20] MEDS ORDERED: ALBUTEROL SULFATE 2.5MG/0.5ML INH NEB SOLN NEB PRN (10:45)
[2023-02-20] MEDS: MIRALAX *UNIT DOSE* 17GM PACKET PO SCH (11:09)
[2023-02-20] MEDS: HEPARIN SOD (PORCINE) 5000UNITS/ML 1ML VIAL/SYRINGE SC SCH ×2 (11:10→20:19)
[2023-02-20] MEDS: SENNA 8.6 MG TAB (SENOKOT) PO SCH (11:10)
[2023-02-20] MEDS: FOLIC ACID 1MG TAB PO SCH (11:10)
[2023-02-20] MEDS: MULTIVITAMINS/MINERALS THERAP 1 TAB PO SCH (11:10)
[2023-02-20] MEDS: ALBUTEROL SULFATE 2.5MG/0.5ML INH NEB SOLN NEB SCH ×3 (12:18→20:40)
[2023-02-20] MEDS ORDERED: QUEtiapine FUMARATE 25 MG TAB PO ONE (13:20)
[2023-02-20] MEDS: SODIUM CHLORIDE HYPERTONIC 3% 4ML NEB SOL INH SCH ×3 (13:30→20:40)
[2023-02-20] MEDS ORDERED: QUEtiapine FUMERATE XR 50MG TABER PO PRN (21:00)
[2023-02-20] MEDS ORDERED: QUEtiapine FUMERATE XR 50MG TABER PO SCH (21:00)
[2023-02-20] MEDS ORDERED: IPRATROPIUM 0.5MG/ALBUTEROL 2.5MG INH SOL UD 3ML (DUONEB) NEB ONE (21:30)
[2023-02-20] MEDS ORDERED: RACEPINEPHrine 2.25% UD INHAL INH ONE (23:15)
[2023-02-21] VITALS (31 sets, daily range): BP systolic 82–193; BP diastolic 53–87; TEMP 97–98.2; O2SAT 86–96
[2023-02-21] MEDS ORDERED: IPRATROPIUM 0.5MG/ALBUTEROL 2.5MG INH SOL UD 3ML (DUONEB) NEB ONE (04:05)
[2023-02-21] MEDS: ALBUTEROL SULFATE 2.5MG/0.5ML INH NEB SOLN NEB SCH ×3 (04:06→08:01)
[2023-02-21] MEDS: SODIUM CHLORIDE HYPERTONIC 3% 4ML NEB SOL INH SCH ×7 (04:06→23:57)
[2023-02-21] MEDS ORDERED: methylPREDNISolone 125MG 2ML VIAL IV ONE (04:15)
[2023-02-21] MEDS ORDERED: FUROSEMIDE 20MG/2ML VIAL IV ONE (04:15)
[2023-02-21 05:39] LABS: ABG BASE EXCESS 3.2 (-2.0-2.0); ABG HCO3 26.6 MMOL/L (22.0-26.0); ABG O2 SATURATION 95.1 % (95.0-99.0); ABG PARTIAL PRESSURE CO2 36.4 mmHg (35.0-45.0); ABG PARTIAL PRESSURE O2 73.7 mmHg (75.0-100.0); ABG STANDARD HCO3 27.3 MMOL/L. (22.0-26.0); ABG TOTAL CO2 27.7 MMOL/L (23.0-31.0); ABG pH (ARTERIAL) 7.481 UNITS (7.350-7.450)
[2023-02-21] MEDS: methylPREDNISolone 125MG 2ML VIAL IV SCH ×3 (07:52→23:33)
[2023-02-21] MEDS: HEPARIN SOD (PORCINE) 5000UNITS/ML 1ML VIAL/SYRINGE SC SCH ×2 (07:53→20:13)
[2023-02-21 08:26] LABS: HEMATOCRIT 41.8 % (42.0-52.0); HEMOGLOBIN 13.5 g/dl (13.5-17.5); MEAN CORPUSCULAR HEMOGLOBIN 30.5 pg (27.0-33.0); MEAN CORPUSCULAR HGB CONC 32.3 g/dl (32.0-36.5); MEAN CORPUSCULAR VOLUME 94.4 fl (80.0-96.0); PLATELET COUNT, AUTOMATED 210 10^3/uL (150-450); RED BLOOD COUNT 4.43 10^6/uL (4.30-6.10); WHITE BLOOD COUNT 19.1 10^3/uL (4.0-10.0)
[2023-02-21] MEDS ORDERED: BISACODYL 10MG SUPP PR ONE (08:35)
[2023-02-21 08:48] LABS: ALBUMIN 2.7 G/DL (3.2-5.2); BLOOD UREA NITROGEN 12 MG/DL (9-23); CALCIUM LEVEL 7.8 MG/DL (8.3-10.6); CARBON DIOXIDE LEVEL 28 MMOL/L (20-31); CHLORIDE LEVEL 103 MMOL/L (98-107); CREATININE FOR GFR 0.65 MG/DL (0.70-1.30); GLOMERULAR FILTRATION RATE > 60.0 (>42); GLUCOSE, FASTING 96 MG/DL (74-106); MAGNESIUM LEVEL 1.8 MG/DL (1.8-2.4); PHOSPHORUS LEVEL 3.6 MG/DL (2.4-5.1); POTASSIUM SERUM 3.7 MMOL/L (3.5-5.1); SODIUM LEVEL 141 MMOL/L (136-145)
[2023-02-21] MEDS: MULTIVITAMINS/MINERALS THERAP 1 TAB PO SCH (09:00)
[2023-02-21] MEDS: MIRALAX *UNIT DOSE* 17GM PACKET PO SCH (09:00)
[2023-02-21] MEDS: SENNA 8.6 MG TAB (SENOKOT) PO SCH (09:00)
[2023-02-21] MEDS: THIAMINE 100 MG TAB PO SCH (09:00)
[2023-02-21] MEDS: FOLIC ACID 1MG TAB PO SCH (09:00)
[2023-02-21] MEDS ORDERED: ADENOSINE 6MG 2ML INJECTION As Ordered ONE (11:55)
[2023-02-21] MEDS ORDERED: ADENOSINE 6MG 2ML INJECTION IV STA (11:58)
[2023-02-21] MEDS ORDERED: METOPROLOL TART 12.5 MG PER 1/2 TAB PO SCH ×2 (12:00→12:45)
[2023-02-21] MEDS: LEVALBUTEROL 1.25MG/3ML NEB SOLN INH SCH ×4 (13:45→23:57)
[2023-02-21] MEDS ORDERED: METOPROLOL 5 MG/5 ML VIAL IV SCH (15:00)
[2023-02-21] MEDS ORDERED: MULTIVITAMIN -ADULT INJECTION 10 ML, THIAMINE INJection 100 MG, FOLIC ACID 1 MG in NS 1... IV ONE (16:00)
[2023-02-21] MEDS ORDERED: MULTIVITAMIN -ADULT INJECTION 10 ML, THIAMINE INJection 100 MG, FOLIC ACID 1 MG in NS 1... IV SCH (16:00)
[2023-02-21] MEDS: METOPROLOL 5 MG/5 ML VIAL IV SCH (20:14)
[2023-02-22] VITALS (21 sets, daily range): BP systolic 131–193; BP diastolic 61–105; TEMP 97–98; O2SAT 87–95
[2023-02-22] MEDS: METOPROLOL 5 MG/5 ML VIAL IV SCH ×2 (01:54→09:35)
[2023-02-22] MEDS: SODIUM CHLORIDE HYPERTONIC 3% 4ML NEB SOL INH SCH ×4 (03:38→21:30)
[2023-02-22] MEDS: LEVALBUTEROL 1.25MG/3ML NEB SOLN INH SCH ×4 (03:39→20:00)
[2023-02-22 04:27] LABS: HEMATOCRIT 42.7 % (42.0-52.0); MEAN CORPUSCULAR HEMOGLOBIN 30.8 pg (27.0-33.0); MEAN CORPUSCULAR HGB CONC 32.8 g/dl (32.0-36.5); MEAN CORPUSCULAR VOLUME 94.1 fl (80.0-96.0); PLATELET COUNT, AUTOMATED 232 10^3/uL (150-450); RED BLOOD COUNT 4.54 10^6/uL (4.30-6.10); WHITE BLOOD COUNT 21.5 10^3/uL (4.0-10.0)
[2023-02-22 04:53] LABS: BLOOD UREA NITROGEN 20 MG/DL (9-23); CALCIUM LEVEL 7.8 MG/DL (8.3-10.6); CARBON DIOXIDE LEVEL 28 MMOL/L (20-31); CHLORIDE LEVEL 106 MMOL/L (98-107); CREATININE FOR GFR 0.59 MG/DL (0.70-1.30); GLOMERULAR FILTRATION RATE > 60.0 (>42); GLUCOSE, FASTING 131 MG/DL (74-106); POTASSIUM SERUM 3.8 MMOL/L (3.5-5.1); SODIUM LEVEL 143 MMOL/L (136-145)
[2023-02-22] MEDS: PIPERACILLIN/TAZOBACTAM SOD 4.5 GM in D5W MINI-BAG PLUS 50 ML IV SCH ×3 (09:29→21:20)
[2023-02-22] MEDS: HEPARIN SOD (PORCINE) 5000UNITS/ML 1ML VIAL/SYRINGE SC SCH ×2 (09:30→20:13)
[2023-02-22] MEDS: FUROSEMIDE 40MG/4ML VIAL IV SCH ×2 (09:30→17:07)
[2023-02-22] MEDS: methylPREDNISolone 125MG 2ML VIAL IV SCH ×3 (09:34→23:23)
[2023-02-22] MEDS: PANTOPRAZOLE 40MG VIAL IV SCH (09:35)
[2023-02-22] MEDS: MIRALAX *UNIT DOSE* 17GM PACKET PO SCH (11:41)
[2023-02-22] MEDS: SENNA 8.6 MG TAB (SENOKOT) PO SCH (11:41)
[2023-02-22] MEDS: METOPROLOL TART 12.5 MG PER 1/2 TAB NG SCH ×2 (17:06→23:23)
[2023-02-22] MEDS: LACRILUBE (AKWA TEARS) OPHTH OINT 3.5GM OD SCH ×2 (17:08→20:13)
[2023-02-23] VITALS (25 sets, daily range): BP systolic 109–172; BP diastolic 53–101; TEMP 97–98; O2SAT 90–99
[2023-02-23] MEDS: LEVALBUTEROL 1.25MG/3ML NEB SOLN INH SCH ×4 (02:00→19:18)
[2023-02-23] MEDS: SODIUM CHLORIDE HYPERTONIC 3% 4ML NEB SOL INH SCH ×4 (03:10→19:18)
[2023-02-23] MEDS: PIPERACILLIN/TAZOBACTAM SOD 4.5 GM in D5W MINI-BAG PLUS 50 ML IV SCH ×4 (03:28→21:20)
[2023-02-23 04:37] LABS: BASO % 0.1 % (0.0-1.0); HEMATOCRIT 44.3 % (42.0-52.0); HEMOGLOBIN 14.4 g/dl (13.5-17.5); LYMPH # 0.8 10^3/uL (1.5-5.0); LYMPH % 3.5 % (24.0-44.0); MEAN CORPUSCULAR HEMOGLOBIN 30.5 pg (27.0-33.0); MEAN CORPUSCULAR HGB CONC 32.5 g/dl (32.0-36.5); MEAN CORPUSCULAR VOLUME 93.9 fl (80.0-96.0); MONO # 1.1 10^3/uL (0.0-0.8); MONO % 4.9 % (2.0-8.0); NEUTROPHILS # 20.2 10^3/uL (1.5-8.5); PLATELET COUNT, AUTOMATED 281 10^3/uL (150-450); RED BLOOD COUNT 4.72 10^6/uL (4.30-6.10); WHITE BLOOD COUNT 22.2 10^3/uL (4.0-10.0)
[2023-02-23 04:57] LABS: LDH LACTATE DEHYDROGENASE 414 U/L (120-246)
[2023-02-23 04:58] LABS: CPK CREATINE PHOSPHOKINASE 86 U/L (46-171)
[2023-02-23 05:04] LABS: ALBUMIN 2.1 G/DL (3.2-5.2); ALKALINE PHOSPHATASE 77 U/L (46-116); ALT/SGPT 20 U/L (7.0-40); AST/SGOT 42 U/L (<34); BILIRUBIN,TOTAL 0.8 MG/DL (0.3-1.2); BLOOD UREA NITROGEN 31 MG/DL (9-23); CALCIUM LEVEL 7.7 MG/DL (8.3-10.6); CARBON DIOXIDE LEVEL 34 MMOL/L (20-31); CHLORIDE LEVEL 104 MMOL/L (98-107); CHOLESTEROL LEVEL 143 MG/DL (<200); CREATININE FOR GFR 0.74 MG/DL (0.70-1.30); GLOMERULAR FILTRATION RATE > 60.0 (>42); GLUCOSE, FASTING 179 MG/DL (74-106); PHOSPHORUS LEVEL 3.5 MG/DL (2.4-5.1); POTASSIUM SERUM 3.4 MMOL/L (3.5-5.1); SODIUM LEVEL 147 MMOL/L (136-145); TOTAL PROTEIN 5.3 G/DL (5.7-8.2); TRIGLYCERIDES LEVEL 173 MG/DL (<150)
[2023-02-23] MEDS: METOPROLOL TART 12.5 MG PER 1/2 TAB NG SCH ×4 (05:04→23:47)
[2023-02-23] MEDS ORDERED: POTASSIUM CHLORIDE 10% LIQ 20MEQ/15ML UDC NG ONE (06:40)
[2023-02-23 06:55] LABS: MAGNESIUM LEVEL 2.1 MG/DL (1.8-2.4)
[2023-02-23 07:58] LABS: PROCALCITONIN 0.59 ng/ml
[2023-02-23] MEDS: methylPREDNISolone 125MG 2ML VIAL IV SCH ×3 (08:16→23:47)
[2023-02-23] MEDS: FUROSEMIDE 40MG/4ML VIAL IV SCH ×2 (08:17→17:10)
[2023-02-23] MEDS: MIRALAX *UNIT DOSE* 17GM PACKET PO SCH (08:17)
[2023-02-23] MEDS: HEPARIN SOD (PORCINE) 5000UNITS/ML 1ML VIAL/SYRINGE SC SCH ×2 (08:17→20:06)
[2023-02-23] MEDS: SENNA 8.6 MG TAB (SENOKOT) PO SCH (08:18)
[2023-02-23] MEDS: LACRILUBE (AKWA TEARS) OPHTH OINT 3.5GM OD SCH ×3 (08:18→20:06)
[2023-02-23] MEDS: PANTOPRAZOLE 40MG VIAL IV SCH (09:41)
[2023-02-23] MEDS ORDERED: QUEtiapine FUMARATE 50MG TAB PO SCH (21:00)
[2023-02-23] MEDS ORDERED: OLANZapine INTRAMUSCULAR 10MG VIAL IM ONE (23:15)
[2023-02-24] VITALS (13 sets, daily range): BP systolic 96–156; BP diastolic 56–84; TEMP 97–98.6; O2SAT 90–100
[2023-02-24] MEDS: LEVALBUTEROL 1.25MG/3ML NEB SOLN INH SCH ×4 (01:09→20:03)
[2023-02-24] MEDS: SODIUM CHLORIDE HYPERTONIC 3% 4ML NEB SOL INH SCH ×4 (01:09→20:03)
[2023-02-24] MEDS: PIPERACILLIN/TAZOBACTAM SOD 4.5 GM in D5W MINI-BAG PLUS 50 ML IV SCH (03:47)
[2023-02-24] MEDS: METOPROLOL TART 12.5 MG PER 1/2 TAB NG SCH ×4 (05:22→18:35)
[2023-02-24 06:24] LABS: HEMATOCRIT 47.3 % (42.0-52.0); HEMOGLOBIN 14.9 g/dl (13.5-17.5); MEAN CORPUSCULAR HEMOGLOBIN 30.1 pg (27.0-33.0); MEAN CORPUSCULAR HGB CONC 31.5 g/dl (32.0-36.5); MEAN CORPUSCULAR VOLUME 95.6 fl (80.0-96.0); PLATELET COUNT, AUTOMATED 253 10^3/uL (150-450); RED BLOOD COUNT 4.95 10^6/uL (4.30-6.10); WHITE BLOOD COUNT 18.3 10^3/uL (4.0-10.0)
[2023-02-24 06:46] LABS: LDH LACTATE DEHYDROGENASE 406 U/L (120-246)
[2023-02-24 06:53] LABS: ALBUMIN 2.3 G/DL (3.2-5.2); ALKALINE PHOSPHATASE 73 U/L (46-116); ALT/SGPT 71 U/L (7.0-40); AST/SGOT < 8 U/L (<34); BILIRUBIN,TOTAL 1.1 MG/DL (0.3-1.2); BLOOD UREA NITROGEN 37 MG/DL (9-23); CALCIUM LEVEL 7.9 MG/DL (8.3-10.6); CARBON DIOXIDE LEVEL > 40.0 MMOL/L (20-31); CHLORIDE LEVEL 101 MMOL/L (98-107); CHOLESTEROL LEVEL 161 MG/DL (<200); CPK CREATINE PHOSPHOKINASE 164 U/L (46-171); CREATININE FOR GFR 0.86 MG/DL (0.70-1.30); GLOMERULAR FILTRATION RATE > 60.0 (>42); GLUCOSE, FASTING 160 MG/DL (74-106); MAGNESIUM LEVEL 2.6 MG/DL (1.8-2.4); PHOSPHORUS LEVEL 3.7 MG/DL (2.4-5.1); POTASSIUM SERUM 3.6 MMOL/L (3.5-5.1); SODIUM LEVEL 150 MMOL/L (136-145); TOTAL PROTEIN 5.4 G/DL (5.7-8.2); TRIGLYCERIDES LEVEL 231 MG/DL (<150)
[2023-02-24] MEDS: FUROSEMIDE 40MG/4ML VIAL IV SCH (08:05)
[2023-02-24] MEDS: D5W 1,000 ML IV SCH ×2 (08:05→23:57)
[2023-02-24] MEDS: LACRILUBE (AKWA TEARS) OPHTH OINT 3.5GM OD SCH ×3 (08:13→20:48)
[2023-02-24] MEDS: HEPARIN SOD (PORCINE) 5000UNITS/ML 1ML VIAL/SYRINGE SC SCH ×2 (08:13→20:48)
[2023-02-24 08:55] LABS: ABG BASE EXCESS 14.4 (-2.0-2.0); ABG HCO3 40.2 MMOL/L (22.0-26.0); ABG O2 SATURATION 95.1 % (95.0-99.0); ABG PARTIAL PRESSURE CO2 52.7 mmHg (35.0-45.0); ABG PARTIAL PRESSURE O2 75.8 mmHg (75.0-100.0); ABG STANDARD HCO3 38.3 MMOL/L. (22.0-26.0); ABG TOTAL CO2 41.8 MMOL/L (23.0-31.0)
[2023-02-24] MEDS ORDERED: methylPREDNISolone 125MG 2ML VIAL IV SCH (09:00)
[2023-02-24] MEDS: PANTOPRAZOLE 40MG VIAL IV SCH (09:54)
[2023-02-24] MEDS: cefTRIAXone SOD 1 GM in D5W MINI-BAG PLUS 50 ML IV SCH (12:13)
[2023-02-24] MEDS ORDERED: OLANZapine 5 MG TAB PO PRN (16:00)
[2023-02-24] MEDS ORDERED: PILL CUTTER 1 EACH XX PRN (16:15)
[2023-02-24] MEDS: KCL 10MEQ/100ML SWI (KRUN) 10 MEQ in IV 1 EA IV SCH ×3 (16:21→17:19)
[2023-02-24] MEDS ORDERED: FUROSEMIDE 20MG/2ML VIAL IV SCH (17:00)
[2023-02-24] MEDS ORDERED: POTASSIUM CHLORIDE 10% LIQ 20MEQ/15ML UDC PO ONE (17:25)
[2023-02-24] MEDS: OLANZapine 2.5MG TABLET PO PRN (17:51)
[2023-02-24] MEDS: methylPREDNISolone 40MG 1ML VIAL IV SCH (20:47)
[2023-02-24] MEDS: FOLIC ACID 1MG TAB NG SCH (20:48)
[2023-02-24] MEDS: QUEtiapine FUMARATE 50MG TAB NG SCH (20:48)
[2023-02-24] MEDS: FINASTERIDE 5MG TAB NG SCH (20:48)
[2023-02-25] VITALS (17 sets, daily range): BP systolic 115–162; BP diastolic 55–68; TEMP 96.8–97.5; O2SAT 91–100
[2023-02-25] MEDS: SODIUM CHLORIDE HYPERTONIC 3% 4ML NEB SOL INH SCH ×4 (01:33→20:39)
[2023-02-25] MEDS: LEVALBUTEROL 1.25MG/3ML NEB SOLN INH SCH ×4 (01:33→20:39)
[2023-02-25 05:45] LABS: HEMATOCRIT 47.6 % (42.0-52.0); HEMOGLOBIN 15.3 g/dl (13.5-17.5); MEAN CORPUSCULAR HEMOGLOBIN 30.2 pg (27.0-33.0); MEAN CORPUSCULAR HGB CONC 32.1 g/dl (32.0-36.5); MEAN CORPUSCULAR VOLUME 94.1 fl (80.0-96.0); PLATELET COUNT, AUTOMATED 236 10^3/uL (150-450); RED BLOOD COUNT 5.06 10^6/uL (4.30-6.10); WHITE BLOOD COUNT 15.3 10^3/uL (4.0-10.0)
[2023-02-25] MEDS: METOPROLOL TART 12.5 MG PER 1/2 TAB NG SCH ×4 (05:45→17:36)
[2023-02-25 06:11] LABS: BLOOD UREA NITROGEN 40 MG/DL (9-23); CALCIUM LEVEL 8.9 MG/DL (8.3-10.6); CARBON DIOXIDE LEVEL 35 MMOL/L (20-31); CHLORIDE LEVEL 101 MMOL/L (98-107); CREATININE FOR GFR 0.86 MG/DL (0.70-1.30); GLOMERULAR FILTRATION RATE > 60.0 (>42); GLUCOSE, FASTING 149 MG/DL (74-106); MAGNESIUM LEVEL 2.6 MG/DL (1.8-2.4); POTASSIUM SERUM 3.1 MMOL/L (3.5-5.1); SODIUM LEVEL 145 MMOL/L (136-145)
[2023-02-25] MEDS: HEPARIN SOD (PORCINE) 5000UNITS/ML 1ML VIAL/SYRINGE SC SCH ×2 (08:31→21:08)
[2023-02-25] MEDS: LACRILUBE (AKWA TEARS) OPHTH OINT 3.5GM OD SCH ×3 (08:32→21:07)
[2023-02-25] MEDS: QUEtiapine FUMARATE 50MG TAB NG SCH ×2 (08:32→21:08)
[2023-02-25] MEDS: methylPREDNISolone 40MG 1ML VIAL IV SCH ×2 (08:32→21:07)
[2023-02-25] MEDS: PANTOPRAZOLE 40MG VIAL IV SCH (08:32)
[2023-02-25] MEDS: THIAMINE 100 MG TAB NG SCH (08:33)
[2023-02-25] MEDS ORDERED: KCL 10MEQ/100ML SWI (KRUN) 10 MEQ in IV 1 EA IV SCH (10:00)
[2023-02-25] MEDS: D5W 1,000 ML IV SCH (10:43)
[2023-02-25] MEDS: cefTRIAXone SOD 1 GM in D5W MINI-BAG PLUS 50 ML IV SCH (11:50)
[2023-02-25] MEDS ORDERED: POTASSIUM CHLORIDE 10% LIQ 20MEQ/15ML UDC NG ONE (12:00)
[2023-02-25] MEDS: FINASTERIDE 5MG TAB NG SCH (21:07)
[2023-02-25] MEDS: FOLIC ACID 1MG TAB NG SCH (21:08)
[2023-02-26] VITALS (7 sets, daily range): BP systolic 97–188; BP diastolic 56–77; TEMP 97.9–99.8; O2SAT 91–98
[2023-02-26] MEDS: LEVALBUTEROL 1.25MG/3ML NEB SOLN INH SCH ×4 (01:32→19:45)
[2023-02-26] MEDS: SODIUM CHLORIDE HYPERTONIC 3% 4ML NEB SOL INH SCH ×4 (01:32→19:45)
[2023-02-26 05:17] LABS: HEMATOCRIT 48.8 % (42.0-52.0); HEMOGLOBIN 15.3 g/dl (13.5-17.5); MEAN CORPUSCULAR HEMOGLOBIN 29.9 pg (27.0-33.0); MEAN CORPUSCULAR HGB CONC 31.4 g/dl (32.0-36.5); MEAN CORPUSCULAR VOLUME 95.5 fl (80.0-96.0); PLATELET COUNT, AUTOMATED 224 10^3/uL (150-450); RED BLOOD COUNT 5.11 10^6/uL (4.30-6.10); WHITE BLOOD COUNT 16.6 10^3/uL (4.0-10.0)
[2023-02-26] MEDS: METOPROLOL TART 12.5 MG PER 1/2 TAB NG SCH ×4 (05:19→17:39)
[2023-02-26 05:45] LABS: BLOOD UREA NITROGEN 34 MG/DL (9-23); CALCIUM LEVEL 8.4 MG/DL (8.3-10.6); CARBON DIOXIDE LEVEL 33 MMOL/L (20-31); CHLORIDE LEVEL 107 MMOL/L (98-107); CREATININE FOR GFR 0.72 MG/DL (0.70-1.30); GLOMERULAR FILTRATION RATE > 60.0 (>42); GLUCOSE, FASTING 166 MG/DL (74-106); MAGNESIUM LEVEL 2.6 MG/DL (1.8-2.4); POTASSIUM SERUM 4.3 MMOL/L (3.5-5.1); SODIUM LEVEL 145 MMOL/L (136-145)
[2023-02-26] MEDS: methylPREDNISolone 40MG 1ML VIAL IV SCH ×2 (08:34→20:31)
[2023-02-26] MEDS: THIAMINE 100 MG TAB NG SCH (08:34)
[2023-02-26] MEDS: HEPARIN SOD (PORCINE) 5000UNITS/ML 1ML VIAL/SYRINGE SC SCH ×3 (08:34→20:31)
[2023-02-26] MEDS: QUEtiapine FUMARATE 50MG TAB NG SCH ×2 (08:34→20:31)
[2023-02-26] MEDS: LACRILUBE (AKWA TEARS) OPHTH OINT 3.5GM OD SCH ×3 (08:38→20:31)
[2023-02-26] MEDS: cefTRIAXone SOD 1 GM in D5W MINI-BAG PLUS 50 ML IV SCH (11:07)
[2023-02-26] MEDS: PANTOPRAZOLE 40MG VIAL IV SCH (11:09)
[2023-02-26] MEDS: FOLIC ACID 1MG TAB NG SCH (20:32)
[2023-02-26] MEDS: FINASTERIDE 5MG TAB NG SCH (20:32)
[2023-02-27 00:33] VITALS: BP 120/56; TEMP 97.8; O2SAT 95
[2023-02-27] MEDS: METOPROLOL TART 12.5 MG PER 1/2 TAB NG SCH ×4 (00:40→18:07)
[2023-02-27] MEDS: LEVALBUTEROL 1.25MG/3ML NEB SOLN INH SCH ×4 (02:59→20:59)
[2023-02-27] MEDS: SODIUM CHLORIDE HYPERTONIC 3% 4ML NEB SOL INH SCH ×4 (02:59→20:00)
[2023-02-27 04:00] VITALS: BP 142/63; TEMP 97.8; O2SAT 91
[2023-02-27 04:46] LABS: MEAN CORPUSCULAR HEMOGLOBIN 30.4 pg (27.0-33.0); MEAN CORPUSCULAR HGB CONC 31.9 g/dl (32.0-36.5); MEAN CORPUSCULAR VOLUME 95.3 fl (80.0-96.0); PLATELET COUNT, AUTOMATED 235 10^3/uL (150-450); RED BLOOD COUNT 4.93 10^6/uL (4.30-6.10); WHITE BLOOD COUNT 23.5 10^3/uL (4.0-10.0)
[2023-02-27 05:05] LABS: BLOOD UREA NITROGEN 27 MG/DL (9-23); CALCIUM LEVEL 8.1 MG/DL (8.3-10.6); CARBON DIOXIDE LEVEL 36 MMOL/L (20-31); CHLORIDE LEVEL 105 MMOL/L (98-107); CREATININE FOR GFR 0.75 MG/DL (0.70-1.30); GLOMERULAR FILTRATION RATE > 60.0 (>42); GLUCOSE, FASTING 146 MG/DL (74-106); MAGNESIUM LEVEL 2.2 MG/DL (1.8-2.4); POTASSIUM SERUM 3.9 MMOL/L (3.5-5.1); SODIUM LEVEL 146 MMOL/L (136-145)
[2023-02-27 08:00] VITALS: BP 142/61; TEMP 99; O2SAT 94
[2023-02-27] MEDS: LACRILUBE (AKWA TEARS) OPHTH OINT 3.5GM OD SCH ×3 (09:00→22:50)
[2023-02-27] MEDS: PANTOPRAZOLE 40MG VIAL IV SCH (09:31)
[2023-02-27] MEDS: QUEtiapine FUMARATE 50MG TAB NG SCH ×2 (09:31→20:22)
[2023-02-27] MEDS: methylPREDNISolone 40MG 1ML VIAL IV SCH (09:31)
[2023-02-27] MEDS: HEPARIN SOD (PORCINE) 5000UNITS/ML 1ML VIAL/SYRINGE SC SCH ×2 (09:31→20:21)
[2023-02-27] MEDS: THIAMINE 100 MG TAB NG SCH (09:31)
[2023-02-27 12:00] VITALS: BP 117/64; TEMP 98.3; O2SAT 97
[2023-02-27] MEDS: cefTRIAXone SOD 2 GM in D5W MINI-BAG PLUS 50 ML IV SCH (12:10)
[2023-02-27] MEDS ORDERED: BARIUM SULFATE 700 MG TABLET (E-Z-DISK) As Ordered ONE (14:09)
[2023-02-27] MEDS ORDERED: VARIBAR PUDDING 40% w/v 230ML TUBE As Ordered ONE (14:09)
[2023-02-27] MEDS ORDERED: VARIBAR NECTAR 40% w/v 240ML SUSP BTL As Ordered ONE (14:09)
[2023-02-27] MEDS ORDERED: E-Z-PAQUE 96% w/w SUSP 176GM BTL As Ordered ONE (14:09)
[2023-02-27 17:10] VITALS: BP 141/65; TEMP 97.7; O2SAT 98
[2023-02-27 19:11] LABS: CK-MB VALUE MASS < 1.0 NG/ML (<3.6)
[2023-02-27 19:15] LABS: CPK CREATINE PHOSPHOKINASE 130 U/L (46-171); MB/CK RELATIVE INDEX 0.76 (< OR =4)
[2023-02-27] MEDS ORDERED: MAALOX 30 ML SUSP *UDC PO PRN (19:55)
[2023-02-27] MEDS: predniSONE 20 MG TAB PO SCH (20:22)
[2023-02-27] MEDS: FOLIC ACID 1MG TAB NG SCH (20:22)
[2023-02-27] MEDS: FINASTERIDE 5MG TAB NG SCH (20:22)
[2023-02-27 21:43] VITALS: BP 107/65; TEMP 97.7; O2SAT 97
[2023-02-28] MEDS: METOPROLOL TART 12.5 MG PER 1/2 TAB NG SCH (00:07)
[2023-02-28] MEDS: OLANZapine 2.5MG TABLET PO PRN (01:20)
[2023-02-28] MEDS: SODIUM CHLORIDE HYPERTONIC 3% 4ML NEB SOL INH SCH ×4 (02:00→20:00)
[2023-02-28] MEDS: METOPROLOL TART 12.5 MG PER 1/2 TAB PO SCH ×4 (02:42→20:27)
[2023-02-28] MEDS: LEVALBUTEROL 1.25MG/3ML NEB SOLN INH SCH ×4 (02:50→20:00)
[2023-02-28 02:56] LABS: CK-MB VALUE MASS < 1.0 NG/ML (<3.6)
[2023-02-28 02:58] LABS: CPK CREATINE PHOSPHOKINASE 81 U/L (46-171); MB/CK RELATIVE INDEX 1.23 (< OR =4)
[2023-02-28] MEDS ORDERED: OLANZapine 2.5MG TABLET PO ONE (03:00)
[2023-02-28 06:15] LABS: HEMATOCRIT 45.2 % (42.0-52.0); HEMOGLOBIN 14.5 g/dl (13.5-17.5); MEAN CORPUSCULAR HEMOGLOBIN 30.1 pg (27.0-33.0); MEAN CORPUSCULAR HGB CONC 32.1 g/dl (32.0-36.5); PLATELET COUNT, AUTOMATED 208 10^3/uL (150-450); RED BLOOD COUNT 4.81 10^6/uL (4.30-6.10); WHITE BLOOD COUNT 21.1 10^3/uL (4.0-10.0)
[2023-02-28 06:37] LABS: BLOOD UREA NITROGEN 23 MG/DL (9-23); CALCIUM LEVEL 8.3 MG/DL (8.3-10.6); CARBON DIOXIDE LEVEL 35 MMOL/L (20-31); CHLORIDE LEVEL 101 MMOL/L (98-107); CREATININE FOR GFR 0.75 MG/DL (0.70-1.30); GLOMERULAR FILTRATION RATE > 60.0 (>42); GLUCOSE, FASTING 119 MG/DL (74-106); MAGNESIUM LEVEL 2.1 MG/DL (1.8-2.4); POTASSIUM SERUM 3.8 MMOL/L (3.5-5.1); SODIUM LEVEL 141 MMOL/L (136-145)
[2023-02-28 06:54] VITALS: BP 135/58; TEMP 97; O2SAT 97
[2023-02-28] MEDS: HEPARIN SOD (PORCINE) 5000UNITS/ML 1ML VIAL/SYRINGE SC SCH ×2 (08:56→20:27)
[2023-02-28] MEDS: predniSONE 20 MG TAB PO SCH (08:57)
[2023-02-28] MEDS: LACRILUBE (AKWA TEARS) OPHTH OINT 3.5GM OD SCH ×4 (09:00→20:26)
[2023-02-28] MEDS: PANTOPRAZOLE 40MG TAB (PROTONIX) PO SCH (09:00)
[2023-02-28] MEDS: THIAMINE 100 MG TAB PO SCH (09:00)
[2023-02-28] MEDS: QUEtiapine FUMARATE 50MG TAB PO SCH ×2 (09:01→20:27)
[2023-02-28 11:19] LABS: CK-MB VALUE MASS < 1.0 NG/ML (<3.6)
[2023-02-28 11:21] LABS: CPK CREATINE PHOSPHOKINASE 90 U/L (46-171); MB/CK RELATIVE INDEX 1.11 (< OR =4)
[2023-02-28] MEDS: cefTRIAXone SOD 2 GM in D5W MINI-BAG PLUS 50 ML IV SCH (12:19)
[2023-02-28 14:00] VITALS: BP 127/60; TEMP 98.1; O2SAT 96
[2023-02-28 20:15] VITALS: BP 128/60; TEMP 97.9; O2SAT 96
[2023-02-28] MEDS: FINASTERIDE 5MG TAB PO SCH (20:27)
[2023-02-28] MEDS: FOLIC ACID 1MG TAB PO SCH (20:28)
[2023-03-01] MEDS: SODIUM CHLORIDE HYPERTONIC 3% 4ML NEB SOL INH SCH ×4 (00:31→20:27)
[2023-03-01] MEDS: LEVALBUTEROL 1.25MG/3ML NEB SOLN INH SCH ×4 (00:31→20:27)
[2023-03-01] MEDS: METOPROLOL TART 12.5 MG PER 1/2 TAB PO SCH ×4 (02:42→20:42)
[2023-03-01 06:20] VITALS: BP 103/58; TEMP 98.4; O2SAT 91
[2023-03-01 06:37] LABS: HEMATOCRIT 44.3 % (42.0-52.0); HEMOGLOBIN 14.3 g/dl (13.5-17.5); MEAN CORPUSCULAR HGB CONC 32.3 g/dl (32.0-36.5); MEAN CORPUSCULAR VOLUME 93.1 fl (80.0-96.0); PLATELET COUNT, AUTOMATED 211 10^3/uL (150-450); RED BLOOD COUNT 4.76 10^6/uL (4.30-6.10); WHITE BLOOD COUNT 16.6 10^3/uL (4.0-10.0)
[2023-03-01 07:09] LABS: BLOOD UREA NITROGEN 18 MG/DL (9-23); CARBON DIOXIDE LEVEL 31 MMOL/L (20-31); CHLORIDE LEVEL 103 MMOL/L (98-107); CREATININE FOR GFR 0.75 MG/DL (0.70-1.30); GLOMERULAR FILTRATION RATE > 60.0 (>42); GLUCOSE, FASTING 92 MG/DL (74-106); POTASSIUM SERUM 3.5 MMOL/L (3.5-5.1); SODIUM LEVEL 142 MMOL/L (136-145)
[2023-03-01] MEDS: PANTOPRAZOLE 40MG TAB (PROTONIX) PO SCH (08:29)
[2023-03-01] MEDS: HEPARIN SOD (PORCINE) 5000UNITS/ML 1ML VIAL/SYRINGE SC SCH ×2 (08:29→21:07)
[2023-03-01] MEDS: QUEtiapine FUMARATE 50MG TAB PO SCH ×2 (08:29→21:07)
[2023-03-01] MEDS: predniSONE 20 MG TAB PO SCH (08:29)
[2023-03-01] MEDS: THIAMINE 100 MG TAB PO SCH (08:30)
[2023-03-01] MEDS: LACRILUBE (AKWA TEARS) OPHTH OINT 3.5GM OD SCH ×3 (08:53→21:08)
[2023-03-01] MEDS: cefTRIAXone SOD 2 GM in D5W MINI-BAG PLUS 50 ML IV SCH (12:16)
[2023-03-01 14:00] VITALS: BP 125/92; TEMP 98.1; O2SAT 91
[2023-03-01] MEDS: OLANZapine 2.5MG TABLET PO PRN (15:03)
[2023-03-01 19:35] VITALS: BP 134/59; TEMP 97.9; O2SAT 94
[2023-03-01] MEDS: CHLORASEPTIC SPRAY MT PRN ×2 (21:06→23:28)
[2023-03-01] MEDS: FINASTERIDE 5MG TAB PO SCH (21:07)
[2023-03-01] MEDS: FOLIC ACID 1MG TAB PO SCH (21:07)
[2023-03-02] MEDS: CHLORASEPTIC SPRAY MT PRN ×2 (01:56→10:45)
[2023-03-02] MEDS: LEVALBUTEROL 1.25MG/3ML NEB SOLN INH SCH ×4 (02:21→20:33)
[2023-03-02] MEDS: SODIUM CHLORIDE HYPERTONIC 3% 4ML NEB SOL INH SCH ×4 (02:22→20:33)
[2023-03-02] MEDS: METOPROLOL TART 12.5 MG PER 1/2 TAB PO SCH ×4 (02:42→21:32)
[2023-03-02 06:05] VITALS: BP 147/77; TEMP 97.5; O2SAT 93
[2023-03-02 06:21] VITALS: BP_SYST 0; BP_SYST 118; BP_SYST 120; BP_DIAS 0; BP_DIAS 57; BP_DIAS 59; TEMP 97.7; O2SAT 0; O2SAT 91
[2023-03-02 06:31] LABS: HEMATOCRIT 41.4 % (42.0-52.0); HEMOGLOBIN 13.5 g/dl (13.5-17.5); MEAN CORPUSCULAR HEMOGLOBIN 30.5 pg (27.0-33.0); MEAN CORPUSCULAR HGB CONC 32.6 g/dl (32.0-36.5); MEAN CORPUSCULAR VOLUME 93.7 fl (80.0-96.0); PLATELET COUNT, AUTOMATED 207 10^3/uL (150-450); RED BLOOD COUNT 4.42 10^6/uL (4.30-6.10); WHITE BLOOD COUNT 15.1 10^3/uL (4.0-10.0)
[2023-03-02 06:56] LABS: BLOOD UREA NITROGEN 14 MG/DL (9-23); CALCIUM LEVEL 7.7 MG/DL (8.3-10.6); CARBON DIOXIDE LEVEL 32 MMOL/L (20-31); CHLORIDE LEVEL 102 MMOL/L (98-107); CREATININE FOR GFR 0.79 MG/DL (0.70-1.30); GLOMERULAR FILTRATION RATE > 60.0 (>42); GLUCOSE, FASTING 110 MG/DL (74-106); POTASSIUM SERUM 3.5 MMOL/L (3.5-5.1); SODIUM LEVEL 140 MMOL/L (136-145)
[2023-03-02] MEDS: predniSONE 20 MG TAB PO SCH (08:17)
[2023-03-02] MEDS: THIAMINE 100 MG TAB PO SCH (08:17)
[2023-03-02] MEDS: PANTOPRAZOLE 40MG TAB (PROTONIX) PO SCH (08:17)
[2023-03-02] MEDS: QUEtiapine FUMARATE 50MG TAB PO SCH ×2 (08:17→21:30)
[2023-03-02] MEDS: OLANZapine 2.5MG TABLET PO PRN (08:25)
[2023-03-02] MEDS: HEPARIN SOD (PORCINE) 5000UNITS/ML 1ML VIAL/SYRINGE SC SCH ×2 (09:00→21:31)
[2023-03-02] MEDS: LACRILUBE (AKWA TEARS) OPHTH OINT 3.5GM OD SCH ×3 (09:00→21:31)
[2023-03-02] MEDS: cefTRIAXone SOD 2 GM in D5W MINI-BAG PLUS 50 ML IV SCH (12:23)
[2023-03-02 14:00] VITALS: BP 112/56; TEMP 97.9; O2SAT 92
[2023-03-02 20:27] VITALS: BP 112/57; TEMP 97.5; O2SAT 90
[2023-03-02] MEDS: FINASTERIDE 5MG TAB PO SCH (21:30)
[2023-03-02] MEDS: FOLIC ACID 1MG TAB PO SCH (21:30)
[2023-03-02] MEDS: RAMELTEON 8 MG TAB (ROZEREM) PO PRN (22:37)
[2023-03-02] MEDS: ACETAMINOPHEN TAB 650MG DOSE (2X325MG) PO PRN (22:38)
[2023-03-02] MEDS: TAMSULOSIN 0.4 MG CAP PO SCH (22:40)
[2023-03-03] MEDS: SODIUM CHLORIDE HYPERTONIC 3% 4ML NEB SOL INH SCH ×2 (01:25→07:14)
[2023-03-03] MEDS: LEVALBUTEROL 1.25MG/3ML NEB SOLN INH SCH ×4 (01:26→20:53)
[2023-03-03] MEDS: METOPROLOL TART 12.5 MG PER 1/2 TAB PO SCH ×4 (02:42→21:26)
[2023-03-03 05:43] LABS: HEMATOCRIT 42.1 % (42.0-52.0); HEMOGLOBIN 13.5 g/dl (13.5-17.5); MEAN CORPUSCULAR HGB CONC 32.1 g/dl (32.0-36.5); MEAN CORPUSCULAR VOLUME 93.6 fl (80.0-96.0); PLATELET COUNT, AUTOMATED 204 10^3/uL (150-450); WHITE BLOOD COUNT 15.3 10^3/uL (4.0-10.0)
[2023-03-03 06:10] VITALS: BP 106/56; TEMP 97.5; O2SAT 96
[2023-03-03 06:22] LABS: BLOOD UREA NITROGEN 16 MG/DL (9-23); CALCIUM LEVEL 7.9 MG/DL (8.3-10.6); CARBON DIOXIDE LEVEL 32 MMOL/L (20-31); CHLORIDE LEVEL 102 MMOL/L (98-107); CREATININE FOR GFR 0.77 MG/DL (0.70-1.30); GLOMERULAR FILTRATION RATE > 60.0 (>42); GLUCOSE, FASTING 103 MG/DL (74-106); MAGNESIUM LEVEL 1.9 MG/DL (1.8-2.4); POTASSIUM SERUM 3.7 MMOL/L (3.5-5.1); SODIUM LEVEL 139 MMOL/L (136-145)
[2023-03-03] MEDS: HEPARIN SOD (PORCINE) 5000UNITS/ML 1ML VIAL/SYRINGE SC SCH ×2 (09:15→21:28)
[2023-03-03] MEDS: PANTOPRAZOLE 40MG TAB (PROTONIX) PO SCH (09:18)
[2023-03-03] MEDS: QUEtiapine FUMARATE 50MG TAB PO SCH ×2 (09:18→21:27)
[2023-03-03] MEDS: predniSONE 20 MG TAB PO SCH (09:18)
[2023-03-03] MEDS: THIAMINE 100 MG TAB PO SCH (09:18)
[2023-03-03] MEDS: LACRILUBE (AKWA TEARS) OPHTH OINT 3.5GM OD SCH ×3 (09:19→21:29)
[2023-03-03] MEDS: SODIUM CHLORIDE HYPERTONIC 3% 15ML NEB SOL INH SCH ×2 (13:26→20:53)
[2023-03-03 14:11] VITALS: BP 106/58; TEMP 97.7; O2SAT 93
[2023-03-03 19:43] VITALS: BP 106/55; TEMP 97.7; O2SAT 95
[2023-03-03] MEDS: TAMSULOSIN 0.4 MG CAP PO SCH (21:26)
[2023-03-03] MEDS: FINASTERIDE 5MG TAB PO SCH (21:27)
[2023-03-03] MEDS: FOLIC ACID 1MG TAB PO SCH (21:27)
[2023-03-03] MEDS: CHLORASEPTIC SPRAY MT PRN ×2 (21:37→23:38)
[2023-03-03] MEDS: NYSTATIN 500,000U/5ML SUSP UDC SS SCH (23:38)
[2023-03-04] MEDS: LEVALBUTEROL 1.25MG/3ML NEB SOLN INH SCH ×4 (02:17→21:10)
[2023-03-04] MEDS: SODIUM CHLORIDE HYPERTONIC 3% 15ML NEB SOL INH SCH ×4 (02:17→21:09)
[2023-03-04] MEDS: METOPROLOL TART 12.5 MG PER 1/2 TAB PO SCH ×4 (02:31→20:40)
[2023-03-04] MEDS: CHLORASEPTIC SPRAY MT PRN ×2 (02:32→20:36)
[2023-03-04] MEDS: ACETAMINOPHEN TAB 650MG DOSE (2X325MG) PO PRN (02:32)
[2023-03-04 06:10] VITALS: BP 110/52; TEMP 97.9; O2SAT 93
[2023-03-04 06:18] LABS: HEMATOCRIT 40.4 % (42.0-52.0); HEMOGLOBIN 13.3 g/dl (13.5-17.5); MEAN CORPUSCULAR HEMOGLOBIN 30.7 pg (27.0-33.0); MEAN CORPUSCULAR HGB CONC 32.9 g/dl (32.0-36.5); MEAN CORPUSCULAR VOLUME 93.3 fl (80.0-96.0); PLATELET COUNT, AUTOMATED 222 10^3/uL (150-450); RED BLOOD COUNT 4.33 10^6/uL (4.30-6.10); WHITE BLOOD COUNT 15.1 10^3/uL (4.0-10.0)
[2023-03-04 06:57] LABS: BLOOD UREA NITROGEN 11 MG/DL (9-23); CALCIUM LEVEL 8.1 MG/DL (8.3-10.6); CARBON DIOXIDE LEVEL 31 MMOL/L (20-31); CHLORIDE LEVEL 103 MMOL/L (98-107); CREATININE FOR GFR 0.71 MG/DL (0.70-1.30); GLOMERULAR FILTRATION RATE > 60.0 (>42); GLUCOSE, FASTING 107 MG/DL (74-106); MAGNESIUM LEVEL 1.8 MG/DL (1.8-2.4); POTASSIUM SERUM 3.8 MMOL/L (3.5-5.1); SODIUM LEVEL 139 MMOL/L (136-145)
[2023-03-04] MEDS: HEPARIN SOD (PORCINE) 5000UNITS/ML 1ML VIAL/SYRINGE SC SCH ×2 (08:53→20:36)
[2023-03-04] MEDS: QUEtiapine FUMARATE 50MG TAB PO SCH ×2 (08:54→20:35)
[2023-03-04] MEDS: THIAMINE 100 MG TAB PO SCH (08:54)
[2023-03-04] MEDS: predniSONE 20 MG TAB PO SCH (08:54)
[2023-03-04] MEDS: LACRILUBE (AKWA TEARS) OPHTH OINT 3.5GM OD SCH ×3 (08:55→20:37)
[2023-03-04] MEDS: PANTOPRAZOLE 40MG TAB (PROTONIX) PO SCH (08:55)
[2023-03-04] MEDS: NYSTATIN 500,000U/5ML SUSP UDC SS SCH ×4 (08:56→20:35)
[2023-03-04] MEDS ORDERED: POTASSIUM CHLORIDE 10MEQ SR TABLET PO ONE (12:50)
[2023-03-04] MEDS ORDERED: MAGNESIUM OXIDE 400MG TAB (MAG-OX) PO ONE (12:50)
[2023-03-04] MEDS: FUROSEMIDE 20 MG TAB PO SCH (13:51)
[2023-03-04 14:00] VITALS: BP 113/51; O2SAT 94
[2023-03-04] MEDS: ASCORBIC ACID 500 MG TAB PO SCH (14:11)
[2023-03-04] MEDS: VITAMIN D 1,000 INTERNATIONAL UNITS TABLET PO SCH (14:11)
[2023-03-04] MEDS: TAMSULOSIN 0.4 MG CAP PO SCH (20:35)
[2023-03-04] MEDS: FINASTERIDE 5MG TAB PO SCH (20:35)
[2023-03-04] MEDS: FOLIC ACID 1MG TAB PO SCH (20:36)
[2023-03-04 20:50] VITALS: BP 116/59; TEMP 98.2; O2SAT 95
[2023-03-05] MEDS: SODIUM CHLORIDE HYPERTONIC 3% 15ML NEB SOL INH SCH ×4 (01:38→20:04)
[2023-03-05] MEDS: LEVALBUTEROL 1.25MG/3ML NEB SOLN INH SCH ×4 (01:38→20:04)
[2023-03-05] MEDS: METOPROLOL TART 12.5 MG PER 1/2 TAB PO SCH ×4 (02:48→21:19)
[2023-03-05 05:22] VITALS: BP 114/56; TEMP 97.7; O2SAT 91
[2023-03-05 06:23] LABS: HEMOGLOBIN 13.5 g/dl (13.5-17.5); MEAN CORPUSCULAR HEMOGLOBIN 30.5 pg (27.0-33.0); MEAN CORPUSCULAR HGB CONC 32.1 g/dl (32.0-36.5); MEAN CORPUSCULAR VOLUME 94.8 fl (80.0-96.0); PLATELET COUNT, AUTOMATED 222 10^3/uL (150-450); RED BLOOD COUNT 4.43 10^6/uL (4.30-6.10); WHITE BLOOD COUNT 14.9 10^3/uL (4.0-10.0)
[2023-03-05] MEDS: NYSTATIN 500,000U/5ML SUSP UDC SS SCH ×4 (08:38→21:19)
[2023-03-05] MEDS: PANTOPRAZOLE 40MG TAB (PROTONIX) PO SCH (08:39)
[2023-03-05] MEDS: THIAMINE 100 MG TAB PO SCH (08:39)
[2023-03-05] MEDS: QUEtiapine FUMARATE 50MG TAB PO SCH ×2 (08:39→21:20)
[2023-03-05] MEDS: HEPARIN SOD (PORCINE) 5000UNITS/ML 1ML VIAL/SYRINGE SC SCH (08:39)
[2023-03-05] MEDS: predniSONE 10MG TAB PO SCH (08:39)
[2023-03-05] MEDS: VITAMIN D 1,000 INTERNATIONAL UNITS TABLET PO SCH (08:40)
[2023-03-05] MEDS: ASCORBIC ACID 500 MG TAB PO SCH (08:40)
[2023-03-05] MEDS: LACRILUBE (AKWA TEARS) OPHTH OINT 3.5GM OD SCH ×3 (08:40→21:19)
[2023-03-05] MEDS ORDERED: MAGNESIUM OXIDE 400MG TAB (MAG-OX) PO ONE (14:00)
[2023-03-05] MEDS: OLANZapine 2.5MG TABLET PO PRN (16:05)
[2023-03-05] MEDS: BENZOCAINE 10% 9GM TUBE (ANBESOL) MT SCH ×2 (17:00→21:19)
[2023-03-05] MEDS: RIVAROXABAN 10MG TAB (XARELTO) PO SCH (18:28)
[2023-03-05] MEDS: TAMSULOSIN 0.4 MG CAP PO SCH (21:18)
[2023-03-05] MEDS: FINASTERIDE 5MG TAB PO SCH (21:19)
[2023-03-05] MEDS: FOLIC ACID 1MG TAB PO SCH (21:20)
[2023-03-05] MEDS: CHLORASEPTIC SPRAY MT PRN (21:59)
[2023-03-06] MEDS: SODIUM CHLORIDE HYPERTONIC 3% 15ML NEB SOL INH SCH ×4 (01:04→19:41)
[2023-03-06] MEDS: LEVALBUTEROL 1.25MG/3ML NEB SOLN INH SCH ×4 (01:04→19:39)
[2023-03-06] MEDS: METOPROLOL TART 12.5 MG PER 1/2 TAB PO SCH ×4 (03:27→20:30)
[2023-03-06] MEDS: OLANZapine 2.5MG TABLET PO PRN (04:23)
[2023-03-06 06:16] VITALS: BP 119/54; TEMP 97.7; O2SAT 94
[2023-03-06] MEDS: LACRILUBE (AKWA TEARS) OPHTH OINT 3.5GM OD SCH ×3 (10:00→20:26)
[2023-03-06] MEDS: NYSTATIN 500,000U/5ML SUSP UDC SS SCH ×4 (10:00→20:26)
[2023-03-06] MEDS: BENZOCAINE 10% 9GM TUBE (ANBESOL) MT SCH ×4 (10:00→20:26)
[2023-03-06] MEDS: PANTOPRAZOLE 40MG TAB (PROTONIX) PO SCH (10:01)
[2023-03-06] MEDS: THIAMINE 100 MG TAB PO SCH (10:01)
[2023-03-06] MEDS: predniSONE 10MG TAB PO SCH (10:01)
[2023-03-06] MEDS: QUEtiapine FUMARATE 50MG TAB PO SCH ×2 (10:02→20:26)
[2023-03-06] MEDS: ASCORBIC ACID 500 MG TAB PO SCH (10:02)
[2023-03-06] MEDS: VITAMIN D 1,000 INTERNATIONAL UNITS TABLET PO SCH (10:02)
[2023-03-06 13:54] VITALS: BP 107/63
[2023-03-06] MEDS: FUROSEMIDE 20 MG TAB PO SCH (13:58)
[2023-03-06] MEDS: RIVAROXABAN 10MG TAB (XARELTO) PO SCH (17:35)
[2023-03-06] MEDS: FOLIC ACID 1MG TAB PO SCH (20:27)
[2023-03-06] MEDS: RAMELTEON 8 MG TAB (ROZEREM) PO PRN (20:27)
[2023-03-06] MEDS: FINASTERIDE 5MG TAB PO SCH (20:27)
[2023-03-06] MEDS: TAMSULOSIN 0.4 MG CAP PO SCH (20:27)
[2023-03-07] MEDS: SODIUM CHLORIDE HYPERTONIC 3% 15ML NEB SOL INH SCH ×4 (01:29→19:28)
[2023-03-07] MEDS: LEVALBUTEROL 1.25MG/3ML NEB SOLN INH SCH ×4 (01:29→19:28)
[2023-03-07] MEDS: CHLORASEPTIC SPRAY MT PRN ×2 (03:12→04:01)
[2023-03-07] MEDS: METOPROLOL TART 12.5 MG PER 1/2 TAB PO SCH ×4 (03:12→20:42)
[2023-03-07 06:11] VITALS: BP 124/64; TEMP 97.9; O2SAT 98
[2023-03-07] MEDS: NYSTATIN 500,000U/5ML SUSP UDC SS SCH ×4 (09:00→21:27)
[2023-03-07] MEDS: BENZOCAINE 10% 9GM TUBE (ANBESOL) MT SCH ×4 (09:00→21:28)
[2023-03-07] MEDS: LACRILUBE (AKWA TEARS) OPHTH OINT 3.5GM OD SCH ×3 (09:00→21:27)
[2023-03-07] MEDS: PANTOPRAZOLE 40MG TAB (PROTONIX) PO SCH (11:32)
[2023-03-07] MEDS: ASCORBIC ACID 500 MG TAB PO SCH (11:32)
[2023-03-07] MEDS: QUEtiapine FUMARATE 50MG TAB PO SCH ×2 (11:32→21:28)
[2023-03-07] MEDS: VITAMIN D 1,000 INTERNATIONAL UNITS TABLET PO SCH (11:32)
[2023-03-07] MEDS: THIAMINE 100 MG TAB PO SCH (11:32)
[2023-03-07] MEDS: predniSONE 10MG TAB PO SCH (11:32)
[2023-03-07 15:21] VITALS: BP 124/65
[2023-03-07] MEDS: RIVAROXABAN 10MG TAB (XARELTO) PO SCH (18:07)
[2023-03-07] MEDS: FOLIC ACID 1MG TAB PO SCH (21:28)
[2023-03-07] MEDS: RAMELTEON 8 MG TAB (ROZEREM) PO PRN (21:28)
[2023-03-07] MEDS: FINASTERIDE 5MG TAB PO SCH (21:28)
[2023-03-07] MEDS: TAMSULOSIN 0.4 MG CAP PO SCH (21:28)
[2023-03-08] MEDS: LEVALBUTEROL 1.25MG/3ML NEB SOLN INH SCH ×4 (01:24→20:36)
[2023-03-08] MEDS: METOPROLOL TART 12.5 MG PER 1/2 TAB PO SCH ×4 (02:42→20:42)
[2023-03-08 06:47] VITALS: BP 110/62; TEMP 97.3; O2SAT 96
[2023-03-08] MEDS: SODIUM CHLORIDE HYPERTONIC 3% 15ML NEB SOL INH SCH ×3 (07:11→20:36)
[2023-03-08] MEDS: VITAMIN D 1,000 INTERNATIONAL UNITS TABLET PO SCH (10:06)
[2023-03-08] MEDS: QUEtiapine FUMARATE 50MG TAB PO SCH ×2 (10:06→21:20)
[2023-03-08] MEDS: THIAMINE 100 MG TAB PO SCH (10:06)
[2023-03-08] MEDS: ASCORBIC ACID 500 MG TAB PO SCH (10:06)
[2023-03-08] MEDS: BENZOCAINE 10% 9GM TUBE (ANBESOL) MT SCH ×4 (10:06→21:20)
[2023-03-08] MEDS: PANTOPRAZOLE 40MG TAB (PROTONIX) PO SCH (10:06)
[2023-03-08] MEDS: LACRILUBE (AKWA TEARS) OPHTH OINT 3.5GM OD SCH ×3 (10:07→21:20)
[2023-03-08] MEDS: NYSTATIN 500,000U/5ML SUSP UDC SS SCH ×4 (10:07→21:19)
[2023-03-08] MEDS: FUROSEMIDE 20 MG TAB PO SCH (13:50)
[2023-03-08] MEDS: CHLORASEPTIC SPRAY MT PRN ×2 (17:18→21:20)
[2023-03-08] MEDS: RIVAROXABAN 10MG TAB (XARELTO) PO SCH (17:18)
[2023-03-08] MEDS: FINASTERIDE 5MG TAB PO SCH (21:19)
[2023-03-08] MEDS: FOLIC ACID 1MG TAB PO SCH (21:19)
[2023-03-08] MEDS: TAMSULOSIN 0.4 MG CAP PO SCH (21:20)
[2023-03-08] MEDS: RAMELTEON 8 MG TAB (ROZEREM) PO PRN (21:20)
[2023-03-09] MEDS: LEVALBUTEROL 1.25MG/3ML NEB SOLN INH SCH ×4 (01:42→20:34)
[2023-03-09] MEDS: SODIUM CHLORIDE HYPERTONIC 3% 15ML NEB SOL INH SCH ×4 (01:42→20:34)
[2023-03-09] MEDS: METOPROLOL TART 12.5 MG PER 1/2 TAB PO SCH ×4 (01:58→20:42)
[2023-03-09 06:07] VITALS: BP 100/40; TEMP 97.9; O2SAT 96
[2023-03-09 06:27] VITALS: BP 115/58
[2023-03-09] MEDS: LACRILUBE (AKWA TEARS) OPHTH OINT 3.5GM OD SCH ×3 (08:51→22:12)
[2023-03-09] MEDS: CHLORASEPTIC SPRAY MT PRN ×2 (08:51→18:13)
[2023-03-09] MEDS: BENZOCAINE 10% 9GM TUBE (ANBESOL) MT SCH ×4 (08:51→22:13)
[2023-03-09] MEDS: ASCORBIC ACID 500 MG TAB PO SCH (08:52)
[2023-03-09] MEDS: THIAMINE 100 MG TAB PO SCH (08:52)
[2023-03-09] MEDS: QUEtiapine FUMARATE 50MG TAB PO SCH ×2 (08:52→22:12)
[2023-03-09] MEDS: PANTOPRAZOLE 40MG TAB (PROTONIX) PO SCH (08:52)
[2023-03-09] MEDS: VITAMIN D 1,000 INTERNATIONAL UNITS TABLET PO SCH (08:52)
[2023-03-09] MEDS: NYSTATIN 500,000U/5ML SUSP UDC SS SCH ×4 (08:52→22:12)
[2023-03-09 14:00] VITALS: BP 118/59; TEMP 98.1; O2SAT 95
[2023-03-09] MEDS: RIVAROXABAN 10MG TAB (XARELTO) PO SCH (18:10)
[2023-03-09] MEDS: TAMSULOSIN 0.4 MG CAP PO SCH (22:12)
[2023-03-09] MEDS: FINASTERIDE 5MG TAB PO SCH (22:12)
[2023-03-09] MEDS: FOLIC ACID 1MG TAB PO SCH (22:12)
[2023-03-10] MEDS: CHLORASEPTIC SPRAY MT PRN ×4 (00:45→20:18)
[2023-03-10] MEDS: SODIUM CHLORIDE HYPERTONIC 3% 15ML NEB SOL INH SCH ×4 (01:18→20:41)
[2023-03-10] MEDS: LEVALBUTEROL 1.25MG/3ML NEB SOLN INH SCH ×4 (01:18→20:41)
[2023-03-10] MEDS: METOPROLOL TART 12.5 MG PER 1/2 TAB PO SCH ×4 (02:11→20:17)
[2023-03-10 06:13] VITALS: BP 129/46; TEMP 98.8; O2SAT 94
[2023-03-10] MEDS: LACRILUBE (AKWA TEARS) OPHTH OINT 3.5GM OD SCH ×3 (09:00→20:17)
[2023-03-10] MEDS: VITAMIN D 1,000 INTERNATIONAL UNITS TABLET PO SCH (09:09)
[2023-03-10] MEDS: ASCORBIC ACID 500 MG TAB PO SCH (09:09)
[2023-03-10] MEDS: QUEtiapine FUMARATE 50MG TAB PO SCH ×2 (09:09→20:15)
[2023-03-10] MEDS: PANTOPRAZOLE 40MG TAB (PROTONIX) PO SCH (09:09)
[2023-03-10] MEDS: THIAMINE 100 MG TAB PO SCH (09:10)
[2023-03-10] MEDS: BENZOCAINE 10% 9GM TUBE (ANBESOL) MT SCH ×2 (09:11→13:00)
[2023-03-10] MEDS: FUROSEMIDE 20 MG TAB PO SCH (14:10)
[2023-03-10] MEDS: RIVAROXABAN 10MG TAB (XARELTO) PO SCH (17:33)
[2023-03-10] MEDS: FINASTERIDE 5MG TAB PO SCH (20:15)
[2023-03-10] MEDS: TAMSULOSIN 0.4 MG CAP PO SCH (20:15)
[2023-03-10] MEDS: FOLIC ACID 1MG TAB PO SCH (20:15)
[2023-03-10 22:00] VITALS: BP 126/54; TEMP 98.6
[2023-03-11] MEDS: LEVALBUTEROL 1.25MG/3ML NEB SOLN INH SCH ×4 (00:57→19:55)
[2023-03-11] MEDS: SODIUM CHLORIDE HYPERTONIC 3% 15ML NEB SOL INH SCH ×4 (00:57→19:56)
[2023-03-11] MEDS: METOPROLOL TART 12.5 MG PER 1/2 TAB PO SCH ×4 (02:27→19:59)
[2023-03-11] MEDS: CHLORASEPTIC SPRAY MT PRN ×2 (05:07→15:08)
[2023-03-11 06:00] VITALS: BP 124/46; TEMP 97.9; O2SAT 95
[2023-03-11] MEDS: PANTOPRAZOLE 40MG TAB (PROTONIX) PO SCH (08:20)
[2023-03-11] MEDS: QUEtiapine FUMARATE 50MG TAB PO SCH ×2 (08:20→19:58)
[2023-03-11] MEDS: VITAMIN D 1,000 INTERNATIONAL UNITS TABLET PO SCH (08:20)
[2023-03-11] MEDS: THIAMINE 100 MG TAB PO SCH (08:20)
[2023-03-11] MEDS: LACRILUBE (AKWA TEARS) OPHTH OINT 3.5GM OD SCH ×3 (08:20→19:59)
[2023-03-11] MEDS: ASCORBIC ACID 500 MG TAB PO SCH (08:20)
[2023-03-11] MEDS ORDERED: OLAN2.5T25 PO (10:33)
[2023-03-11] MEDS ORDERED: METO1TAB87 PO (10:33)
[2023-03-11] MEDS ORDERED: PANT40TA29 PO (10:33)
[2023-03-11] MEDS ORDERED: XARE10TA PO (10:35)
[2023-03-11] MEDS ORDERED: THIA100TA PO (10:35)
[2023-03-11] MEDS ORDERED: QUET50TA4 PO (10:35)
[2023-03-11] MEDS ORDERED: METO25TA PO (10:42)
[2023-03-11] MEDS: RIVAROXABAN 10MG TAB (XARELTO) PO SCH (17:52)
[2023-03-11] MEDS: RAMELTEON 8 MG TAB (ROZEREM) PO PRN (19:58)
[2023-03-11] MEDS: FOLIC ACID 1MG TAB PO SCH (19:58)
[2023-03-11] MEDS: FINASTERIDE 5MG TAB PO SCH (19:58)
[2023-03-11] MEDS: TAMSULOSIN 0.4 MG CAP PO SCH (19:59)
[2023-03-12] MEDS: LEVALBUTEROL 1.25MG/3ML NEB SOLN INH SCH ×3 (01:30→13:12)
[2023-03-12] MEDS: SODIUM CHLORIDE HYPERTONIC 3% 15ML NEB SOL INH SCH ×3 (01:30→13:13)
[2023-03-12] MEDS: METOPROLOL TART 12.5 MG PER 1/2 TAB PO SCH ×3 (02:42→14:03)
[2023-03-12 06:00] VITALS: BP 128/68; TEMP 98.1; O2SAT 99
[2023-03-12] MEDS: QUEtiapine FUMARATE 50MG TAB PO SCH (09:15)
[2023-03-12] MEDS: VITAMIN D 1,000 INTERNATIONAL UNITS TABLET PO SCH (09:15)
[2023-03-12] MEDS: LACRILUBE (AKWA TEARS) OPHTH OINT 3.5GM OD SCH (09:15)
[2023-03-12] MEDS: THIAMINE 100 MG TAB PO SCH (09:15)
[2023-03-12] MEDS: ASCORBIC ACID 500 MG TAB PO SCH (09:15)
[2023-03-12] MEDS: PANTOPRAZOLE 40MG TAB (PROTONIX) PO SCH (09:15)
[2023-03-12 09:18] VITALS: BP 122/61
[2023-03-12] MEDS: FUROSEMIDE 20 MG TAB PO SCH (13:00)
[2023-03-12 14:03] VITALS: BP 116/61
[2023-03-12] MEDS: ACETAMINOPHEN TAB 650MG DOSE (2X325MG) PO PRN (14:03)
== END 2023-03-12 14:30 | DRG 896 ==
LOC: M ED 17:07 → M ED INP 21:35 → ENRESERV 23:12 → M PCU 23:35 → M ICU 02-16 11:53 → M MS5PR 02-27 16:22
PROVIDERS: ADMIT Internal Medicine; ATTEND General Practice
PROC: 0BH17EZ Insertion of Endotracheal Airway into Trachea, Via Natural or Artificial Opening (ICD-10-PCS; principal; 2023-02-18)
PROC: 5A1945Z Respiratory Ventilation, 24-96 Consecutive Hours (ICD-10-PCS; 2023-02-18)
PROC: B246ZZZ Ultrasonography of Right and Left Heart (ICD-10-PCS; 2023-02-22)
DX: F10.231 Alcohol dependence with withdrawal delirium (principal); G93.41 Metabolic encephalopathy; J96.01 Acute respiratory failure with hypoxia; J69.0 Pneumonitis due to inhalation of food and vomit; J15.9 Unspecified bacterial pneumonia; I50.33 Acute on chronic diastolic (congestive) heart failure; N39.0 Urinary tract infection, site not specified; M62.82 Rhabdomyolysis; J98.11 Atelectasis; I47.1 Supraventricular tachycardia; E87.0 Hyperosmolality and hypernatremia; I47.20 Ventricular tachycardia, unspecified; E87.3 Alkalosis; E87.1 Hypo-osmolality and hyponatremia; F05 Delirium due to known physiological condition; Z66 Do not resuscitate; I11.0 Hypertensive heart disease with heart failure; G89.29 Other chronic pain; R13.12 Dysphagia, oropharyngeal phase; M54.50 Low back pain, unspecified; E87.6 Hypokalemia; R33.9 Retention of urine, unspecified; R74.01 Elevation of levels of liver transaminase levels; R29.6 Repeated falls; F39 Unspecified mood [affective] disorder; N32.81 Overactive bladder; E78.5 Hyperlipidemia, unspecified; N40.1 Benign prostatic hyperplasia with lower urinary tract symptoms; Z96.642 Presence of left artificial hip joint; Z87.891 Personal history of nicotine dependence; Z79.899 Other long term (current) drug therapy; Z88.8 Allergy status to other drugs, medicaments and biological substances

== ENCOUNTER → 2024-11-17 | Outpatient (CLI) | payer MEDICARE ==
[~2024-11-17] MED LIST changes: +AMIT25TA19 PO; +BUPR-597 PO; -BUPR300T92 PO; +GABA-1172 PO; -GABA-282 PO; +METO1TAB87 PO; +METO25TA PO; +OLAN2.5T53 PO; +QUET50TA4 PO; +THIA100TA PO; +XARE10TA PO
[2024-11-17 18:46] LABS: APPEARANCE, URINE CLEAR (CLEAR); BACTERIA, URINE AUTO 1+ (NEGATIVE); BILIRUBIN, URINE AUTO NEGATIVE (NEGATIVE); BLOOD, URINE BLOOD 1+ (NEGATIVE); COLOR, URINE AMBER (YELLOW); GLUCOSE, URINE (UA) AUTO NEGATIVE (NEGATIVE); KETONE, URINE AUTO TRACE mg/dL (NEGATIVE); LEUKOCYTE ESTERASE, URINE AUTO NEGATIVE (NEGATIVE); MUCUS, URINE MODERATE (NEGATIVE); NITRITE, URINE AUTO POSITIVE (NEGATIVE); PROTEIN, URINE AUTO NEGATIVE (NEGATIVE); RBC, URINE AUTO 9 /HPF (0-3); SPECIFIC GRAVITY URINE AUTO 1.017 (1.002-1.035); SQUAMOUS EPITHELIAL CELL UR AU 0 /HPF (0-6); WBC, URINE AUTO 3 /HPF (0-3)
[2024-11-17 18:47] LABS: HEMOGLOBIN 16.3 g/dl (13.5-17.5); MEAN CORPUSCULAR HEMOGLOBIN 31.1 pg (27.0-33.0); MEAN CORPUSCULAR HGB CONC 32.6 g/dl (32.0-36.5); MEAN CORPUSCULAR VOLUME 95.4 fl (80.0-96.0); PLATELET COUNT, AUTOMATED 230 10^3/uL (150-450); RED BLOOD COUNT 5.24 10^6/uL (4.30-6.10)
[2024-11-17 19:05] LABS: HEMOGLOBIN A1c 4.8 % (4.0-6.0)
[2024-11-17 19:19] LABS: PROSTATIC SPECIFIC AG MONITOR 1.22 NG/ML (< 4.00)
[2024-11-17 19:21] LABS: ALBUMIN 3.8 G/DL (3.2-5.2); ALKALINE PHOSPHATASE 86 U/L (40-129); ALT/SGPT 16 U/L (7.0-40); AST/SGOT 15 U/L (<34); BILIRUBIN,TOTAL 0.8 MG/DL (0.3-1.2); BLOOD UREA NITROGEN 8 MG/DL (9-23); CALCIUM LEVEL 9.3 MG/DL (8.3-10.6); CARBON DIOXIDE LEVEL 30 MMOL/L (20-31); CHLORIDE LEVEL 104 MMOL/L (98-107); CHOLESTEROL LEVEL 215 MG/DL (<200); CHOLESTEROL RISK RATIO 3.01 (<5); GLOMERULAR FILTRATION RATE > 60.0 (>42); GLUCOSE, FASTING 94 MG/DL (74-106); HDL CHOLESTEROL 71.2 MG/DL (>40); LDL CHOLESTEROL 98.6 MG/DL (<100); NON-HDL-C 143.8 MG/DL; POTASSIUM SERUM 4.1 MMOL/L (3.5-5.1); SODIUM LEVEL 143 MMOL/L (136-145); TOTAL PROTEIN 6.8 G/DL (5.7-8.2); TRIGLYCERIDES LEVEL 226 MG/DL (<150)
== END ==
LOC: M WUC 15:23
PROVIDERS: ATTEND Physician Assistant
DX: R73.03 Prediabetes (principal); E78.5 Hyperlipidemia, unspecified; Z12.5 Encounter for screening for malignant neoplasm of prostate; I51.7 Cardiomegaly; R97.20 Elevated prostate specific antigen [PSA]